=== PATIENT | male | born 1995 | race Caucasian/White ===

== ENCOUNTER 2020-03-25 14:26 | Emergency (ER) | payer BC, OTHER ==
[~2020-03-25] VITALS: Ht 185.4 cm; Wt 66.7 kg
[2020-03-25] MEDS ORDERED: SUBVENITE150 MG PO (14:41)
--- OUTSIDE RECORDS SUMMARY | 2020-03-25 16:10 | XMS ---
PreManage Notification: SPRING MCNAMARA Security Seed Potato Arranger Events No recent Security Events currently on file CRITERIA MET - [facility] - 2 Visits in 30 Days CARE PROVIDERS Jose Perez Community Health Worker 06/29/2019-Dionicio Navarro - PHONE: [phone] [facility] PHONE: Unknown Jeanette has no Care Guidelines for this patient. EScotty VISIT COUNT (12 MO.) [address] [place] [address] TOTAL 8 NOTE: Visits indicate total known visits. ED/UCC VISIT TRACKING (12 MO.) 03/25/2020 14:28 [facility] [place] TYPE: Emergency COMPLAINT: - CHIN LAC 02/24/2020 04:15 [facility] [place] TYPE: Emergency DIAGNOSES: - Unspecified convulsions - siezure 12/19/2019 20:24 [facility] [place] [facility]: Emergency DIAGNOSES: - AMB - Seizure (Adult - Prior Hx Of) - Unspecified convulsions 11/27/2019 11:17 [facility] DIAGNOSES: - SEIZURES 09/28/2019 10:12 [facility] TYPE: Emergency DIAGNOSES: - Left Knee Pain - Knee Pain - Unspecified injury of left lower leg, initial encounter 07/19/2019 08:04 [facility] [place] TYPE: Emergency DIAGNOSES: - siezures - Epilepsy, unspecified, not intractable, without status epilep 07/11/2019 07:43 [facility] [place] TYPE: Emergency DIAGNOSES: - Epilepsy, unspecified, not intractable, without status epilep - SEIZURE - Unspecified convulsions 06/26/2019 08:27 [facility] [place] TYPE: Emergency DIAGNOSES: - seizure - Unspecified convulsions INPATIENT VISIT TRACKING (12 MO.) 11/27/2019 11:17 [facility] [place] TYPE: Medical Surgical DIAGNOSES: - SEIZURES - Unspecified convulsions [email or web address]
[2020-03-25] MEDS ORDERED: CLEOCIN HCL300 MG PO (18:47)
--- NOTE | 2020-03-27 16:34 | EKG ---
[facility] [address] [facility] [place] [address] Signed Normal sinus rhythm Incomplete right bundle branch block Borderline ECG No previous ECGs available Confirmed by ALEJANDRO CHANG DO ([id number]) on 03/27/2020 4:33:55 PM Electronically Signed By: ALEJANDRO CHANG DO 03/27/20 1634 PATIENT NAME: SPRING MCNAMARA Electrocardiogram DATE OF : [birth year] PHYSICIAN: ALEJANDRO CHANG DO REPORT #: [id number] REPORT IS CONFIDENTIAL AND NOT TO BE RELEASED WITHOUT AUTHORIZATION
== END 2020-03-25 19:04 ==
LOC: ED 14:26
PROC: 0HQ1XZZ Repair Face Skin, External Approach (ICD-10-PCS; principal; 2020-03-25)
DX: R56.9 Unspecified convulsions (principal); S01.81XA Laceration without foreign body of other part of head, initial encounter; F17.200 Nicotine dependence, unspecified, uncomplicated; Z23 Encounter for immunization; Z79.899 Other long term (current) drug therapy; X58.XXXA Exposure to other specified factors, initial encounter
CPT/HCPCS: 12011; 80053; 85025; 90471; 90715; 93005; 93010; 99284-25

== ENCOUNTER 2020-04-29 21:51 | Emergency (ER) | payer BC, OTHER ==
[~2020-04-29] VITALS: Ht 185.4 cm; Wt 66.7 kg
--- OUTSIDE RECORDS SUMMARY | ~2020-04-29 | XMS | Encounter Summary ---
Demographics + + + | Address | [address] | | | [place] [address] | + + + | Home Phone | | + + + | Preferred Language | Unknown | + + + | Marital Status | Single | + + + | Latter-Day Affiliation | 1013 | + + + | Race | Unknown | + + + | Ethnic Group | Unknown | + + + Author + + + | Author | [facility] | | | and [place] | + + + | Organization | [facility] | | | and [place] | + + + | Address | Unknown | + + + | Phone | Unavailable | + + + Support + + + + + | Name | Relationship | Address | Phone | + + + + + | Mandy Newton | ECON | [address] | | | | | [place] | | | | | [address] | | + + + + + Care Team Providers + +------+ + | Care Automatic Dry Starch Operator Name | Role | Phone | + +------+ + | Missy Gaston | PCP | | + +------+ + Encounter Details +--------+ + + + + | Date | Type | Department | Care Team | Description | +--------+ + + + + | 12/08/ | Documentati | [facility] | Tessa Dominguez, | | | 2016 | on | [facility] | MD [address] | | | | | [address] | [address] [place], | | | | | [address] [place] | [place] [address] | | | | | [address] | [phone] | | | | | [phone] | | | +--------+ + + + + Social History + +-------+ +--------+------+ | Tobacco Use | Types | Packs/Day | Years | Date | | | | | Used | | + +-------+ +--------+------+ | Never Smoker | | | | | + +-------+ +--------+------+ + +---+---+---+ | Smokeless Tobacco: | | | | | Never Used | | | | + +---+---+---+ + + +---------+ + | Alcohol Use | Drinks/Week | oz/Week | Comments | + + +---------+ + | No | | | | + + +---------+ + + + + | Sex Assigned at | Date Recorded | | | | + + + | Not on file | | + + + documented as of this encounter Progress Notes Tessa Dominguez MD - 12/09/2015 2:31 [facility] Rene was just seen. These were dated 11/25/15. Basically they state that he was supposed to be on Lamictal and Keppra and Depakote for seizures but he wasn't taking it properly. He then resumed the medication suddenly and then was feeling toxic and why he cam e to the ER. They checked blood work on him and his CBC was essentially normal. His valpro ic acid level was high. His Lamictal and Keppra level were pending at that time. And then it was noted that patient return to the ER on 228 after an episode shaking at home. Paramed ics gave him Versed and the shaking improved. Dr. Arnett was called to the patient's room b ecause of episode of apparent shaking. Rene was able to communicate with him and follow commands as well as head was shaking forward and back. They also observed to videotape epis ode from home with head shaking from [id number] and groaning but also able to communicate with his family. The ER physician felt this had the appearance of a pseudoseizure. He was given a milligram of Ativan in the shaking stopped and he was conversant and talked about hi s upcoming interview at [facility]. They then discharged him on 1 mg Ativan 3 times daily and to follow-up with neurology for consideration of repeat EEG. They did do a CAT scan of his head when he was there which was normal. His urine drug screen was negativeElectronically s igned by Tessa Dominguez MD at 12/09/2015 2:38 PM PDTdocumented in this encounter Plan of Treatment + + +--------+ + + | Name | Type | Priori | Associated Diagnoses | Order Schedule | | | | ty | | | + + +--------+ + + | Inpatient Video EEG | Neurology | Routin | History of | 1 Occurrences | | Monitoring | | e | pseudoseizure | starting 12/09/2015 | | | | | | until 12/09/2016 | + + +--------+ + + documented as of this encounter Visit Diagnoses + + | Diagnosis | + + | History of pseudoseizure - Primary | + + documented in this encounter"
--- OUTSIDE RECORDS SUMMARY | ~2020-04-29 | XMS | Encounter Summary ---
Demographics + + + | Address | [address] | | | [place] [address] | + + + | Home Phone | | + + + | Preferred Language | Unknown | + + + | Marital Status | Single | + + + | Yazdanism Affiliation | CHR | + + + | Race | White | + + + | Ethnic Group | Not or | + + + Author + + + | Author | [facility] | + + + | Organization | [facility] | + + + | Address | Unknown | + + + | Phone | Unavailable | + + + Support + + + + + | Name | Relationship | Address | Phone | + + + + + | Mandy Willett | ECON | [address] | | | | | [place] | | | | | [address] | | + + + + + Care Team Providers + +------+ + | Care Real Estate Listing Consultant Name | Role | Phone | + +------+ + | Missy Gaston | PCP | | + +------+ + Encounter Details +--------+ + + + + | Date | Type | Department | Care Team | Description | +--------+ + + + + | 02/26/ | Document-Sc | UNKNOWN DEPARTMENT | Jeffry Kiran | | | 2009 | anned | [address] | [phone] | | | | | [address] | | | | | | [place], [place] | | | | | | [address] | | | +--------+ + + + + Social History + +-------+ +--------+------+ | Tobacco Use | Types | Packs/Day | Years | Date | | | | | Used | | + +-------+ +--------+------+ | Never Assessed | | | | | + +-------+ +--------+------+ + + + | Sex Assigned at | Date Recorded | | | | + + + | Not on file | | + + + + + + + | Job Start Date | Occupation | Industry | + + + + | Not on file | Not on file | Not on file | + + + + + + + + | Travel History | Travel Start | Travel End | + + + + + + | No recent travel history available. | + + documented as of this encounter Plan of Treatment Not on filedocumented as of this encounter Visit Diagnoses Not on filedocumented in this encounter"
--- OUTSIDE RECORDS SUMMARY | ~2020-04-29 | XMS | Encounter Summary ---
Demographics + + + | Address | [address] | | | [place] [address] | + + + | Home Phone | | + + + | Preferred Language | Unknown | + + + | Marital Status | Single | + + + | Methodist Affiliation | 1013 | + + + | Race | Unknown | + + + | Ethnic Group | Unknown | + + + Author + + + | Author | [facility] | | | and [place] | + + + | Organization | [facility] | | | and [place] | + + + | Address | Unknown | + + + | Phone | Unavailable | + + + Support + + + + + | Name | Relationship | Address | Phone | + + + + + | aMndy Newton | ECON | [address] | | | | | [place] | | | | | [address] | | + + + + + Care Team Providers + +------+ + | Care Spanner Operator Name | Role | Phone | + +------+ + | No, Physician | PCP | Unavailable | + +------+ + Reason for Visit +--------+--------+ + | Reason | Onset | Comments | | | Date | | +--------+--------+ + | Other | 11/03/ | | | | 2019 | | +--------+--------+ + Encounter Details +--------+ + + + + | Date | Type | Department | Care Team | Description | +--------+ + + + + | 11/03/ | Telephone | [place] | Tessa Dominguez, | Other | | 2019 | | [facility] | MD [address] | | | | | [address] | [address] [place], | | | | | [address] [place] | [place] [address] | | | | | [address] | [phone] | | | | | [phone] | | | +--------+ + + + [...] + + documented as of this encounter Miscellaneous Notes Telephone Encounter - Ashley Chavez CMA - 11/07/2018 10:12 AM PSTkeppra has been added to his medication list. el ephone Encounter - Tessa Dominguez MD - 11/07/2018 10:02 AM PSTSpoke with the facility and spoke with the PA. He was continuing to have seizures on Lamictal 300 mg twice daily so his detox facility added keppra 500 mg twice daily and he's been doing well staying seizure suzanna e. Just wanted to let us know. I'm ok with this management. elephone Encounter - Ashley Chavez CMA - 11/04/2018 4:25 PM PSTM Torin BUTLER is calling from [facility] regarding pt. Electronically sign ed by Ashley Chavez CMA at 11/04/2018 4:26 PM PSTTelephone Encounter - Tessa Dominguez MD - 11/04/2018 11:35 AM PSTReturned phone call but nurse out of office today. Left a message with the medical secretary receptionist to call us back if needed. elephone Encounter - Ashley Chavez CMA - 11/04/2018 9:22 AM PSTTim othy called again last night right before 5.Electronically signed by Ashley Chavez CMA at 9:22 AM PSTTelephone Encounter - Ashley Chavez CMA - 11/03/2018 2:38 PM PSTTimot hy (nurse) @ [facility] is calling to discuss Rene. His call back number is . documented in th is encounter Plan of Treatment Not on filedocumented as of this encounter Visit Diagnoses Not on filedocumented in this encounter"
--- OUTSIDE RECORDS SUMMARY | ~2020-04-29 | XMS | Encounter Summary ---
Demographics + + + | Address | [address] | | | [place] [address] | + + + | Home Phone | | + + + | Preferred Language | Unknown | + + + | Marital Status | Single | + + + | Adventist Affiliation | 1013 | + + + | Race | Unknown | + + + | Ethnic Group | Unknown | + + + Author + + + | Author | [facility] | | | and [place] | + + + | Organization | [facility] | | | and [place] | [...] [place] | | | | | [address] | | + + + + + Care Team Providers + +------+ + | Care Pipe Fitter Gas Pipe Name | Role | Phone | + +------+ + | Missy Gaston | PCP | | + +------+ + Reason for Visit +--------+--------+ + | Reason | Onset | Comments | | | Date | | +--------+--------+ + | Other | / | | | | 2015 | | +--------+--------+ + Encounter Details +--------+ + + + + | Date | Type | Department | Care Team | Description | +--------+ + + + + | / | Telephone | [place] | Tessa Dominguez, | Other | | 2016 | | [facility] | MD [address] | | | | | [address] | [address] [place], | | | | | [address] [place] | [place] [address] | | | | | [address] | [phone] | | | | | [phone] | | | +--------+ + + + [...] this encounter Miscellaneous Notes Telephone Encounter - Av Galvez CMA - 11/25/2015 11:00 AM PSTCall back number for mom. [phone] signed by Av Galvez CMA at 11/25/2015 11:01 AM PSTTeleph one Encounter - Ashley Chavez CMA - 11/25/2015 10:00 AM PSTHospital records are in you in b julia. elephone Encoun ter - Ashley Chavez CMA - 11/25/2015 9:07 AM PSTMom called and left a message stating Isiah linton was in the ER yesterday. There are some issues with Rene's medication dosing. The onc all doctor yesterday told her to contact the office today. I called and spoke to mom. She said that she does not think Rene was truthful at his asia ointment earlier this month. She recently found full bottles of medicine from July. Abou t a week ago he started taking his full dose of lamictal and keppra. He has been slurring hi s speech, he has vertigo, and has been having some psychotic episodes. He ended up in the ER twice yesterday. He was given versed and ativan.She said the oncall doctor thinks he starte d taking his medications too fast last week. Mom wants to know if they should re-titrate his lamictal. She also questions if he even needs to be on depakote since he was not taking his medications. Mom is off work waiting to hear from someone. He was seen in the ER at [facility] in [place]. I will get copies of his shantanu rds. documented in this encounter Plan of Treatment Not on filedocumented as of this encounter Visit Diagnoses Not on filedocumented in this encounter"
--- OUTSIDE RECORDS SUMMARY | ~2020-04-29 | XMS | Encounter Summary ---
Demographics + + + | Address | [address] | | | [place] [address] | + + + | Home Phone | | + + + | Preferred Language | Unknown | + + + | Marital Status | Single | + + + | Confucianism Affiliation | 1013 | + + + | Race | Unknown | + + + | Ethnic Group | Unknown | + + + Author + + + | Author | [facility] | | | and [place] | + + + | Organization | [facility] | | | and [place] [...] [place] | | | | | [address] | | + + + + + Care Team Providers + +------+ + | Care Manager Commission Name | Role | Phone | + +------+ + | Missy Gaston | PCP | | + +------+ + Reason for Visit + + + | Reason | Comments | + + + | Medication Refill | | + + + Encounter Details +--------+--------+ + + + | Date | Type | Department | Care Team | Description | +--------+--------+ + + + | 02/01/ | Refill | [place] | Tessa Dominguez, | Medication Refill | | 2018 | | [facility] | MD [address] | | | | | [address] | [address] [place], | | | | | [address] | [place] [address] | | | | | [address] | [phone] | | | | | [phone] | | | +--------+--------+ + + + Social History + +-------+ [...] this encounter Miscellaneous Notes Telephone Encounter - Erasmo Wu, Copying Machine Repairer - 02/01/2018 9:17 AM PDTReceived refill request for lamotrigine 150 mg tab. Last written on 01/25/17, next appt is not sched ed. doc umented in this encounter Plan of Treatment Not on filedocumented as of this encounter Visit Diagnoses Not on filedocumented in this encounter"
--- OUTSIDE RECORDS SUMMARY | ~2020-04-29 | XMS | Encounter Summary ---
Demographics + + + | Address | [address] | | | [place] [address] | + + + | Home Phone | | + + + | Preferred Language | Unknown | + + + | Marital Status | Single | + + + | Jainism Affiliation | 1013 | + + + | Race | Unknown | + + + | Ethnic Group | Unknown | + + + Author + + + | Author | [facility] | | | and [place] | + + + | Organization | [facility] | | | and [place] [...] [place] | | | | | [address] | | + + + + + Care Team Providers + +------+ + | Care Group Managing Director Name | Role | Phone | + +------+ + | Missy Gaston | PCP | | + +------+ + Reason for Visit + + + | Reason | Comments | + + + | Follow-up | | + + + | Epilepsy | | + + + Evaluate & Treat (Routine) +--------+--------+ + + + + | Status | Reason | Specialty | Diagnoses / | Referred By | Referred To | | | | | Procedures | Contact | Contact | +--------+--------+ + + + + | Closed | | Neurology | Diagnoses | Marilin, | Angelica | | | | | ZOHRA | Missy | MD Tessa | | | | | Procedures | [place] [address] | [address] | | | | | NEW PATIENT | [address] | [address] | | | | | | [place] | [place] | | | | | | [address] | [address] Phone: | | | | | | Phone: | [phone] | | | | | | [phone] | Fax: | | | | | | Fax: | [phone] | | | | | | [phone] | | +--------+--------+ + + + + Encounter Details +--------+---------+ + + + | Date | Type | Department | Care Team | Description | +--------+---------+ + + + | 10/09/ | Office | [place] | Tessa Dominguez, | Generalized | | 2015 | Visit | [facility] [address] | MD [address] | nonconvulsive | | | | [address] | [address] [place], | epilepsy without | | | | [address] [place], [place] | [place] [address] | mention of | | | | [address] | [phone] | intractable epilepsy | | | | [phone] | | ([facility]) (Primary Dx) | +--------+---------+ + + + Social History + +-------+ [...] + + documented as of this encounter Last Filed Vital Signs + + + + + | Vital Sign | Reading | Time Taken | Comments | + + + + + | Blood Pressure | 112/64 | 10/09/2014 1:35 PM | | | | | PST | | + + + + + | Pulse | 68 | 10/09/2014 1:35 PM | | | | | PST | | + + + + + | Temperature | - | - | | + + + + + | Respiratory Rate | - | - | | + + + + + | Oxygen Saturation | - | - | | + + + + + | Inhaled Oxygen | - | - | | | Concentration | | | | + + + + + | Weight | 73 kg (161 lb) | 10/09/2014 1:35 PM | | | | | PST | | + + + + + | Height | - | - | | + + + + + | Body Mass Index | 22.45 | 12/01/2013 8:14 AM | | | | | PST | | + + + + + documented in this encounter Progress Notes Tessa Dominguez MD - 10/09/2014 1:36 PM PSTFormatting of this note might be different fro m the original. Chief complaint: Primary generalized epilepsy History of Present Illness: Rene presents for follow up evaluation regarding epilepsy. 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 His first ever seizure was a general ized tonic-clonic seizure. His last seizure occurred on November 18, 2013. He is brushing his teeth one his mother heard a crash in the bathroom. It is dry stuck on a seizure that l asted about a minute. Afterwards he was quite postictal and then he had another generalized tonic-clonic seizure. The only provoking factors was that he was working a chaotic work [employer] and he would stay up quite weight at one of his jobs. He was quite sleep deprived wh en it happened. Also he was having myoclonic jerking at that time as well which was worse i n the morning. There is no family history of epilepsy. He had open-heart surgery as an inf ant and also a meningitis when he was 8 months old. On November 18, his Lamictal was increa sed. He takes the extended release formulation. He takes 400 mg in the morning and 500 mg in the evening. Since his medications have increased he has not had any further seizures or myoclonic jerks. He had a strange episode on August 30 which his mother called our office to report. That morning he went to work at his job like he normally does but he was feelin g under the weather so he took some cold medicine at his job which he does not know the name of. He took it about an hour or 2 after he had taken his morning dose of Lamictal. Afterw ards he felt a sensation where he was swaying and he felt that his eyes were rolling but he remained conscious and he remained alert and he realized that this was occurring. There was no convulsion witnessed. There was no loss of time. There was no staring spell. There wa s no actual seizure witnessed. He just had his strange feeling. He then remained at work t he remainder of the day. 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 His mother was afraid that willian ybe at some type of strange partial seizure. He doesn't believe he had a partial seizure an d he never took the medication again. Since that time he has not had any further events. H e denies any side effects from his current dose of Lamictal. He denies any mood change. Th ere is no suicide or homicidal thoughts. Past medical history, past surgical history, allergies, medications, family history and soc ial history were all reviewed and all remain unchanged except for what was mentioned in the HPI. Review of Systems: Please refer to the HPI for further details and all other systems negative including consit utional, integumentary, hematological, oncological, endocrine, immunological, GI, , Reading Coach, P ulmonary, Cardiac, Musculoskeletal, Neurological, and Pyschiatric systems. Current Medications: Current Outpatient Prescriptions Medication Sig Dispense Refill lamoTRIgine (LAMICTAL XR) 100 MG TB24 Take 1 pill nightly by mouth. 31 tablet 12 LamoTRIgine 200 MG TB24 TAKE TWO TABLETS BY MOUTH TWICE DAILY 360 each 0 Allergies: No Known Allergies Vital Signs: BP 112/64 | Pulse 68 | Wt 73.029 kg (161 lb) Physical Exam: General: well nourished patient sitting in NAD HEENT: Atraumatic, normocephalic, conjunctivae are intact, no rhinnorhea present, no gingiv al hyperplasia, Neck: neck supple, no carotid bruits, no lymphadenopathy Ext: no cyanosis or edema Neuro: MS: Alert and oriented to person, place, time. Able to name 3/3 objects after 5 efrain radha, can follow 3 step commands without difficulty, can spell the color "black" forward and backward, able to name and repeat, no signs of aphasia, judgement intact, conversation is ap propriate. CN: PERRL, VA 20/20 bilaterally, funduscopic exam normal bilaterally with no signs of papil ledema and crisp disc margins with spontaneous venous pulsations, Extraocular movements inta ct with no signs of nystagmus, visual gilbert full, no facial droop, no decreased sensation i n V1-V3 bilaterally, palatte raises symmetrically, no tongue deviation without lateral tongu e bite flores, shoulder shrug intact bilaterally, hearing intact to finger rub bilaterally Gait: intact to tandem, heel, toe and regular walking without signs of ataxia. Rhomberg neg ative. Motor: Power 5/5 in all extremities with good tone and bulk. No adventitious movements seen . Sensory: Intact to light touch throughout. No signs of neglect. Coordination: intact to finger to nose and heel to andres without signs of dysmetria or dysdi dokinesia with rapidly alternating movements. Assessment & Plan: Mr. Willett is a 18-year-old gentleman with a history of primary generalized epilepsy who in August had a weird interaction between his seizure medicine and cold medicine. Oftent imes cold medicines can containing gradient such as decongestants they can interfere with th e metabolism of seizure medications. I think what may have happened that morning is that th e interaction the Braulio Lamictal level to rise and he was feeling toxic side effects from h is Lamictal. It sounds as if he had nystatin diplopia as well as some ataxia. It does not sound consistent with any type of seizure activity. His last seizure was November 18 014. We will continue him on his current dose of his Lamictal which is the extended release formulation 400 mg in the morning and 500 mg at night. There is no signs of toxicity on ex am today. We will get his Lamictal level to make absolute sure is within therapeutic range. We will also check a CBC and conference a metabolic profile to make absolute sure everythi ng is within normal limits. He will followup in clinic with me in one year. He will contin ue to avoid things that can trigger primary generalized epilepsy such as sleep deprivation, alcohol. For than 25 minutes was with the patient and over half of this time spent counseling regard ing his epilepsy. (1:30-2pm). This report was transcribed using voice recognition software. Every effort was made to ensu re accuracy; however, inadvertent computerized tool machinist errors may be present. Updated Medications: Current Outpatient Prescriptions Medication Sig Dispense Refill lamoTRIgine (LAMICTAL XR) 100 MG TB24 Take 1 pill nightly by mouth. 31 tablet 12 LamoTRIgine 200 MG TB24 TAKE TWO TABLETS BY MOUTH TWICE DAILY 360 each 0 Cc; Missy Anayaectronicdhruv signed by Tessa Dominguez MD at 10/09/2014 2:23 PM PS Tdocumented in this encounter Plan of Treatment Not on filedocumented as of this encounter Results Comprehensive Metabolic Panel (10/09/2014 2:16 PM PST) + + + + + + | Component | Value | Ref Range | Performed | Pathologist | | | | | At | Signature | + + + + + + | Na | 138 | 135 - 145 | [facility] | | | | | mmol/L | [facility] | | | [facility] | | | | | | MED[facility] | | | | | | CENTER | | | | | | LABORATORY | | + + + + + + | K | 4.1 | 3.5 - 5.0 | [facility] | | | | | mmol/L | [facility] | | | | | [facility] | | | | | | MEDICAL | | | | | | CENTER | | | | | | LABORATORY | | + + + + + + | Cl | 102 | 99 - 109 mmol/L | [facility] | | | | | | [facility] | [facility] | [facility] | | | | | | [facility] | | | | | | [facility]ENTER | | | | | | LABORATORY | | + + + + + + | CO2 | 31 (H) | 21 - 28 mmol/L | [facility] | | | | | | [facility] | | [facility] | [facility] | | | | | | [facility] | | | | | | CENTER | | | | | | LABORATORY | | + + + + + + | Glucose | 95Comment: Bahraini | 65 - 99 mg/dL | [facility] | | | | Diabetes Association | | [facility] | | | | diagnostic categories | | HEART | | | | for non adults: | | MEDICAL | | | | Impaired fasting | | CENTER | | | | glucose 100 to 125 | | LABORATORY | | | | mg/dL. A fasting | | | | | | glucose result of 126 | | | | | | mg/dL or greater | | | | | | indicates diabetes if | | | | | | the abnormality is | | | | | | confirmed on a | | | | | | subsequent day. A | | | | | | random glucose result of | | | | | | greater than 200 mg/dL | | | | | | indicates diabetes if | | | | | | the abnormality is | | | | | | confirmed on a | | | | | | subsequent day. | | | | + + + + + + | BUN | 13 | 8 - 25 mg/dL | [facility] | | | | | | [facility] | | | | | | [facility] | | | | | | MED[facility] | | | | | | CENTER | | | | | | LABORATORY | | + + + + + + | Creatinine | 1.11Comment: IDMS | 0.70 - 1.30 | [facility] | | | | traceable creatinine | mg/dL | [facility] | | | | | | [facility] | | | | | | MEDICAL | | | | | | CENTER | | | | | | LABORATORY | | + + + + + + | Calcium | 9.7 | 8.5 - 10.2 | [facility] | | | | | mg/dL | [facility] | | | | | | [facility] | | | | | | MEDICAL | | | | | | CENTER | | | | | | LABORATORY | | + + + + + + | Total | 7.5 | 6.1 - 8.4 g/dL | [facility] | | | Protein | | | [facility] | | | | | | [facility] | | | | | | MED[facility] | | | | | | CENTER | | | | | | LABORATORY | | + + + + + + | Albumin | 5.1 (H) | 3.5 - 5.0 g/dL | [facility] | | | | | | [facility] | | | | | | [facility] | | | | | | [facility] | | | | | | CENTER | | | | | | LABORATORY | | + + + + + + | Bilirubin | 0.4 | 0.1 - 1.5 mg/dL | [facility] | | | Total | | | [facility] | | | | | | [facility] | | | | | | MEDICAL | | | | | | CENTER | | | | | | LABORATORY | | + + + + + + | Alkaline | 106 | 35 - 115 U/L | [facility] | | | Phosphatase | | | [facility] | | | | | | [facility] | | | | | | MEDICAL | | | | | | CENTER | | | | | | LABORATORY | | + + + + + + | AST | 14 | 10 - 45 U/L | [facility] | | | | | | [facility] | | | | | | [facility] | | | | | | MED[facility] | | | | | | CENTER | | | | | | LABORATORY | | + + + + + + | ALT | 10 | 10 - 65 U/L | [facility] | | | | | | [facility] | | | | | | [facility] | | | | | | MED[facility] | | | | | | CENTER | | | | | | LABORATORY | | + + + + + + | Anion Gap | 5 | 5 - 16 mmol/L | [facility] | | | | | | [facility] | | | | | | [facility] | | | | | | MED[facility] | | | | | | CENTER | | | | | | LABORATORY | | + + + + + + | Estimated | Cannot calculate. | >60 | [facility] | | | GFR | | ml/min/1.73m2 | [facility] | | | | | | [facility] | | | | | | MED[facility] | | | | | | CENTER | | | | | | LABORATORY | | + + + + + + + + | Specimen | + + | Blood specimen | | (specimen) | + + + + + + + | Performing | Address | City/State/Zipcode | Phone Number | | Organization | | | | + + + + + | [facility] | [address] | [place] [address] | | | [facility] | | | | | LABORATORY | | | | + + + + + CBC with Differential (10/09/2014 2:16 PM PST) + + + + + + | Component | Value | Ref Range | Performed | Pathologist | | | | | At | Signature | + + + + + + | White Blood | 7.9 | 3.8 - 11.0 K/uL | [facility] | | | Cells | | | [facility] | | | | | | [facility] | | | | | | MED[facility] | | | | | | CENTER | | | | | | LABORATORY | | + + + + + + | Red Blood | 5.28 | 4.20 - 5.70 | [facility] | | | Cells | | M/uL | [facility] | | | | | | [facility] | | | | | | MEDICAL | | | | | | CENTER | | | | | | LABORATORY | | + + + + + + | Hemoglobin | 15.1 | 13.2 - 17.0 | [facility] | | | | | g/dL | [facility] | | | | | | [facility] | | | | | | MEDICAL | | | | | | CENTER | | | | | | LABORATORY | | + + + + + + | Hematocrit | 44.7 | 39.0 - 50.0 % | [facility] | | | | | | [facility] | | | | | | [facility] | | | | | | MED[facility] | | | | | | CENTER | | | | | | LABORATORY | | + + + + + + | MCV | 84.6 | 80.0 - 100.0 fL | [facility] | | | | | | [facility] | | | | | | [facility] | | | | | | [facility] | | | | | | CENTER | | | | | | LABORATORY | | + + + + + + | MCH | 28.5 | 27.0 - 34.0 pg | [facility] | | | | | | [facility] | | | | | | [facility] | | | | | | [facility] | | | | | | CENTER | | | | | | LABORATORY | | + + + + + + | MCHC | 33.7 | 32.0 - 35.5 | [facility] | | | | | g/dL | [facility] | | | | | | [facility] | | | | | | MEDICAL | | | | | | CENTER | | | | | | LABORATORY | | + + + + + + | RDW-CV | 13.0 | 11.0 - 15.5 % | [facility] | | | | | | [facility] | | | | | [facility] | | | | | | [facility] | | | | | | CENTER | | | | | | LABORATORY | | + + + + + + | Platelet | 213 | 150 - 400 K/uL | [facility] | | | Count | | | [facility] | | | | | | [facility] | | | | | | MEDICAL | | | | | | CENTER | | | | | | LABORATORY | | + + + + + + | Differentia | Automated | | [facility] | | | l Type | | | [facility] | | | | | | [facility] | | | | | | MEDICAL | | | | | | CENTER | | | | | | LABORATORY | | + + + + + + | % | 73.2 | 40.0 - 75.0 % | [facility] | | | Neutrophils | | | [facility] | | | | | | [facility] | | | | | | MEDICAL | | | | | | CENTER | | | | | | LABORATORY | | + + + + + + | % | 17.7 | 15.0 - 48.0 % | [facility] | | | Lymphocytes | | | [facility] | | | | | | [facility] | | | | | | MEDICAL | | | | | | CENTER | | | | | | LABORATORY | | + + + + + + | % Monocytes | 7.1 | 0.0 - 12.0 % | [facility] | | | | | | [facility] | | | | | | [facility] | | | | | | [facility] | | | | | | CENTER | | | | | | LABORATORY | | + + + + + + | % | 1.5 | 0.0 - 7.0 % | [facility] | | | Eosinophils | | | [facility] | | | | | | HE[facility] | | | | | | MEDICAL | | | | | | CENTER | | | | | | LABORATORY | | + + + + + + | % Basophils | 0.5 | 0.0 - 2.0 % | [facility] | | | | | | [facility] | | | | | | [facility] | | | | | | [facility] | | | | | | CENTER | | | | | | LABORATORY | | + + + + + + | Absolute | 5.80 | 1.90 - 7.40 | [facility] | | | Neutrophils | | K/uL | [facility] | | | | | | [facility] | | | | | | MEDICAL | | | | | | CENTER | | | | | | LABORATORY | | + + + + + + | Absolute | 1.40 | 1.00 - 3.90 | [facility] | | | Lymphocytes | | K/uL | [facility] | | | | | | [facility] | | | | | | MEDICAL | | | | | | CENTER | | | | | | LABORATORY | | + + + + + + | Absolute | 0.60 | 0.00 - 0.80 | [facility] | | | Monocytes | | K/uL | [facility] | | | | | | HE[facility] | | | | | | MEDICAL | | | | | | CENTER | | | | | | LABORATORY | | + + + + + + | Absolute | 0.10 | 0.00 - 0.50 | [facility] | | | Eosinophils | | K/uL | [facility] | | | | | | [facility] | | | | | | MEDICAL | | | | | | CENTER | | | | | | LABORATORY | | + + + + + + | Absolute | 0.00 | 0.00 - 0.10 | [facility] | | | Basophils | | K/uL | [facility] | | | | | | [facility] | | | | | | MEDICAL | | | | | | CENTER | | | | | | LABORATORY | | + + + + + + + + | Specimen | + + | Blood specimen | | (specimen) | + + + + + + + | Performing | Address | City/State/Zipcode | Phone Number | | Organization | | | | + + + + + | [facility] | [address] [place] | [place] [address] | | | [facility] | | | | | LABORATORY | | | | + + + + + Lamotrigine Level (10/09/2014 2:16 PM PST) + + + + + + | Component | Value | Ref Range | Performed | Pathologist | | | | | At | Signature | + + + + + + | LAMOTRIGINE | 14.6 (H)Comment: The | 3.0 - 14.0 | [facility] | | | LVL | proposed therapeutic | ug/mL | [facility] | | | | range for seizure | | HEART | | | | control is 3.0 to 14.0 | | MEDICAL | | | | ug/mL. Concentrations | | CENTER | | | | that exceed 15 ug/mL may | | LABORATORY | | | | contribute to adverse | | | | | | effects. Pharmokinetics | | | | | | varies widely with co | | | | | | medications and/or | | | | | | compromised renal | | | | | | function.Performed at | | | | | | [facility] | | | | | | [facility], | | | | | | [address] [facility], | | | | | | [place] [address] | | | | + + + + + + + + | Specimen | + + | Blood specimen | | (specimen) | + + + + + + + | Performing | Address | City/State/Zipcode | Phone Number | | Organization | | | | + + + + + | [facility] | [address] | [place] [address] | | | [facility] | | | | | LABORATORY | | | | + + + + + documented in this encounter Visit Diagnoses + + | Diagnosis | + + | Generalized nonconvulsive epilepsy without mention of intractable epilepsy - Primary | + + documented in this encounter
--- OUTSIDE RECORDS SUMMARY | ~2020-04-29 | XMS | Encounter Summary ---
Demographics + + + | Address | [address] | | | [place] [address] | + + + | Home Phone | | + + + | Preferred Language | Unknown | + + + | Marital Status | Single | + + + | Sikh Affiliation | 1013 | + + + | Race | Unknown | + + + | Ethnic Group | Unknown | + + + Author + + + | Author | [facility] | | | and [place] | + + + | Organization | [facility] | | | and [place] | + + + | Address | Unknown | + + + | Phone | Unavailable | + + + Support + + + + + | Name | Relationship | Address | Phone | + + + + + | Mandy Newton | ECON | [address] | | | | | [place] | | | | | [address] | | + + + + + Care Team Providers + +------+ + | Care Cement Finisher Name | Role | Phone | + +------+ + | Missy Gaston | PCP | | + +------+ + Encounter Details +--------+ + + + + | Date | Type | Department | Care Team | Description | +--------+ + + + + | 10/09/ | Hospital | [facility] | Tessa Dominguez, | Generalized | | 2015 | Encounter | [facility] | [address] | nonconvulsive | | | | SPECIMEN PROCESS | [address] [place], | epilepsy without | | | | [address] | [place] [address] | mention of | | | | [place], [place] | [phone] | intractable epilepsy | | | | [address] | | ([facility]) | | | | [phone] | | | +--------+ + + + [...] + + documented as of this encounter Medications at Time of Discharge + + + +---------+ + + | Medication | Sig | Dispensed | Refills | Start | End Date | | | | | | Date | | + + + +---------+ + + | lamoTRIgine | Take 1 pill nightly | 31 | 12 | 10/09/19 | | | (LAMICTAL XR) 100 MG | by mouth. | tablet | | 15 | 6 | | TB24 | | | | | | + + + +---------+ + + | LamoTRIgine 200 MG | TAKE TWO TABLETS BY | 124 | 12 | 10/09/19 | | | [id number]: | MOUTH TWICE DAILY | each | | 15 | 6 | | Generalized | | | | | | | nonconvulsive | | | | | | | epilepsy without | | | | | | | mention of | | | | | | | intractable epilepsy | | | | | | + + + +---------+ + + documented as of this encounter Plan of Treatment Not on filedocumented as of this encounter Procedures + +--------+ + + + | Procedure Name | Priori | Date/Time | Associated Diagnosis | Comments | | | ty | | | | + +--------+ + + + | LAMOTRIGINE LEVEL | Routin | 10/09/2014 | Generalized | Results for this | | | e | 2:16 PM | nonconvulsive | procedure are in the | | | | PST | epilepsy without | results section. | | | | | mention of | | | | | | intractable epilepsy | | | | | | (HCC) | | + +--------+ + + + | CBC WITH | Routin | 10/09/2014 | Generalized | Results for this | | DIFFERENTIAL | e | 2:16 PM | nonconvulsive | procedure are in the | | | | PST | epilepsy without | results section. | | | | | mention of | | | | | | intractable epilepsy | | | | | | (HCC) | | + +--------+ + + + | COMPREHENSIVE | Routin | 10/09/2014 | Generalized | Results for this | | METABOLIC PANEL | e | 2:16 PM | nonconvulsive | procedure are in the | | | | PST | epilepsy without | results section. | | | | | mention of | | | | | | intractable epilepsy | | | | | | (HCC) | | + +--------+ + + + documented in this encounter Results Comprehensive Metabolic Panel (10/09/2014 [...] + + + | Glucose | 95Comment: Tuvaluan | 65 - 99 mg/dL | [facility] [...] | + + + + + | [facility] | [address] | [place] [address] | | | [facility] | [...] + + | [facility] | [address] | [place] [address] | | | [facility] | | | | | LABORATORY | [...] | | | | | [address] [facility], | | | | | | [place] [address] | | | | + + + + + + + + | Specimen | + + | Blood specimen | | (specimen) | + + + + + + + | Performing | Address | City/State/Zipcode | Phone Number | | Organization | | | | + + + + + | [facility] | [address] [facility] [address] | [place] [address] | | | [facility] | | | | | LABORATORY | | | | + + + + + documented in this encounter Visit Diagnoses + + | Diagnosis | + + | Generalized nonconvulsive epilepsy without mention of intractable epilepsy | + + documented in this encounter"
--- OUTSIDE RECORDS SUMMARY | ~2020-04-29 | XMS | Encounter Summary ---
Demographics + + + | Address | [address] | | | [place] [address] | + + + | Home Phone | | + + + | Preferred Language | Unknown | + + + | Marital Status | Single | + + + | Voodoo Affiliation | CHR | + + + | Race | White | + + + | Ethnic Group | Not or | + + + Author + + + | Author | [facility] | + + + | Organization | [facility] | + + + | Address | Unknown | + + + | Phone | Unavailable | + + + Support + + + + + | Name | Relationship | Address | Phone | + + + + + | Mandy Willett | ECON | [address] | | | | | [place] | | | | | [address] | | + + + + + Care Team Providers + +------+ + | Care Entry Level Assistant Manager Name | Role | Phone | + +------+ + | Missy Gaston | PCP | | + +------+ + Reason for Visit + + + | Reason | Comments | + + + | Jaw pain | | + + + | Surgery Discussion | | + + + AUTH/CERT +--------+--------+ + + + + | Status | Reason | Specialty | Diagnoses / | Referred By | Referred To | | | | | Procedures | Contact | Contact | +--------+--------+ + + + + | | | | | | | +--------+--------+ + + + + Encounter Details +--------+---------+ + + + | Date | Type | Department | Care Team | Description | +--------+---------+ + + + | 04/21/ | Surgery | [id number] | Luigi Abarca, | BILATERAL ARCH BAR | | 2017 | | JAE [place] | ,DMD [address] | PLACEMENT; REDUCTION | | | | Rd [facility] | [address] | OF RIGHT CONDYLAR | | | | Hospital Admitting | [place], [place] | AND LEFT MANDIBULAR | | | | Desk Located on the | [address] | FRACTURES | | | | 9th floor | [phone] | | | | | [place], [place] | | | | | | [address] | | | +--------+---------+ + + + Social History + +-------+ +--------+------+ | Tobacco Use | Types | Packs/Day | Years | Date | | | | | Used | | + +-------+ +--------+------+ | Former Smoker | | | | | + +-------+ +--------+------+ + +---+---+---+ | Smokeless Tobacco: | | | | | Never Used | | | | + +---+---+---+ + + | Comments: quit few months ago | + + + + +---------+ + | Alcohol Use | Drinks/Week | oz/Week | Comments | + + +---------+ + | Yes | | | rarely | + + +---------+ + + + [...] + + + | Blood Pressure | 120/68 | 04/22/2017 8:37 AM | | | | | PDT | | + + + + + | Pulse | 64 | 04/22/2017 8:37 AM | | | | | PDT | | + + + + + | Temperature | 36.4 C (97.5 F) | 04/22/2017 8:37 AM | | | | | PDT | | + + + + + | Respiratory Rate | 14 | 04/22/2017 8:37 AM | | | | | PDT | | + + + + + | Oxygen Saturation | 96% | 04/22/2017 8:37 AM | | | | | PDT | | + + + + + | Inhaled Oxygen | - | - | | | Concentration | | | | + + + + + | Weight | 65.7 kg (144 lb 13.5 | 04/19/2017 8:58 PM | | | | oz) | PDT | | + + + + + | Height | 185.4 cm (6' 1") | 04/19/2017 8:58 PM | | | | | PDT | | + + + + + | Body Mass Index | 19.11 | 04/19/2017 8:58 PM | | | | | PDT | | + + + + + documented in this encounter Discharge Summaries Alisha Devine DMD, MD - 04/21/2017 7:54 AM PDT [facility] Discharge Summary Discharging Provider: Alisha Devine MD, BAILEY Discharging Attending Physician: Luigi Abarca MD, BAILEY Hospital Stay: 3 day(s) PCP: JUAN García Admission Date: 04/19/2017 Discharge Date: 04/22/2017 Hospital Stay: 3 day(s) Reason for Admission: Right subcondylar fracture of mandible Left body fracture of mandible Principal Final Diagnosis: Right subcondylar fracture of mandible Left body fracture of mandible Additional Diagnoses: None Procedures: Closed reduction of right subcondylar fracture of mandible and left body fracture of mandib le Arch bar placement Hospital Course: Patient presented to [facility] ED on 04/19/17. On 04/11 he has a seizure and fell and hit his chin . On 04/15/17 CT max/face was obtained at an OSH which revealed Right subcondylar fracture o f mandible and Left body fracture of mandible. Patient was admitted in preparation for surgery overnight. On 04/21/17 patient was taken to the OR for closed reduction of left lingual cortex mandibula r fracture and right subcondylar fracture and application of arch bars. Surgery was complete d without complications. Patient had to be straight catheterized for 1 L in PACU. Patient w as voiding, tolerating PO and pain is adequately controlled and was appropriate for discharg e home on POD #1 Discharge Medications: Current Discharge Medication List START taking these medications Details acetaminophen 325 mg oral tablet Take 3 tablets by mouth three times daily. chlorhexidine 0.12 % mucous membrane mouthwash Take 15 mL by mouth two times daily. After m eals Swish undiluted oral rinse around in mouth for 30 seconds, then spit. Do not swallow. Qty: 473 mL, Refills: 1 ondansetron ODT (ZOFRAN ODT) 4 mg oral tablet,disintegrating Dissolve 1 tablet in mouth rodrick ry twelve hours as needed for nausea/vomiting. Qty: 30 tablet, Refills: 0 oxyCODONE (immediate release) 5 mg/5 mL oral solution Take 5-10 mL by mouth every six hours as needed for moderate pain. Indications: Pain Qty: 240 mL, Refills: 0 CONTINUE these medications which have NOT CHANGED Details lamoTRIgine 150 mg oral tablet Take 300 mg by mouth two times daily. Rationale for Medication Changes: Oxycodone prescribed for post operative pain management. Allergies: No Known Allergies Code Status: Full POLST completed: no Additional Instructions: Condition on Discharge Good Diet Liquid Full liquid diet - You will be on a full liquid diet at home. Try to take 48-64 fluid ounc es daily or as instructed. The liquids would include protein drinks, cream of wheat, yogurt without fruit and clear liquids. 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 It is important to use the Peridex (chlorhexidine g luconate) mouthrinse three times per day with meals until you see your doctor back in the inic. RUBBER BANDS You have surgical braces that are wired between the teeth. These will remain on for 4-6 wee ks. You have rubber bands holding your jaws together. The rubber bands are to be left on until your follow up appointment. They can be pulled off or cut if you become nauseous and need t o remove them. If you are having a seizure the rubber bands should be removed. HOME MEDICATIONS Remember to restart taking all your home medications as you were before this hospital stay. PAIN MEDICINE INSTRUCTIONS The primary and most effective medicines for pain control after your surgery will be tyleno l, 1000mg (this is two extra-strength over the counter tablets) and ibuprofen, 600mg (this i s three over the counter tablets) both taken three times daily with meals. Take any pain medication we have prescribed for you as needed. Your pain and need for pain medications should decrease over the next week. The regular use of narcotics (pain medicatio n) will cause constipation, so use of stool softeners or laxatives is recommended. Pain medi cation impairs judgement. DO NOT drive or operate heavy machinery while taking narcotics (pa in medication). If you think you may need a pain prescription refill, please call during office hours M-F 9 am - 5pm. No pain prescriptions will be filled in the evening or on the weekend. Call the instructional aide nutrition counselor at for any of the f ollowing urgent issues: Difficulty breathing or unusual shortness of breath Excessive bleeding Increased drainage from your wounds Fever greater than 101.5 degrees Pain that is not relieved by pain medications Persistent nausea or vomiting For Extreme Emergencies: Call 911 For all other questions, non-urgent issues, or prescription refills call the Oral and Maxil lofacial Surgery clinic at between 9:00am to 4:00pm. Discharge Placement No facility/agency has been selected for the patient. Follow Up: Future Appointments Provider Department Dept Phone Center 05/12/2017 9:00 AM Luigi Abarca [facility] at [facility] [phone] [facility] Schedule the following appointment(s) when you get home Follow up with LUIGI ABARCA MD,DMD In 2 weeks. Specialty: Oral & Maxillofacial Surgery Why: Fracture check Contact information [address] [address] Discharge Physical Exam: Last 24 hour min/max Temp: 36.6 C (97.9 F) Temp Min: 36.3 C (97.3 F) Max: 37.2 C (99 F) Pulse: 75 Pulse Min: 61 Max: 90 Resp: 16 Resp Min: 12 Max: 16 BP: 125/64 BP Min: 125/64 Max: 156/85 SpO2: 95 % SpO2 Min: 93 % Max: 100 % Body mass index is 19.11 kg/(m^2). General: NAD, no distress Head/ Face/ Neck: no LAD, healing wound on chin, no swelling or evidence of infection, no V 3 paresthesia Oral/ Pharynx: Arch bars in place with rubber bands in place occlusion is stable and reprod ucible, teeth #7,8,9,10 fractured CV: well perfused Resp: non labored breathing on RA documented in th is encounter Medications at Time of Discharge + + + +---------+ + + | Medication | Sig | Dispensed | Refills | Start | End Date | | | | | | Date | | + + + +---------+ + + | acetaminophen 325 | Take 3 tablets by | | 0 | 04/21/20 | | | mg oral tablet | mouth three times | | | 17 | | | | daily. | | | | | + + + +---------+ + + | chlorhexidine 0.12 | Take 15 mL by mouth | 473 mL | 1 | 04/21/20 | | | % mucous membrane | two times daily. | | | 17 | | | mouthwash | After meals Swish | | | | | | | undiluted oral rinse | | | | | | | around in mouth for | | | | | | | 30 seconds, then | | | | | | | spit. Do not | | | | | | | swallow. | | | | | + + + +---------+ + + | lamoTRIgine 150 mg | Take 300 mg by mouth | | 0 | | | | oral tablet | two times daily. | | | | | + + + +---------+ + + | ondansetron ODT | Dissolve 1 tablet in | 30 | 0 | 04/21/20 | | | (ZOFRAN ODT) 4 mg | mouth every twelve | tablet | | 17 | | | oral | hours as needed for | | | | | | tablet,disintegratin | nausea/vomiting. | | | | | | g | | | | | | + + + +---------+ + + | oxyCODONE | Take 5-10 mL by | 240 mL | 0 | 04/21/20 | | | (immediate release) | mouth every six | | | 17 | | | 5 mg/5 mL oral | hours as needed for | | | | | | solutionIndications: | moderate pain. 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 Progress Note Attending Physician: Luigi Abarca DMD, MD INTERVAL HX No acute events Closed reduction of left lingual cortex mandibular fracture and right subcondylar fracture and Application of arch bars in OR yesterday Straight catheterized in PACU for 1 L Now voiding SUBJECTIVE No complaints VITALS BP 125/64 | Pulse 75 | Temp 36.6 C (97.9 F) | RR 16 | Ht 1.854 m (6' 1") | Wt 65.7 kg ( 144 lb 13.5 oz) | SpO2 95% | BMI 19.11 kg/(m^2) Vitals trends reviewed independently in [facility] I/Os reviewed independently in [facility] LABS Reviewed independently in [facility] BMP pending IMAGING Radiographic Imaging Type(s): CT from outside facility 04/15/17 Radiographic Findings: R subcondylar fracture displaced medially, L mandibular body fractur e extending anterior and posterior to midline at inferior border EXAM General: NAD, no distress Head/ Face/ Neck: no LAD, healing wound on chin, no swelling or evidence of infection, no V 3 paresthesia Oral/ Pharynx: Arch bars in place with rubber bands in place occlusion is stable and reprod ucible, teeth #7,8,9,10 fractured CV: well perfused Resp: non labored breathing on RA ASSESSMENT 21 y.o. Rene Willett, hospital day 3 with right medial displaced subcondylar fractur e and left body mandibular fracture now s/p Closed reduction of left lingual cortex mandibul ar fracture and right subcondylar fracture and Application of arch bars in OR yesterday PLAN D/c home today Alisha Devine MD, DMD OMFS PGY-3 This patient's working diagnosis and treatment considerations were discussed and formulated in coordination with the resident team and attending staff. Alisha Diop DMD, MD - 04/21/2017 7:44 AM PDT . 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 NPO at midnight SUBJECTIVE No complaints VITALS BP 126/66 | Pulse 64 | Temp 36.7 C (98.1 F) | RR 16 | Ht 1.854 m (6' 1") | Wt 65.7 kg ( 144 lb 13.5 oz) | SpO2 97% | BMI 19.11 kg/(m^2) Vitals trends reviewed independently in [facility] I/Os reviewed independently in [facility] LABS Reviewed independently in [facility] BMP pending IMAGING Radiographic Imaging Type(s): CT from outside facility 04/15/17 Radiographic Findings: R subcondylar fracture displaced medially, L mandibular body fractur e extending anterior and posterior to midline at inferior border EXAM General: NAD, no distress Head/ Face/ Neck: no LAD, healing wound on chin, no swelling or evidence of infection, no V 3 paresthesia Oral/ Pharynx: No oral ommunication of fracture, JOSE MARTIN 35mm, no posterior or anterior open bi te b/l, mandibular deviation to the R upon opening, occlusion is stable and reproducible, te eth #7,8,9,10 fractured, mild ecchymosis of the floor of the mouth, no mobility of mandible or maxilla upon manipulation, CV: well perfused Resp: non labored breathing on RA ASSESSMENT 21 y.o. Rene Willett, hospital day 2 with right medial displaced subcondylar fractur e and left body mandibular fracture who will require closed reduction of the fractures in OR today. Currently his occlusion is stable and reproducible. PLAN -NPO until surgery -Continue maintenance fluids - BMP pending. 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 Alisha Diop DMD, MD - 04/20/2017 8:04 AM PDT . 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 Service Daily Inpatient Progress Note Attending Physician: Luigi Abarca DMD, MD INTERVAL HX No acute events Admitted from the ED for b/l mandibular fracture NPO at midnight SUBJECTIVE No complaints VITALS BP 130/59 | Pulse 61 | Temp 36.7 C (98.1 F) | RR 16 | Ht 1.854 m (6' 1") | Wt 65.7 kg ( 144 lb 13.5 oz) | SpO2 99% | BMI 19.11 kg/(m^2) Vitals trends reviewed independently in epic I/Os reviewed independently in [facility] LABS Reviewed independently in [facility] K 3.2 IMAGING Radiographic Imaging Type(s): CT from outside facility 04/15/17 Radiographic Findings: R subcondylar fracture displaced medially, L mandibular body fractur e extending anterior and posterior to midline at inferior border EXAM General: NAD, no distress Head/ Face/ Neck: no LAD, healing wound on chin, no swelling or evidence of infection, no V 3 paresthesia Oral/ Pharynx: No oral ommunication of fracture, JOSE MARTIN 35mm, no posterior or anterior open bi te b/l, mandibular deviation to the R upon opening, occlusion is stable and reproducible, te eth #7,8,9,10 fractured, mild ecchymosis of the floor of the mouth, no mobility of mandible or maxilla upon manipulation, CV: well perfused Resp: non labored breathing on RA ASSESSMENT 21 y.o. Rene Serna Mary Alicesergey, hospital day 1 with right medial displaced subcondylar fractur e and left body mandibular fracture who will require closed reduction of the fractures in OR today. Currently his occlusion is stable and reproducible. 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 documented in th is encounter Plan of Treatment Not on filedocumented as of this encounter Procedures + +--------+ + + + | Procedure Name | Priori | Date/Time | Associated Diagnosis | Comments | | | ty | | | | + +--------+ + + + | PROCEDURE NOTE | Routin | 05/19/2017 | | Results for this | | | e | 9:38 PM | | procedure are in the | | | | PDT | | results section. | + +--------+ + + + | PANFACIAL FRACTURE | Electi | 04/21/2017 | RIGHT CONDYLAR | | | REPAIR/RECONSTRUCTIO | ve | 10:31 AM | FRACTURE, LEFT | | | N | Surgic | PDT | MANDIBULAR FRACTURE | | | | al | | | | + +--------+ + + + | BASIC METABOLIC SET | Routin | 04/21/2017 | | Results for this | | (NA, K, CL, TCO2, | e | 7:51 AM | | procedure are in the | | BUN, CR, GLU, CA) | | PDT | | results section. | + +--------+ + + + | CARDIOLOGY | | 04/21/2017 | | Results for this | | | | 12:00 AM | | procedure are in the | | | | PDT | | results section. | + +--------+ + + + | CBC (HEMOGRAM) ONLY | Urgent | 04/20/2017 | | Results for this | | | | 7:21 AM | | procedure are in the | | | | PDT | | results section. | + +--------+ + + + | BASIC METABOLIC SET | Urgent | 04/20/2017 | | Results for this | | (NA, K, CL, TCO2, | | 7:21 AM | | procedure are in the | | BUN, CR, GLU, CA) | | PDT | | results section. | + +--------+ + + + | CBC ONLY | Urgent | 04/20/2017 | | Results for this | | | | 7:21 AM | | procedure are in the | | | | PDT | | results section. | + +--------+ + + + | X-RAY CHEST 2 VIEW | Urgent | 04/19/2017 | | Results for this | | | | 6:48 PM | | procedure are in the | | | | PDT | | results section. | + +--------+ + + + | CBC AND AUTO DIFF | Urgent | 04/19/2017 | | Results for this | | | | 6:26 PM | | procedure are in the | | | | PDT | | results section. | + +--------+ + + + | CBC, WITH | Urgent | 04/19/2017 | | Results for this | | DIFFERENTIAL | | 6:26 PM | | procedure are in the | | | | PDT | | results section. | + +--------+ + + + | COMPLETE METABOLIC | Urgent | 04/19/2017 | | Results for this | | SET | | 6:26 PM | | procedure are in the | | (NA,K,CL,CO2,BUN,CRE | | PDT | | results section. | | AT,GLUC,CA,AST,ALT,B | | | | | | BEE TOTAL,ALK | | | | | | PHOS,ALB,PROT TOTAL) | | | | | + +--------+ + + + | COAGULOPATHY PANEL | Urgent | 04/19/2017 | | Results for this | | (INR,APTT,FIBRINOGEN | | 6:26 PM | | procedure are in the | | ) | | PDT | | results section. | + +--------+ + + + | ANTIBODY SCREEN | Urgent | 04/19/2017 | | Results for this | | | | 6:26 PM | | procedure are in the | | | | PDT | | results section. | + +--------+ + + + | TYPE AND SCREEN | Urgent | 04/19/2017 | | Results for this | | | | 6:26 PM | | procedure are in the | | | | PDT | | results section. | + +--------+ + + + | ABO & RH TYPE | Urgent | 04/19/2017 | | Results for this | | | | 6:26 PM | | procedure are in the | | | | PDT | | results section. | + +--------+ + + + | CONFIRMATORY ABO/RH | Routin | 04/19/2017 | | Results for this | | | e | 6:26 PM | | procedure are in the | | | | PDT | | results section. | + +--------+ + + + documented in this encounter Results PROCEDURE NOTE (05/19/2017 9:38 PM PDT) + + + | Narrative | Performed At | + + + | Luigi Abarca MD,BAILEY 05/19/2017 9:26 PM ORAL AND | | | MAXILLOFACIAL SURGERY PHYSICIAN OPERATION REPORT Date: 04/21/2017 | | | Attending: Luigi Abarca DMD, MD Assistants: Elvin Mercado, | | | MD BAILEY, Ronny Benitez DMD, MD I met the patient in the | | | pre-operative area and reviewed consent for the procedure. A | | | discussion of relevant risks and post-operative course was held. All | | | questions were invited and answered. Preoperative Diagnosis | | | Left lingual cortex mandibular fracture and right subcondylar | | | fracture Postoperative Diagnosis same Procedure Performed | | | 1. Closed reduction of left lingual cortex mandibular fracture and | | | right subcondylar fracture 2. Application of arch bars Indication | | | Mr. Willett is a 21 year old male with history of seizure | | | disorder who suffered a bilateral mandibular fracture during a | | | seizure on 04/11/17. He subsequently presented to [facility] for further | | | management on 04/19/17 and was taken to the OR 04/21/17 for closed | | | reduction of his fractures and application of arch bars Anesthesia | | | GETA, no complications Procedure Detail The patient was | | | positioned appropriately and sterilely prepped in standard fashion. | | | Prior to the beginning of the procedure, the team paused to verify | | | the patient | | | | | | s identity, the procedure to be performed in accordance with the | | | consent, and the correct side/site. All relevant images and results | | | were properly labeled and displayed. We addressed antibiotic | | | prophylaxis and fluids for irrigation as applicable to this patient. | | | Any safety precautions were addressed. A second time-out was held | | | per hospital policy. 10cc of 0.5% marcaine 1:200,000 epinephrine | | | was given in bilateral VIVIAN, lingual and long buccal nerve blocks as | | | well as local infiltration around the maxillary vestibule. | | | Occlusion was verified prior to the start of arch bar application, | | | stable occlusion with bilateral posterior contact achievable. | | | Arch bar was applied to the maxilla and secured with 24 gauge | | | wire. Arch bar was applied to the mandible and secured with 24 | | | gauge wire. All wires were verified to be stable and then rosetted | | | into place to assure that no protruding wires were left sticking | | | into the gum tissue. NG tube was passed to suction the stomach. | | | Medium elastics were applied to achieve secure a stable occlusion | | | with equal bilateral posterior contact. Instructions were given to | | | the anesthesia team that elastics can be cut if there is any concern | | | for airway or aspiration. Verified that a scissor should be | | | transported with the patient. Care of the patient was transferred | | | to the anesthesia team who extubated the patient without | | | complication. Findings Stable occlusion with equal bilateral | | | posterior contact achieved Complications None Fluids IVF | | | per anes EBL <10cc UOP n/a Specimens None Drains None | | | Disposition and Post-operative Plan PACU -> patiño and then home | | | later today Elastics to remain until he follows up in clinic with | | | Tevin Scissors to remain at all times with patient, cut | | | elastics with any respiratory or aspiration distress | | | Tevin was present for this case Ronny Benitez, | | | MD BAILEY PGY - [phone] [id number] I was present for the entire procedure | | | as described in the note for this encounter. Luigi Abarca, | | | MD AVAL[facility] FACS | | + + + BASIC METABOLIC SET (NA, K, CL, TCO2, BUN, CR, GLU, CA) (04/21/2017 7:51 AM PDT) + +---------+ + + + | Component | Value | Ref Range | Performed | Pathologist | | | | | At | Signature | + +---------+ + + + | GLUCOSE, | 86 | 70 - 99 mg/dL | [facility] | | | PLASMA | | | LABORATORY | | | (LAB) | | | SERVICES, | | | | | | CORE | | + +---------+ + + + | BUN, PLASMA | 7 | 6 - 20 mg/dL | [facility] | | | (LAB) | | | LABORATORY | | | | | | SERVICES, | | | | | | CORE | | + +---------+ + + + | CREATININE | 0.83 | 0.70 - 1.30 | [facility] | | | PLASMA | | mg/dL | LABORATORY | | | (LAB) | | | SERVICES, | | | | | | CORE | | + +---------+ + + + | EGFR | >60 | >60 mL/min | [facility] | | | - | | | LABORATORY | | | [place]STR[place]IAN | | | SERVICES, | | | | | | CORE | | + +---------+ + + + | EGFR NON | >60 | >60 mL/min | [facility] | | | -TRINI | | | LABORATORY | | | RICAN | | | SERVICES, | | | | | | CORE | | + +---------+ + + + | SODIUM, | 140 | 136 - 145 | [facility] | | | PLASMA | | mmol/L | LABORATORY | | | (LAB) | | | SERVICES, | | | | | | CORE | | + +---------+ + + + | POTASSIUM, | 4.6 | 3.4 - 5.0 | [facility] | | | PLASMA | | mmol/L | LABORATORY | | | (LAB) | | | SERVICES, | | | | | | CORE | | + +---------+ + + + | CHLORIDE, | 107 | 97 - 108 mmol/L | [facility] | | | PLASMA | | | LABORATORY | | | (LAB) | | | SERVICES, | | | | | | CORE | | + +---------+ + + + | TOTAL CO2, | 27 | 21 - 32 mmol/L | [facility] | | | PLASMA | | | LABORATORY | | | (LAB) | | | SERVICES, | | | | | | CORE | | + +---------+ + + + | CALCIUM, | 9.1 | 8.6 - 10.2 | [facility] | | | PLASMA | | mg/dL | LABORATORY | | | (LAB) | | | SERVICES, | | | | | | CORE | | + +---------+ + + + | ANION GAP | 6 | mmol/L | [facility] | | | | | | LABORATORY | | | | | | SERVICES, | | | | | | CORE | | + +---------+ + + + | POTASSIUM | No Hemo | | [facility] | | | CMNT | | | LABORATORY | | | | | | SERVICES, | | | | | | CORE | | + +---------+ + + + + + | Specimen | + + | Blood - Blood | | (substance) | + + + + + | Narrative | Performed At | + + + | Adult glucose reference range change effective 717. GFR is | [facility] | | estimated using the MDRD equation recommended by the National Kidney | LABORATORY | | Disease Education Program. Estimated GFR Interpretive Information: | SERVICES, CORE | | <60 mL/min/1.73 sq m Chronic Kidney Disease | | | <15 mL/min/1.73 sq m Kidney Failure Estimated | | | GFR greater that 60 mL/min/1.73 sq m is of limited clinical value. | | | The MDRD equation is not valid in the following situations: - | | | Patients under 18 years of age - Severe malnutrition or obesity - | | | Vegetarian diet - Rapidly changing kidney function | | + + + + + + + + | Performing | Address | City/State/Zipcode | Phone Number | | Organization | | | | + + + + + | [facility] | [address] | [place] [address] | | | SERVICES, CORE | [address] | | | + + + + + CARDIOLOGY (04/21/2017 12:00 AM PDT) + + + | Narrative | Performed At | + + + | | | + + + CBC (HEMOGRAM) ONLY (04/20/2017 7:21 AM PDT) + + + + + + | Component | Value | Ref Range | Performed | Pathologist | | | | | At | Signature | + + + + + + | WHITE CELL | 4.85 | 3.50 - 10.80 | [facility] | | | COUNT | | K/cu mm | LABORATORY | | | | | | SERVICES, | | | | | | CORE | | + + + + + + | RED CELL | 4.55 | 4.50 - 6.00 | [facility] | | | COUNT | | M/cu mm | LABORATORY | | | | | | SERVICES, | | | | | | CORE | | + + + + + + | HEMOGLOBIN | 12.8 (L) | 13.5 - 17.5 | [facility] | | | | | g/dL | LABORATORY | | | | | | SERVICES, | | | | | | CORE | | + + + + + + | HEMATOCRIT | 37.9 (L) | 41.0 - 53.0 % | [facility] | | | | | | LABORATORY | | | | | | SERVICES, | | | | | | CORE | | + + + + + + | MCV | 83.3 | 80.0 - 96.0 fL | [facility] | | | | | | LABORATORY | | | | | | SERVICES, | | | | | | CORE | | + + + + + + | MCHC | 33.8 | 33.0 - 35.5 | [facility] | | | | | g/dL | LABORATORY | | | | | | SERVICES, | | | | | | CORE | | + + + + + + | RDW SD | 36.6 | 35.1 - 46.3 fL | [facility] | | | | | | LABORATORY | | | | | | SERVICES, | | | | | | CORE | | + + + + + + | PLATELET | 249 | 150 - 400 K/cu | [facility] | | | COUNT | | mm | LABORATORY | | | | | | SERVICES, | | | | | | CORE | | + + + + + + | MPV | 10.1 | 9.7 - 12.3 fL | [facility] | | | | | | LABORATORY | | | | | | SERVICES, | | | | | | CORE | | + + + + + + | NRBC% | 0.0 | 0.0 - 0.3 % | [facility] | | | | | | LABORATORY | | | | | | SERVICES, | | | | | | CORE | | + + + + + + | NRBC# | 0.00 | 0.00 - 0.02 | [facility] | | | | | K/cu mm | LABORATORY | | | | | | SERVICES, | | | | | | CORE | | + + + + + + + + | Specimen | + + | Blood - Blood | | (substance) | + + + + + + + | Performing | Address | City/State/Zipcode | Phone Number | | Organization | | | | + + + + + | [facility] | [address] | [place] [address] | | | SERVICES, CORE | [address] | | | + + + + + BASIC METABOLIC SET (NA, K, CL, TCO2, BUN, CR, GLU, CA) (04/20/2017 7:21 AM PDT) + +---------+ + + + | Component | Value | Ref Range | Performed | Pathologist | | | | | At | Signature | + +---------+ + + + | GLUCOSE, | 92 | 70 - 99 mg/dL | [facility] | | | PLASMA | | | LABORATORY | | | (LAB) | | | SERVICES, | | | | | | CORE | | + +---------+ + + + | BUN, PLASMA | 5 (L) | 6 - 20 mg/dL | [facility] | | | (LAB) | | | LABORATORY | | | | | | SERVICES, | | | | | | CORE | | + +---------+ + + + | CREATININE | 0.87 | 0.70 - 1.30 | [facility] | | | PLASMA | | mg/dL | LABORATORY | | | (LAB) | | | SERVICES, | | | | | | CORE | | + +---------+ + + + | EGFR | >60 | >60 mL/min | [facility] | | | - | | | LABORATORY | | | AUSTRALIAN | | | SERVICES, | | | | | | CORE | | + +---------+ + + + | EGFR NON | >60 | >60 mL/min | [facility] | | | -TRINI | | | LABORATORY | | | RICAN | | | SERVICES, | | | | | | CORE | | + +---------+ + + + | SODIUM, | 140 | 136 - 145 | [facility] | | | PLASMA | | mmol/L | LABORATORY | | | (LAB) | | | SERVICES, | | | | | | CORE | | + +---------+ + + + | POTASSIUM, | 3.2 (L) | 3.4 - 5.0 | [facility] | | | PLASMA | | mmol/L | LABORATORY | | | (LAB) | | | SERVICES, | | | | | | CORE | | + +---------+ + + + | CHLORIDE, | 104 | 97 - 108 mmol/L | [facility] | | | PLASMA | | | LABORATORY | | | (LAB) | | | SERVICES, | | | | | | CORE | | + +---------+ + + + | TOTAL CO2, | 31 | 21 - 32 mmol/L | [facility] | | | PLASMA | | | LABORATORY | | | (LAB) | | | SERVICES, | | | | | | CORE | | + +---------+ + + + | CALCIUM, | 9.1 | 8.6 - 10.2 | [facility] | | | PLASMA | | mg/dL | LABORATORY | | | (LAB) | | | SERVICES, | | | | | | CORE | | + +---------+ + + + | ANION GAP | 5 | mmol/L | [facility] | | | | | | LABORATORY | | | | | | SERVICES, | | | | | | CORE | | + +---------+ + + + | POTASSIUM | No Hemo | | [facility] | | | CMNT | | | LABORATORY | | | | | | SERVICES, | | | | | | CORE | | + +---------+ + + + + + | Specimen | + + | Blood - Blood | | (substance) | + + + + + | Narrative | Performed At | + + + | Adult glucose reference range change effective 7-12-17. GFR is | [facility] | | estimated using the MDRD equation recommended by the National Kidney | LABORATORY | | Disease Education Program. Estimated GFR Interpretive Information: | SERVICES, CORE | | <60 mL/min/1.73 sq m Chronic Kidney Disease | | | <15 mL/min/1.73 sq m Kidney Failure Estimated | | | GFR greater that 60 mL/min/1.73 sq m is of limited clinical value. | | | The MDRD equation is not valid in the following situations: - | | | Patients under 18 years of age - Severe malnutrition or obesity - | | | Vegetarian diet - Rapidly changing kidney function | | + + + + + + + + | Performing | Address | City/State/Zipcode | Phone Number | | Organization | | | | + + + + + | [facility] [employer] | [address] | [place] [address] | | | SERVICES, CORE | [address] | | | + + + + + X-RAY CHEST 2 VIEW (04/19/2017 6:48 PM PDT) + + | Specimen | + + | | + + + + + | Narrative | Performed At | + + + | CHEST 2 VIEWS Indication: 21 year-old jaw fracture status | [facility] | | post seizure. 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 Preoperative film. Comparison studies: No relevant | RECOGNITION | | priors Findings: There is a surgical clip in the right anterior | | | mediastinum, presumably from prior cardiac surgery. Heart size and | | | bony vascularity are within normal limits. Lungs are clear. No pleural | | | effusion or pneumothorax. Impression: Lungs are clear I | | | have personally reviewed the images and, if necessary, edited the | | | report. I agree with the report as now presented. | | + + + + + | Procedure Note | + + | Service Account, Radiant Res In Interface - 04/19/2017 7:37 PM PDT CHEST 2 | | VIEWSIndication: 21 year-old jaw fracture status post seizure. 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 Preoperative film.Comparison studies: No | | relevant priorsFindings:There is a surgical clip in the right anterior mediastinum, | | presumably from prior cardiac surgery. Heart size and bony vascularity are within normal | | limits. Lungs are clear. No pleural effusion or pneumothorax.Impression:Lungs are clear | | I have personally reviewed the images and, if necessary, edited the report. I agree | | with the report as now presented. | |There is a surgical clip in the right anterior mediastinum, presumably from prior cardiac s urgery. Heart size and bony vascularity are within normal limits. Lungs are clear. No pleura l effusion or pneumothorax. | | | |Impression: | |Lungs are clear | | | | | |I have personally reviewed the images and, if necessary, edited the report. I agree with t he report as now presented. | + + + +---------+ + + | Performing | Address | City/State/Zipcode | Phone Number | | Organization | | | | + +---------+ + + | [facility] | | | | | VOICE RECOGNITION | | | | + +---------+ + + ANTIBODY SCREEN (04/19/2017 6:26 PM PDT) + + + + + + | Component | Value | Ref Range | Performed | Pathologist | | | | | At | Signature | + + + + + + | Antibody | Negative | | [facility] | | | Screen | | | LABORATORY | | | | | | SERVICES, | | | | | | TRANSFUSION | | | | | | MEDICINE | | + + + + + + + + | Specimen | + + | Blood - Blood | | (substance) | + + + + + + + | Performing | Address | City/State/Zipcode | Phone Number | | Organization | | | | + + + + + | [facility] | [address] | [place] [address] | | | SERVICES, | [address] | | | | TRANSFUSION MEDICINE | | | | + + + + + ABO & RH TYPE (04/19/2017 6:26 PM PDT) + + + + + + | Component | Value | Ref Range | Performed | Pathologist | | | | | At | Signature | + + + + + + | ABO Group | O | | [facility] | | | | | | LABORATORY | | | | | | SERVICES, | | | | | | TRANSFUSION | | | | | | MEDICINE | | + + + + + + | Rh Type | Positive | | [facility] | | | | | | LABORATORY | | | | | | SERVICES, | | | | | | TRANSFUSION | | | | | | MEDICINE | | + + + + + + + + | Specimen | + + | Blood - Blood | | (substance) | + + + + + + + | Performing | Address | City/State/Zipcode | Phone Number | | Organization | | | | + + + + + | [facility] | [address] | [place] [address] | | | SERVICES, | [address] | | | | TRANSFUSION MEDICINE | | | | + + + + + CBC AND AUTO DIFF (04/19/2017 6:26 PM PDT) + + + + + + | Component | Value | Ref Range | Performed | Pathologist | | | | | At | Signature | + + + + + + | WHITE CELL | 5.76 | 3.50 - 10.80 | [facility] | | | COUNT | | K/cu mm | LABORATORY | | | | | | SERVICES, | | | | | | CORE | | + + + + + + | RED CELL | 4.83 | 4.50 - 6.00 | [facility] | | | COUNT | | M/cu mm | LABORATORY | | | | | | SERVICES, | | | | | | CORE | | + + + + + + | HEMOGLOBIN | 13.8 | 13.5 - 17.5 | [facility] | | | | | g/dL | LABORATORY | | | | | | SERVICES, | | | | | | CORE | | + + + + + + | HEMATOCRIT | 40.5 (L) | 41.0 - 53.0 % | [facility] | | | | | | LABORATORY | | | | | | SERVICES, | | | | | | CORE | | + + + + + + | MCV | 83.9 | 80.0 - 96.0 fL | [facility] | | | | | | LABORATORY | | | | | | SERVICES, | | | | | | CORE | | + + + + + + | MCHC | 34.1 | 33.0 - 35.5 | [facility] | | | | | g/dL | LABORATORY | | | | | | SERVICES, | | | | | | CORE | | + + + + + + | RDW SD | 36.1 | 35.1 - 46.3 fL | [facility] | | | | | | LABORATORY | | | | | | SERVICES, | | | | | | CORE | | + + + + + + | PLATELET | 280 | 150 - 400 K/cu | [facility] | | | COUNT | | mm | LABORATORY | | | | | | SERVICES, | | | | | | CORE | | + + + + + + | MPV | 10.2 | 9.7 - 12.3 fL | [facility] | | | | | | LABORATORY | | | | | | SERVICES, | | | | | | CORE | | + + + + + + | NRBC% | 0.0 | 0.0 - 0.3 % | [facility] | | | | | | LABORATORY | | | | | | SERVICES, | | | | | | CORE | | + + + + + + | NRBC# | 0.00 | 0.00 - 0.02 | [facility] | | | | | K/cu mm | LABORATORY | | | | | | SERVICES, | | | | | | CORE | | + + + + + + | NEUTROPHIL | 57.5 | 50.0 - 70.0 % | [facility] | | | % | | | LABORATORY | | | | | | SERVICES, | | | | | | CORE | | + + + + + + | LYMPHOCYTE | 30.7 | 18.0 - 42.0 % | [facility] | | | % | | | LABORATORY | | | | | | SERVICES, | | | | | | CORE | | + + + + + + | MONOCYTE % | 10.1 (H) | 3.5 - 9.0 % | [facility] | | | | | | LABORATORY | | | | | | SERVICES, | | | | | | CORE | | + + + + + + | EOS % | 1.2 | 1.0 - 3.0 % | [facility] | | | | | | LABORATORY | | | | | | SERVICES, | | | | | | CORE | | + + + + + + | BASO % | 0.3 | 0.0 - 2.0 % | [facility] | | | | | | LABORATORY | | | | | | SERVICES, | | | | | | CORE | | + + + + + + | IG% | 0.2Comment: Immature | 0.0 - 0.6 % | [facility] | | | | Granulocytes (IG) | | LABORATORY | | | | include metamyelocytes, | | SERVICES, | | | | myelocytes and | | CORE | | | | promyelocytes. Bands | | | | | | are not included in the | | | | | | IG count. Bands are | | | | | | included in the | | | | | | neutrophil count. | | | | + + + + + + | NEUTROPHIL | 3.31 | 1.80 - 7.70 | [facility] | | | # | | K/cu mm | LABORATORY | | | | | | SERVICES, | | | | | | CORE | | + + + + + + | LYMPHOCYTE | 1.77 | 1.00 - 4.80 | [facility] | | | # | | K/cu mm | LABORATORY | | | | | | SERVICES, | | | | | | CORE | | + + + + + + | MONOCYTE # | 0.58 | 0.10 - 0.90 | [facility] | | | | | K/cu mm | LABORATORY | | | | | | SERVICES, | | | | | | CORE | | + + + + + + | EOS # | 0.07 | 0.00 - 0.50 | [facility] | | | | | K/cu mm | LABORATORY | | | | | | SERVICES, | | | | | | CORE | | + + + + + + | BASO # | 0.02 | 0.00 - 0.10 | [facility] | | | | | K/cu mm | LABORATORY | | | | | | SERVICES, | | | | | | CORE | | + + + + + + | IG# | 0.01 | 0.00 - 0.03 | [facility] | | | | | K/cu mm | LABORATORY | | | | | | SERVICES, | | | | | | CORE | | + + + + + + + + | Specimen | + + | Blood - Blood | | (substance) | + + + + + | Narrative | Performed At | + + + | Immature Granulocytes (IG) include metamyelocytes, myelocytes | [facility] | | and promyelocytes. Bands are not included in the IG count. Bands are | LABORATORY | | included in the neutrophil count. | [facility] | + + + + + + + + | Performing | Address | City/State/Zipcode | Phone Number | | Organization | | | | + + + + + | [facility] | [address] | [place] [address] | | | [facility] | [address] | | | + + + + + COAGULOPATHY PANEL (INR,APTT,FIBRINOGEN) (04/19/2017 6:26 PM PDT) + +-------+ + + + | Component | Value | Ref Range | Performed | Pathologist | | | | | At | Signature | + +-------+ + + + | INR | 1.10 | 0.90 - 1.20 INR | [facility] | | | | | | LABORATORY | | | | | | SERVICES, | | | | | | CORE | | + +-------+ + + + | APTT | 32.1 | 26.0 - 36.0 | [facility] | | | | | seconds | LABORATORY | | | | | | SERVICES, | | | | | | CORE | | + +-------+ + + + | FIBRINOGEN | 437 | 200 - 450 mg/dL | [facility] | | | LEVEL | | | LABORATORY | | | | | | SERVICES, | | | | | | CORE | | + +-------+ + + + + + | Specimen | + + | Blood - Blood | | (substance) | + + + + + | Narrative | Performed At | + + + | INR Therapeutic ranges for full anticoagulation: INR for | [facility] | | Venous Thromboembolism (2.0 - 3.0) INR INR for | LABORATORY | | most patients with mech. valves (2.5 - 3.5) INR APTT | SERVICES, CORE | | Therapeutic Range: (75 - 120) sec | | | Heparin levels of 0.35 - 0.7 U/mL | | + + + + + + + + | Performing | Address | City/State/Zipcode | Phone Number | | Organization | | | | + + + + + | [facility] | [address] | [place] [address] | | | SERVICES, CORE | [address] | | | + + + + + COMPLETE METABOLIC SET (NA,K,CL,CO2,BUN,CREAT,GLUC,CA,AST,ALT,BILI TOTAL,ALK PHOS,ALB,PROT TOTAL) (04/19/2017 6:26 PM PDT) + +---------+ + + + | Component | Value | Ref Range | Performed | Pathologist | | | | | At | Signature | + +---------+ + + + | GLUCOSE, | 111 (H) | 70 - 99 mg/dL | [facility] | | | PLASMA | | | LABORATORY | | | (LAB) | | | SERVICES, | | | | | | CORE | | + +---------+ + + + | BUN, PLASMA | 5 (L) | 6 - 20 mg/dL | [facility] | | | (LAB) | | | LABORATORY | | | | | | SERVICES, | | | | | | CORE | | + +---------+ + + + | CREATININE | 0.80 | 0.70 - 1.30 | [facility] | | | PLASMA | | mg/dL | LABORATORY | | | (LAB) | | | SERVICES, | | | | | | CORE | | + +---------+ + + + | EGFR | >60 | >60 mL/min | [facility] | | | - | | | LABORATORY | | | AUSTRALIAN | | | SERVICES, | | | | | | CORE | | + +---------+ + + + | EGFR NON | >60 | >60 mL/min | [facility] | | | -TRINI | | | LABORATORY | | | RICAN | | | SERVICES, | | | | | | CORE | | + +---------+ + + + | SODIUM, | 138 | 136 - 145 | [facility] | | | PLASMA | | mmol/L | LABORATORY | | | (LAB) | | | SERVICES, | | | | | | CORE | | + +---------+ + + + | POTASSIUM, | 3.2 (L) | 3.4 - 5.0 | [facility] | | | PLASMA | | mmol/L | LABORATORY | | | (LAB) | | | SERVICES, | | | | | | CORE | | + +---------+ + + + | CHLORIDE, | 101 | 97 - 108 mmol/L | [facility] | | | PLASMA | | | LABORATORY | | | (LAB) | | | SERVICES, | | | | | | CORE | | + +---------+ + + + | TOTAL CO2, | 31 | 21 - 32 mmol/L | [facility] | | | PLASMA | | | LABORATORY | | | (LAB) | | | SERVICES, | | | | | | CORE | | + +---------+ + + + | CALCIUM, | 9.5 | 8.6 - 10.2 | [facility] | | | PLASMA | | mg/dL | LABORATORY | | | (LAB) | | | SERVICES, | | | | | | CORE | | + +---------+ + + + | CALCIUM(ALB | 9.3 | 8.6 - 10.2 | [facility] | | | CORRECTED) | | mg/dL | LABORATORY | | | | | | SERVICES, | | | | | | CORE | | + +---------+ + + + | BILIRUBIN | 0.5 | 0.3 - 1.2 mg/dL | [facility] | | | TOTAL | | | LABORATORY | | | | | | SERVICES, | | | | | | CORE | | + +---------+ + + + | TOTAL | 8.1 | 6.4 - 8.2 g/dL | [facility] | | | PROTEIN, | | | LABORATORY | | | PLASMA | | | SERVICES, | | | (LAB) | | | CORE | | + +---------+ + + + | ALBUMIN, | 4.3 | 3.5 - 4.7 g/dL | [facility] | | | PLASMA | | | LABORATORY | | | (LAB) | | | SERVICES, | | | | | | CORE | | + +---------+ + + + | ALK PHOS | 87 | 53 - 128 U/L | [facility] | | | | | | LABORATORY | | | | | | SERVICES, | | | | | | CORE | | + +---------+ + + + | AST(SGOT) | 20 | <=41 U/L | [facility] | | | | | | LABORATORY | | | | | | SERVICES, | | | | | | CORE | | + +---------+ + + + | ALT (SGPT) | 19 | <=60 U/L | [facility] | | | | | | LABORATORY | | | | | | SERVICES, | | | | | | CORE | | + +---------+ + + + | ANION GAP | 6 | mmol/L | [facility] | | | | | | LABORATORY | | | | | | SERVICES, | | | | | | CORE | | + +---------+ + + + | ANION | 5 | 4 - 11 mmol/L | [facility] | | | GAP(ALB | | | LABORATORY | | | CORRECTED) | | | SERVICES, | | | | | | CORE | | + +---------+ + + + | POTASSIUM | No Hemo | | [facility] | | | CMNT | | | LABORATORY | | | | | | SERVICES, | | | | | | CORE | | + +---------+ + + + | BILI T CMNT | No Hemo | | [facility] | | | | | | LABORATORY | | | | | | SERVICES, | | | | | | CORE | | + +---------+ + + + | AST CMNT | No Hemo | | [facility] | | | | | | LABORATORY | | | | | | SERVICES, | | | | | | CORE | | + +---------+ + + + + + | Specimen | + + | Blood - Blood | | (substance) | + + + + + | Narrative | Performed At | + + + | Adult glucose reference range change effective 7-12-17. GFR is | [facility] | | estimated using the MDRD equation recommended by the National Kidney | LABORATORY | | Disease Education Program. Estimated GFR Interpretive Information: | SERVICES, CORE | | <60 mL/min/1.73 sq m Chronic Kidney Disease | | | <15 mL/min/1.73 sq m Kidney Failure Estimated | | | GFR greater that 60 mL/min/1.73 sq m is of limited clinical value. | | | The MDRD equation is not valid in the following situations: - | | | Patients under 18 years of age - Severe malnutrition or obesity - | | | Vegetarian diet - Rapidly changing kidney function | | + + + + + + + + | Performing | Address | City/State/Zipcode | Phone Number | | Organization | | | | + + + + + | [facility] | [address] | [place] [address] | | | SERVICES, CORE | [address] | | | + + + + + CONFIRMATORY ABO/RH (04/19/2017 6:26 PM PDT) + + + + + + | Component | Value | Ref Range | Performed | Pathologist | | | | | At | Signature | + + + + + + | ABO Group | O | | [facility] | | | | | | LABORATORY | | | | | | SERVICES, | | | | | | TRANSFUSION | | | | | | MEDICINE | | + + + + + + | Rh Type | Positive | | [facility] | | | | | | LABORATORY | | | | | | SERVICES, | | | | | | TRANSFUSION | | | | | | MEDICINE | | + + + + + + + + | Specimen | + + | Blood - Blood | | (substance) | + + + + + + + | Performing | Address | City/State/Zipcode | Phone Number | | Organization | | | | + + + + + | [facility] | [address] | [place] [address] | | | WIL, | [address] | | | | TRANSFUSION MEDICINE | | | | + + + + + documented in this encounter Visit Diagnoses Not on filedocumented in this encounter Administered Medications + +--------+ +--------+------+------+ | Medication Order | MAR | Action | Dose | Rate | Site | | | Action | Date | | | | + +--------+ +--------+------+------+ | acetaminophen (TYLENOL) oral | Given | 04/21/20 | 325 mg | | | | suspension 325-650 mg 325-650 | | 17 10:08 | | | | | mg, oral, EVERY 4 HOURS | | PM PDT | | | | | NEEDED, Starting Wed04/21/17 at | | | | | | | 1814, Until Wed04/22/17 at 1645, | | | | | | | mild pain, multimodal pain | | | | | | | control | | | | | | + +--------+ +--------+------+------+ +---+---+ | | | +---+---+ + +-------+ +--------+---+---+ | acetaminophen (TYLENOL) tablet | Given | 04/20/20 | 650 mg | | | | 325-650 mg 325-650 mg, oral, | | 17 5:58 | | | | | EVERY 4 HOURS NEEDED, Starting | | PM PDT | | | | | 04/19/17 at 2108, Until Wed | | | | | | | 04/21/17 at 1815, mild pain, | | | | | | | multimodal pain control | | | | | | + +-------+ +--------+---+---+ +---+---+ | | | +---+---+ + +-------+ +-------+---+ + | bupivacaine-EPINEPHrine | Given | 04/21/20 | 10 mL | | Surgical | | (MARCAINE-EPINEPHRINE) 0.25 | | 17 11:18 | | | Site | | %-1:200,000 injection | | AM PDT | | | | | INTRAPROCEDURE PRN, Starting Wed | | | | | | | 04/21/17 at 1118, Until Wed | | | | | | | 04/21/17 at 1258 | | | | | | + +-------+ +-------+---+ + +---+---+ | | | +---+---+ + +-------+ +-------+---+---+ | chlorhexidine (PERIDEX) | Given | 04/22/20 | 15 mL | | | | mouthwash 15 mL 15 mL, oral, | | 17 8:38 | | | | | TWICE DAILY, First dose on Mon | | AM PDT | | | | | 04/19/17 at 2115, Until | | | | | | | Discontinued | | | | | | + +-------+ +-------+---+---+ +-------+ +-------+---+---+ | Given | 04/21/20 | 15 mL | | | | | 17 8:46 | | | | | | PM PDT | | | | +-------+ +-------+---+---+ | Given | 04/20/20 | 15 mL | | | | | 17 9:47 | | | | | | PM PDT | | | | +-------+ +-------+---+---+ +---+---+ | | | +---+---+ + +-------+ +-------+---+-------+ | chlorhexidine (PERIDEX) | Given | 04/21/20 | 10 mL | | Mouth | | mouthwash INTRAPROCEDURE PRN, | | 17 11:18 | | | | | Starting Wed04/21/17 at 1118, | | AM PDT | | | | | Until Wed04/21/17 at 1258 | | | | | | + +-------+ +-------+---+-------+ +---+---+ | | | +---+---+ + + + +---+---+---+ | lactated Ringers IV 75 mL/hr, | given by | 04/21/20 | | | | | intravenous, CONTINUOUS, Starting | | 17 1:04 | | | | | 04/19/17 at 2115, Until [facility] | anesthes | PM PDT | | | | | 04/22/17 at 1645 | iology | | | | | + + + +---+---+---+ + + + + +---+ | New Bag | 04/21/20 | | | | | | 17 11:35 | | | | | | AM PDT | | | | + + + + +---+ | Rate/Dose Verify | 04/21/20 | 75 mL/hr | 75 mL/hr | | | | 17 12:00 | | | | | | AM PDT | | | | + + + + +---+ +---+---+ | | | +---+---+ + +-------+ +--------+---+---+ | lamoTRIgine (LAMICTAL XR) ER | Given | 04/19/20 | 400 mg | | | | tablet tr24 400 mg 400 mg, oral, | | 17 7:53 | | | | | ONCE, 1 dose, 04/19/17 at | | PM PDT | | | | | 2000 | | | | | | + +-------+ +--------+---+---+ +---+---+ | | | +---+---+ + +-------+ +--------+---+---+ | lamoTRIgine (LAMICTAL) tablet | Given | 04/22/20 | 300 mg | | | | 300 mg 300 mg, oral, TWICE | | 17 8:38 | | | | | DAILY, First dose on Wed04/20/17 | | AM PDT | | | | | at 0930, Until Discontinued | | | | | | + +-------+ +--------+---+---+ +-------+ +--------+---+---+ | Given | 04/21/20 | 300 mg | | | | | 17 8:46 | | | | | | PM PDT | | | | +-------+ +--------+---+---+ | Given | 04/21/20 | 300 mg | | | | | 17 9:30 | | | | | | AM PDT | | | | +-------+ +--------+---+---+ + +---+ | | | + +---+ | ondansetron (ZOFRAN) liquid 8 | | | mg 8 mg, oral, EVERY 8 HOURS | | | NEEDED, Starting Wed04/21/17 at | | | 1815, Until Wed04/22/17 at 1645, | | | nausea/vomiting, first line | | + +---+ | | | + +---+ + +-------+ +------+---+---+ | oxyCODONE (immediate release) | Given | 04/19/20 | 5 mg | | | | (ROXICODONE) tablet 5 mg 5 mg, | | 17 6:51 | | | | | oral, EVERY 3 HOURS NEEDED, | | PM PDT | | | | | Starting Wed04/19/17 at 1848, | | | | | | | Until Wed04/19/17 at 1904, | | | | | | | moderate pain | | | | | | + +-------+ +------+---+---+ + +---+ | | | + +---+ | oxyCODONE (immediate release) | | | (ROXICODONE) tablet 1 dose, | | | Starting Wed04/19/17 at 1850, | | | Until Wed04/19/17 at 1851 | | + +---+ | | | + +---+ + +-------+ +--------+---+---+ | potassium chloride SR (K-DUR) | Given | 04/20/20 | 30 mEq | | | | tablet 30 mEq 30 mEq, oral, | | 17 9:46 | | | | | TWICE DAILY, 2 doses, First dose | | PM PDT | | | | | on Wed04/20/17 at 0900, Last dose | | | | | | | on Wed04/20/17 at 2100 | | | | | | + +-------+ +--------+---+---+ +-------+ +--------+---+---+ | Given | 04/20/20 | 30 mEq | | | | | 17 10:00 | | | | | | AM PDT | | | | +-------+ +--------+---+---+ +---+---+ | | | +---+---+ documented in this encounter
--- OUTSIDE RECORDS SUMMARY | ~2020-04-29 | XMS | Encounter Summary ---
Demographics + + + | Address | [address] | | | [place] [address] | + + + | Home Phone | | + + + | Preferred Language | Unknown | + + + | Marital Status | Single | + + + | Anabaptism Affiliation | CHR | + + + | Race | White | + + + | Ethnic Group | Not or | + + + Author + + + | Author | [facility] | + + + | Organization | [facility] | + + + | Address | Unknown | + + + | Phone | Unavailable | + + + Support + + + + + | Name | Relationship | Address | Phone | + + + + + | Mandy Willett | ECON | [address] | | | | | [place] | | | | | [address] | | + + + + + Care Team Providers + +------+ + | Care President & [employer] Name | Role | Phone | + +------+ + | Missy Gaston | PCP | | + +------+ + Reason for Visit Office Visit - E/M Services +--------+--------+ + + + + | Status | Reason | Specialty | Diagnoses / | Referred By | Referred To | | | | | Procedures | Contact | Contact | +--------+--------+ + + + + | Closed | | Oral & | | Non-[facility] | H[facility] Surg | | | | Maxillofacial | | Epic Dept | [address] | | | | Surgery | | | [address] | | | | | | | [address] | | | | | | | [place]ady | | | | | | | Research | | | | | | | [place], [address] | | | | | | | floor | | | | | | | [place], [place] | | | | | | | [address] | | | | | | | Phone: | | | | | | | [phone] | | | | | | | Fax: | | | | | | | [phone] | +--------+--------+ + + + + Encounter Details +--------+ + + + + | Date | Type | Department | Care Team | Description | +--------+ + + + + | 06/30/ | Hospital [facility] | Luigi Abarca, | No Show | | 2017 | Encounter | [facility] [address] | MD,DMD [address] | | | | | [facility] [address] | [facility] [address] | | | | | [place] [facility] | [place], [place] | | | | | [place], [facility] | [address] | | | | | [place], [place] | [phone] | | | | | [address] | | | | | | [phone] | | | +--------+ + + + [...]
--- OUTSIDE RECORDS SUMMARY | ~2020-04-29 | XMS | Encounter Summary ---
Demographics + + + | Address | [address] | | | [place] [address] | + + + | Home Phone | | + + + | Preferred Language | Unknown | + + + | Marital Status | Single | + + + | Zoroastrian Affiliation | 1013 | + + + | Race | Unknown | + + + | Ethnic Group | Unknown | + + + Author + + + | Author | [facility] | | | and Augustinana | + + + | Organization | [facility] | | | and [place] | [...] [place] | | | | | [address] | | + + + + + Care Team Providers + +------+ + | Care Sales Incentive Analyst Name | Role | Phone | + [...] Description | +--------+--------+ + + + | 06/05/ | Refill | [place] | Tessa Dominguez, | Medication Refill | | 2016 | | [facility] | MD [address] | | | | | [address] | [address] [place], | | | | | [address] | [place] [address] | | | | | [address] | [phone] | | | | | [phone] | | | +--------+--------+ + + + [...] Telephone Encounter - Ashley Chavez CMA - 06/05/2016 4:00 PM PDTWe have received a refill request for lamictalShae López was seen last on 11/06/15. He missed his last appointment on . 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
--- OUTSIDE RECORDS SUMMARY | ~2020-04-29 | XMS | Encounter Summary ---
Demographics + + + | Address | [address] | | | [place] [address] | + + + | Home Phone | | + + + | Preferred Language | Unknown | + + + | Marital Status | Single | + + + | Taoist Affiliation | 1013 | + + + | Race | Unknown | + + + | Ethnic Group | Unknown | + + + Author + + + | Author | [facility] | | | and Augustin[place] | + + + | Organization | [facility] | | | and Augustinana [...] [place] | | | | | [address] | | + + + + + Care Team Providers + +------+ + | Care Scaling Machine Operator Name | Role | Phone | + +------+ + | Missy Gaston | PCP | | + +------+ + Reason for Visit + +--------+ + | Reason | Onset | Comments | | | Date | | + +--------+ + | Seizures | 01/20/ | | | | 2014 | | + +--------+ + Encounter Details +--------+ + + + + | Date | Type | Department | Care Team | Description | +--------+ + + + + | 01/20/ | Telephone | [place] | Haresh Antonio MD | Seizures | | 2015 | | Neurology [address] | | | | | [address] | | | | | | [place] | | | | | | [address] | | | | | | [phone] | | | +--------+ + + + [...] this encounter Miscellaneous Notes Telephone Encounter - Haresh Antonio MD - 01/20/2015 8:59 PM PDTPt mother called 01/19 repor ting 2 sz lasting 1 min each. Unusual for pt. Only has a sz q 10 mos. Pt is now back to base line Instructed to take him to ER if he has another sz to look for infection or other sz trigger s. Instructed to call 911 if sz are lasting more than 3 min Advised her to call Dr Dominguez on Wednesday to see if he will need any adjustments on AEDs.El ectronically signed by Haresh Antonio MD at 01/20/2015 9:03 PM PDTdocumented in this encounte r Plan of Treatment Not on filedocumented as of this encounter Visit Diagnoses Not on filedocumented in this encounter"
--- OUTSIDE RECORDS SUMMARY | ~2020-04-29 | XMS | Encounter Summary ---
Demographics + + + | Address | [address] | | | [place] [address] | + + + | Home Phone | | + + + | Preferred Language | Unknown | + + + | Marital Status | Single | + + + | Sabianism Affiliation | 1013 | + + + | Race | Unknown | + + + | Ethnic Group | Unknown | + + + Author + + + | Author | [facility] | | | and [place] | + + + | Organization | [facility] | | | and [place] | + + + | Address | Unknown | + + + | Phone | Unavailable | + + + Support + + + + + | Name | Relationship | Address | Phone | + + + + + | Mandy Newton | ECON | [address] | | | | | [place], [place] | | | | | [address] | | + + + + + Care Team Providers + +------+ + | Care Crank Hand Name | Role | Phone | + +------+ + | Missy Gaston | PCP | | + +------+ + Reason for Visit Evaluate & Treat (Routine) +--------+--------+ + + + + | Status | Reason | Specialty | Diagnoses / | Referred By | Referred To | | | | | Procedures | Contact | Contact | +--------+--------+ + + + + | Closed | | Neurology | Diagnoses | Gaston, | Dominguez, | | | | | Seizurte | Missy | MD Tessa | | | | | disorder | [place] [address] | [address] | | | | | Procedures | [address] | [address] | | | | | Follow UP | [place] | [place] | | | | | | [address] | [address] Phone: | | | | | | Phone: | [phone] | | | | | | [phone] | Fax: | | | | | | Fax: | [phone] | | | | | | [phone] | | +--------+--------+ + + + + Encounter Details +--------+---------+ + + + | Date | Type | Department | Care Team | Description | +--------+---------+ + + + | 11/06/ | Office | [place] | Tessa Dominguez, | Generalized | | 2016 | Visit | [facility] | [address] | idiopathic epilepsy, | | | | [address] | [address] [place], | not intractable, | | | | [address] | [place] [address] | without status | | | | [address] | [phone] | epilepticus (HCC) | | | | [phone] | | (Primary Dx) | +--------+---------+ + + + [...] + + + | Blood Pressure | 120/70 | 11/06/2015 12:21 PM | | | | | PST | | + + + + + | Pulse | 54 | 11/06/2015 12:21 PM | | | | | PST [...] + + + + | Weight | 73.9 kg (163 lb) | 11/06/2015 12:21 PM | | | | | PST | | + + + + + | Height | 186 cm (6' 1.23") | 11/06/2015 12:21 PM | | | | | PST | | + + + + + | Body Mass Index | 21.37 | 11/06/2015 12:21 PM | | | | | PST | | + + + + + documented in this encounter Patient Instructions Patient Instructions Tessa Dominguez MD - 11/06/2015 12:44 PM PSTWeek 1 - Decrease 250 mg (1/2 tab) in the morning and 500 mg nightly Start Depakote ER 250 mg in the morning Week 2 - Decrease your Keppra 250 mg twice daily Increase Depakote ER 250 mg twice daily Week 3 - Decrease your Keppra to 250 mg once daily Increase your Depakote ER 250 mg in the morning 500 mg nightly Week 4 - stop the keppra Increase your Depakote ER to 500 mg twice daily and stay on this dose Lamictal stays the same throughout Week 5 - lamictal and depakote level checked at the lab. Get it drawn first thing in the m orning before your morning meds 12: 50 PM PST documented in this encounter Progress Notes Tessa Dominguez MD - 11/06/2015 12:24 PM PSTFormatting of this note might be different fro m the original. Date of service: 11/06/15 Chief complaint: Primary generalized epilepsy History of Present Illness: Rene presents for follow up evaluation regarding epilepsy. 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 His first ever seizure was a ge neralized tonoclonic seizure. He had been seizure-free for some time and then we got a call that he had a seizure on December 31, 2014. Prior to that he had been seizure-free since 2013. He was somewhat sleep deprived that day. After he had that seizure he denied any noncompliance with his anticonvulsant therapy. He does currently take Lamictal extende d release 400 mg in the morning and 500 mg nightly. He is accompanied by his cousin today rogelio howell believes he may be missing some dosages of his medications because his medication is supp osed to be refilled already and he hasn't needed to make a refill. He personally does not b jesusitae he's missed any medications. After he had a seizure in December, he was instructed to s tart Keppra. He was supposed to start 500 mg twice daily. He has been taking it but his fa janae has noticed that he has had more irritability on it. He himself has not noticed it. Petr wright have also noticed that he seems to be depressed. They also feel that he's cognitively m ore impaired on the medication. Despite starting the Keppra he is had 2 additional seizures . He had one last night in his sleep that his cousin witnessed. He believes it was a convu lsion but he saw him at the end of the seizure and he did bite his tongue. He denied any wa rning prior to the onset of the seizure. He was sleeping when it happening. The night prio r he denied any warning. They had been playing video games earlier in the day. The first t julien he had ever had a seizure it was provoked by flashing lights while he was playing a vide o game when he was still actively planning. He stated been several hours since he played a video game before he had the seizure. He also had a seizure several days ago on Wednesday. He did have one beer that day prior to him having the convulsion. He denied any injury site biting his tongue with either seizure. He denies any provoking factors. There is no misse d medications, he was not sleep deprived or stressed. He believes that the only seizure med icines he's never been tried on Lamictal and Keppra. Current Medications: Current Outpatient Prescriptions Medication Sig Dispense Refill lamoTRIgine (LAMICTAL XR) 100 MG TB24 Take 1 pill nightly by mouth. 31 tablet 12 LamoTRIgine 200 MG TB24 TAKE TWO TABLETS BY MOUTH TWICE DAILY 124 each 12 levETIRAcetam (KEPPRA) 500 mg tablet Take 1 pill twice daily 60 tablet 8 No current facility-administered medications for this visit. Allergies: No Known Allergies Vital Signs: BP 120/70 mmHg | Pulse 54 | Ht 1.86 m (6' 1.23") | Wt 73.936 kg (163 lb) | BMI 21.37 kg/m2 Physical Exam: General: well nourished patient sitting in NAD HEENT: Atraumatic, normocephalic, conjunctivae are intact, no rhinnorhea present, no gingiv al hyperplasia, Neck: neck supple, no carotid bruits, no lymphadenopathy Ext: no cyanosis or edema Neuro: MS: Alert and oriented to person, place, time. Able to name 3/3 objects after 5 erfain radha, can follow 3 step commands without [...] Assessment & Plan: Mr. Willett is a 19-year-old gentleman with a history of primary generalized epilepsy who in the ER has had some seizures when he had been well controlled for some time. He may hav e particularly triggering some of his seizures with his alcohol use and playing video games. He does have what sounds to be a photo convulsive element to his seizures. He was advised to avoid flashing lights. He is to follow seizure precautions which includes not driving, not operating heavy machinery, not working with hazardous substances, not swimming or taking baths unattended, or climbing tall heights until she's free of any seizures that result in loss of awareness for at least months. Since he is having increased irritability on the Kep pra and it's not working to control his seizures anyway, we will discontinue this medication . He will stay on his Lamictal extended release 400 mg in the morning and 500 mg nightly. In week 1 he will decrease his Keppra to 250 mg in the morning and 500 mg nightly while star ting Depakote ER. He's been having problems with mood so this should act as a mood stabiliz er. He will start Depakote ER 250 mg once daily. In week 2, he will increase his Depakote ER to 250 mg twice daily. He will decrease his Keppra to 250 mg twice daily. In week 3, he will increase his Depakote ER to 250 mg in the morning and 500 mg nightly. He will decreas e his Keppra to 250 mg once daily. In week 4 he will stop his Keppra. He will increase his Depakote ER to 500 mg twice daily and he will stay on this dose. In week 5 he will go and get his Lamictal and Depakote trough levels checked to make absolute sure he's within therap eutic range. Our plan is to ultimately if where able to if he remains seizure-free, transit ion him from Lamictal to Depakote in monotherapy. He continues to have seizures we will the n keep him on both medications in combination therapy if it works to control his seizures. He was advised to watch for rash and also to pay attention to whether or not he is becoming off balance or having double vision with him transitioning on the Depakote since it can some times interfere with the metabolism of his Lamictal. Also we will see you once he is off th e Keppra if his cognition improves. In may be the combination of medications that causing misael im to be cognitively dull. If he continues to have seizures despite adding the Depakote ont o his Lamictal, we will then most likely send him for a new MRI imaging to make absolute candida e there is no new structural or functional abnormality that could explain why he's having in creased frequency of seizures as well as possible continuous EEG monitoring. More than 40 minutes was spent with the patient and over half this time spent counseling hi m regarding his epilepsy.(12:30-1:16 pm). This report was transcribed using voice recognition software. Every effort was made to ensu re accuracy; however, inadvertent computerized warehouser errors may be present. Updated Medications: Current Outpatient Prescriptions Medication Sig Dispense Refill divalproex (DEPAKOTE ER) 250 mg 24 hr tablet Week 1 - Take 1 tablet by mouth daily, Wee k 2-Take 1 tab twice daily, Week 3 - Take 1 tab in the morning and 2 tabs nightly, Week 4 - Take 2 tabs twice daily and stay at this dose 120 tablet 11 lamoTRIgine (LAMICTAL XR) 100 MG TB24 Take 1 pill nightly by mouth. 31 tablet 12 LamoTRIgine 200 MG TB24 TAKE TWO TABLETS BY MOUTH TWICE DAILY 124 each 12 levETIRAcetam (KEPPRA) 500 mg tablet Take 1 pill twice daily 60 tablet 8 No current facility-administered medications for this visit. Review of Systems Pertinent positives include. General: Negative for marked weight change, night sweats, easy fatigue and persistent fever . Cardiovascular: Negative for chest pain, HTN, irregular heart and swelling in the ankles ENT: Negative for loss of hearing, ringing in the ears, sinus problems,swollen gums and tro uble swallowing Endocrine: Negative for excessive thirst and heat/cold intolerance Eyes: Negative for double vision, loss of vision and eye inflammation or pain. Gastrointestinal: Negative for abdominal pain, constipation, diarrhea, nausea, heartburn/ i ndigestion and bloody or blood in stool. Genitourinary: Negative for painful urination, decreased force /flow, blood in the urine, e xcessive urination, urinary incontinence, impotence. Hematologic / Lymphatic: Negative for easy bruising and swollen glands. Musculoskeletal: Negative for back pain, joint pain, muscle weakness, swollen joints and st iffness. Neurological: Negative for numbness and tingling , dizziness / vertigo, headaches, tremors, loss of consciousness, memory loss and change in speech and trouble w/ sleep. Psychiatric/Behavioral: Negative for depression, anxiety and hallucinations. Respiratory: Negative for shortness of breath, persistent cough, wheezing and bloody sputum . Skin: Negative for change in moles and rash. Allergic / Immunologic: Negative for seasonal allergies and medication allergies. documented in this en counter Plan of Treatment + +------+--------+ + + | Name | Type | Priori | Associated Diagnoses | Order Schedule | | | | ty | | | + +------+--------+ + + | Valproic Acid Level | Lab | Routin | Generalized | 1 Occurrences | | | | e | idiopathic epilepsy, | starting 11/06/2015 | | | | | not intractable, | until 11/06/2016 | | | | | without status | | | | | | epilepticus (HCC) | | + +------+--------+ + + | Lamotrigine Level | Lab | Routin | Generalized | 1 Occurrences | | | | e | idiopathic epilepsy, | starting 11/06/2015 | | | | | not intractable, | until 11/06/2016 | | | | | without status | | | | | | epilepticus (HCC) | | + +------+--------+ + + documented as of this encounter Procedures + +--------+ + + + | Procedure Name | Priori | Date/Time | Associated Diagnosis | Comments | | | ty | | | | + +--------+ + + + | IMAGING REPORT - | | 11/24/2015 | | Results for this | | EXTERNAL SCAN | | 12:00 AM | | procedure are in the | | | | PST | | results section. | + +--------+ + + + | IMAGING REPORT - | | 11/24/2015 | | Results for this | | EXTERNAL SCAN | | 12:00 AM | | procedure are in the | | | | PST | | results section. | + +--------+ + + + | LABS - EXTERNAL SCAN | | 11/24/2015 | | Results for this | | | | 12:00 AM | | procedure are in the | | | | PST | | results section. | + +--------+ + + + | ECG - EXTERNAL SCAN | | 11/24/2015 | | Results for this | | | | 12:00 AM | | procedure are in the | | | | PST | | results section. | + +--------+ + + + documented in this encounter Results LABS - EXTERNAL SCAN (11/24/2015 12:00 AM PST) + + + | Narrative | Performed At | + + + | Ordered by an | | | unspecified provider. | | + + + IMAGING REPORT - EXTERNAL SCAN (11/24/2015 12:00 AM PST) + + + | Narrative | Performed At | + + + | Ordered by an | | | unspecified provider. | | + + + IMAGING REPORT - EXTERNAL SCAN (11/24/2015 12:00 AM PST) + + + | Narrative | Performed At | + + + | Ordered by an | | | unspecified provider. | | + + + ECG - EXTERNAL SCAN (11/24/2015 12:00 AM PST) + + + | Narrative | Performed At | + + + | Ordered by an | | | unspecified provider. | | + + + documented in this encounter Visit Diagnoses + + | Diagnosis | + + | Generalized idiopathic epilepsy, not intractable, without status epilepticus (HCC) - | | Primary | + + documented in this encounter
--- OUTSIDE RECORDS SUMMARY | ~2020-04-29 | XMS | Encounter Summary ---
Demographics + + + | Address | [address] | | | [place] [address] | + + + | Home Phone [...] + + + | Author | [facility] | | | and Augustinana | + + + | Organization | [facility] | | | and Augustinana [...] [place] | | | | | [address] | | + + + + + Care Team Providers + +------+ + | Care Cardiac Technician Name | Role | Phone | + +------+ + | Missy Gaston | PCP | | + +------+ + Reason for Visit + +--------+ + | Reason | Onset | Comments | | | Date | | + +--------+ + | Seizures | 04/29/ | | | | 2016 | | + +--------+ + Encounter Details +--------+ + + + + | Date | Type | Department | Care Team | Description | +--------+ + + + + | 04/29/ | Telephone | [place] | Tessa Dominguez, | Seizures | | 2017 | | [facility] | MD [address] | | | | | [address] | [address] [place], | | | | | [address] | [place] [address] | | | | | [address] | [phone] | | | | | [phone] | | | +--------+ + + + [...] this encounter Miscellaneous Notes Telephone Encounter - Tessa Dominguez MD - 04/29/2017 12:03 PM PDTThanks Dana anderson signed by Tessa Dominguez MD at 04/29/2017 12:03 PM PDTTelephone Encounter - Marley Chopra RN - 04/29/2017 11:[address] Dominguez and we are going to kaleb ck a trough level first. I called and explained this to mom. Lab order faxed to his PCP office, Dr. Gaston. elephone Encoun ter - Marley Chopra RN - 04/29/2017 10:56 AM PDTI looked through his chart and didn' t see that he has tried Vimpat. I called and verified this with mom and Rene. I gave them the instructions to start. RX is mickey'd up for you to sign. 17 10:58 AM PDTTelephone Encounter - Tessa Dominguez MD - 04/29/2017 10:48 AM PDTHi Taurus sena, Can you see if Rene has ever been on vimpat before. If not, let's start this in additio n to his lamictal. He should start 50 mg BID and after 1 week if tolerating it go up to 100 mg BID and stay on this dose unless continued seizures. Can you please set up the Rx.Elect ronically signed by Tessa Dominguez MD at 04/29/2017 10:49 AM PDTTelephone Encounter - Ginger Lagos CMA - 04/29/2017 9:35 AM PDTCody has had 3 seizures in the past 4 days. He has a broken jaw and his mouth is wired shut, during the seizures he is breaking the bands holdi ng is jaw together. The only contributing factor is that he is on a liquid diet so she isn't sure he is getting good nutrients. There is no missed meds, he should be well hydrates and isn't getting over heated. Rene is currently on lamotrigine 300 mg bid, he never got the prescription for the Midazolam. 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
--- OUTSIDE RECORDS SUMMARY | ~2020-04-29 | XMS | Encounter Summary ---
Demographics + + + | Address | [address] | | | [place] [address] | + + + | Home Phone | | + + + | Preferred Language | Unknown | + + + | Marital Status | Single | + + + | Oriental Orthodox Affiliation | CHR | + + + | Race | White | + + + | Ethnic Group | Not or | + + + Author + + + | Author | [facility] | + + + | Organization | [facility] | + + + | Address | Unknown | + + + | Phone | Unavailable | + + + Support + + + + + | Name | Relationship | Address | Phone | + + + + + | Mandy Willett | ECON | [address] | | | | | [place] | | | | | [address] | | + + + + + Care Team Providers + +------+ + | Care Business Writer Name | Role | Phone | + [...] PLACEMENT; REDUCTION | | | | Rd [facility] | [address] | OF RIGHT CONDYLAR | | | | Hospital Admitting | [place], [place] | AND LEFT MANDIBULAR | | | | Desk Located on the | [id number] | FRACTURES | | | | 9th floor | [phone] | | | | | [place], [place] | | | | | | [address] | | | +--------+---------+ + + + [...] DMD, MD - 04/21/2017 7:54 AM PDT [facility] Discharge Summary Discharging Provider: Alisha Devine MD, [...] bar placement Hospital Course: Patient presented to [facility] ED on 04/19/17. 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 It [...] evening or on the weekend. Call the spray painter fire prevention specialist at for any of the f ollowing [...] Phone Center 05/12/2017 9:00 AM Luigi Abarca [facility] at [facility] [phone] [facility] Schedule the following appointment(s) when you get home Follow up with LUIGI ABARCA MD,DMD In 2 weeks. Specialty: Oral & Maxillofacial Surgery Why: Fracture check Contact information [address] [facility] [address] Discharge Physical Exam: Last [...] DMD, MD - 04/22/2017 7:18 AM PDT lime kiln and recausticizing operator Service Daily Inpatient Progress Note Attending Physician: [...] 19.11 kg/(m^2) Vitals trends reviewed independently in the medical center I/Os reviewed independently in the medical center LABS Reviewed independently in the medical center BMP pending IMAGING Radiographic Imaging Type(s): CT [...] MD - 04/21/2017 7:44 AM PDT . lime kiln and recausticizing operator Service Daily Inpatient Progress Note Attending Physician: [...] 19.11 kg/(m^2) Vitals trends reviewed independently in the medical center I/Os reviewed independently in the medical center LABS Reviewed independently in the medical center BMP pending IMAGING Radiographic Imaging Type(s): CT [...] fractures today in [place] Alisha Devine DMD lime kiln and recausticizing operator This patient's working diagnosis and treatment considerations were discussed and formulated in coordination with the resident team and attending staff. Alisha Diop DMD, MD - 04/20/2017 8:04 AM PDT . lime kiln and recausticizing operator Service Daily Inpatient Progress Note Attending Physician: [...] independently in epic I/Os reviewed independently in [facility] LABS Reviewed independently in [facility] K 3.2 IMAGING Radiographic Imaging Type(s): CT [...] fractures today in [place] Alisha Devine DMD lime kiln and recausticizing operator This patient's working diagnosis and treatment considerations [...] seizure on 04/11/17. He subsequently presented to [facility] for further | | | management on [...] | | MD BAILEY PGY - 4 [id number] I was present for the entire procedure [...] | | | LABORATORY | | | GABONESE | | | SERVICES, | | | [...] | + + + + + | [facility] | [address] | [place] [address] | | | SERVICES, CORE | PARK [...] [facility] | [address] | [place] [address] | | | SERVICES, CORE | PARK [...] | | | LABORATORY | | | GABONESE | | | SERVICES, | | | [...] | + + + + + | [facility] [email or web address] | [address] | [place] [address] | | | SERVICES, CORE | PARK [...] [facility] | [address] | [place] [address] | | | SERVICES, | [address] [...] [facility] | [address] | [place] [address] | | | SERVICES, | [address] [...] [facility] | [address] | [place] [address] | | | [place] [...] | + + + + + | [facility] | [address] | [place] [address] | | | SERVICES, CORE | FERNANDEZ [...] | | | LABORATORY | | | GABONESE | | | SERVICES, | | | [...] | + + + + + | [facility] | [address] | [place] [address] | | | SERVICES, CORE | PARK [...] | + + + + + | [facility] | [address] | [place] [address] | | | WIL, | FERNANDEZ HENAO [...]
--- OUTSIDE RECORDS SUMMARY | ~2020-04-29 | XMS | Encounter Summary ---
Demographics + + + | Address | [address] | | | [place] [address] | + + + | Home Phone | | + + + | Preferred Language | Unknown | + + + | Marital Status | Single | + + + | Judaism Affiliation | 1013 | + + + | Race | Unknown | + + + | Ethnic Group | Unknown | + + + Author + + + | Author | [facility] | | | and [place] | + + + | Organization | [facility] | | | and August[place]ana [...] [place] | | | | | [address] | | + + + + + Care Team Providers + +------+ + | Care Spinning Mule Operator Name | Role | Phone | [...] Description | +--------+--------+ + + + | 05/31/ | Refill | [place] | Tessa Dominguez, | Medication Refill | | 2013 | | [facility] | MD [address] | | | | | [address] | [address] [place], | | | | | [address] | [place] [address] | | | | | [address] | [phone] | | | | | [phone] | | | +--------+--------+ + + + [...] Telephone Encounter - Ashley Chavez CMA - 05/31/2014 4:36 PM PDTWe have received a refill request for lamictal xrShae López's next appt is on 07/23/14. 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
--- OUTSIDE RECORDS SUMMARY | ~2020-04-29 | XMS | Encounter Summary ---
Demographics + + + | Address | [address] | | | [place] [address] | + + + | Home Phone | | + + + | Preferred Language | Unknown | + + + | Marital Status | Single | + + + | Yazidism Affiliation | 1013 | + + + | Race | Unknown | + + + | Ethnic Group | Unknown | + + + Author + + + | Author | [facility] | | | and [place] | + + + | Organization | [facility] | | | and [place] | [...] [place] | | | | | [address] | | + + + + + Care Team Providers + +------+ + | Care Tile Grinder Name | Role | Phone | + [...] Description | +--------+--------+ + + + | 12/23/ | Refill | [place] | Tessa Dominguez, | Medication Refill | | 2017 | | [facility] | MD [address] | | | | | [address] | [address] [place], | | | | | [address] | [place] [address] | | | | | [address] | [phone] | | | | | [phone] | | | +--------+--------+ + + + [...] encounter Miscellaneous Notes Telephone Encounter - Av [place]vez, [facility] - 12/23/2016 4:31 PM PDTThe pharmacy called [facility] came in stating that he has only been taking 300 mg bid and that they have no t filled for him in 3 months. When they did fill it, it was only for a months supply. According to the pharmacy even if he was taking a lower dose he should have still ran out a lot sooner. The pharmacist is concerned because he has a history of stopping and then starting where he left off, which put him in the hospital last time. : [phone] [id number] signed by Av Galvez CMA at 2016 8:16 AM PDTTelephone Encounter - Ashley Chavez CMA - 12/23/2016 4:13 PM Drew owen eceived a refill request for lamictal XR 200mg. Rene's next appointment is on 01/25/17.Elec tronically signed by Ashley Chavez CMA at 12/23/2016 4:14 PM PDTdocumented in this encounte r Plan of Treatment Not on filedocumented as of this encounter Visit Diagnoses + + | Diagnosis | + + | Generalized nonconvulsive epilepsy (HCC) - Primary Generalized nonconvulsive epilepsy | | without mention of intractable epilepsy | + + documented in this encounter"
--- OUTSIDE RECORDS SUMMARY | ~2020-04-29 | XMS | Encounter Summary ---
Demographics + + + | Address | [address] | | | [place] [address] | + + + | Home Phone | | + + + | Preferred Language | Unknown | + + + | Marital Status | Single | + + + | Hindu Affiliation | 1013 | + + + | Race | Unknown | + + + | Ethnic Group | Unknown | + + + Author + + + | Author | and [facility] | | | and [place] | + + + | Organization | and [facility] | | | and [place] | [...] [place] | | | | | [address] | | + + + + + Care Team Providers + +------+ + | Care Merchant Police Name | Role | Phone | + +------+ + | No, Physician | PCP | Unavailable | + +------+ + Reason for Visit + + + | Reason | Comments | + + + | Seizure (Adult - | | | Prior Hx Of) | | + + + Encounter Details +--------+ + + + + | Date | Type | Department | Care Team | Description | +--------+ + + + + | 10/28/ | Emergency | [facility] | Angel Lowe, | Seizure (HCC) | | 2019 | | [facility] | MD [address] | (Primary Dx) | | | | CENTER [address] | [place], [place] | | | | | [address] | [phone] | | | | | [place], [place] | | | | | | [address] | | | | | | [phone] | | | +--------+ + + + [...] + + + | Blood Pressure | 134/96 | 10/28/2018 1:38 PM | | | | | PST | | + + + + + | Pulse | 100 | 10/28/2018 1:38 PM | | | | | PST | | + + + + + | Temperature | 36.2 C (97.1 F) | 10/28/2018 9:54 AM | | | | | PST | | + + + + + | Respiratory Rate | 17 | 10/28/2018 1:38 PM | | | | | PST | | + + + + + | Oxygen Saturation | 99% | 10/28/2018 1:38 PM | | | | | PST | | + + + + + | Inhaled Oxygen | - | - | | | Concentration | | | | + + + + + | Weight | 71.2 kg (157 lb) | 10/28/2018 9:54 AM | | | | | PST | | + + + + + | Height | 185.4 cm (6' 1") | 10/28/2018 9:54 AM | | | | | PST | | + + + + + | Body Mass Index | 20.71 | 10/28/2018 9:54 AM | | | | | PST | | + + + + + documented in this encounter Discharge Instructions Instructions Angel Lowe MD - 10/28/2018Rest, fluids, close observation Return if seizure, fever, vomiting, any other problems Recheck your Keppra level. Elevated blood pressure reading in the emergency department. Rechecked by primary care next visit Hypertension can be harmful. AttachmentsThe following attachments cannot be sent through Care Everywhere.Seizure, Recurr ent (Adult) (Slovak)documented in this encounter Medications at Time of Discharge + + + +---------+ + + | Medication | Sig | Dispensed | Refills | Start | End Date | | | | | | Date | | + + + +---------+ + + | lamoTRIgine | TAKE 2 TABS BY MOUTH | 120 | 11 | 02/02/20 | | | (LAMICTAL) 150 MG | TWICE DAILY | tablet | | 18 | | | tablet | | | | | | + + + +---------+ + + | midazolam (VERSED) | Dispense 10mg | 2.1 mL | 2 | 11/06/19 | | | 5 mg/mL | intranasally | | | 16 | | | injectionIndications | (5mg/1ml in each | | | | | | : Generalized | nostril) with MAD | | | | | | nonconvulsive | device as needed for | | | | | | epilepsy (HCC) | a seizure lasting | | | | | | | longer than 5 | | | | | | | minutes or two | | | | | | | occurring back to | | | | | | | back without | | | | | | | recovery in between. | | | | | + + + +---------+ + + documented as of this encounter ED Notes Angel Lowe MD - 10/28/2018 2:48 PM PSTFormatting of this note might be different fr om the original. CHIEF COMPLAINT Chief Complaint Patient presents with Seizure (Adult - Prior Hx Of) HPI Rene Willett is a 22 y.o. male who presents after a seizure. Patient states he has a long history of seizures. The patient takes Keppra. He states he has approximately o ne seizure a month. His neurologist is Dr. Tessa Dominguez. He states he thinks today's sei zure was secondary to he was getting upset and stressed out. He states he's had no recent h ead injury. He's had no recent alcohol use. 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 He is at a detox facility. He states he has no pain in his head n lorelei chest back or abdomen. He is having no other complaints. He states this is how he usua lly feels. REVIEW OF SYSTEMS See HPI for further details. 10 systems were reviewed and are otherwise negative. Except i s mentioned in HPI PAST MEDICAL HISTORY No past medical history on file. FAMILY HISTORY No family history on file. SOCIAL HISTORY Social History Social History Marital status: Single Spouse name: N/A Number of children: N/A Years of education: N/A Social History Main Topics Smoking status: Never Smoker Smokeless tobacco: Never Used Alcohol use No Drug use: No Sexual activity: No Other Topics Concern Not on file Social History Narrative No narrative on file SURGICAL HISTORY No past surgical history on file. CURRENT MEDICATIONS Previous Medications LAMOTRIGINE (LAMICTAL) 150 MG TABLET TAKE 2 TABS BY MOUTH TWICE DAILY MIDAZOLAM (VERSED) 5 MG/ML INJECTION Dispense 10mg intranasally (5mg/1ml in each nostri l) with MAD device as needed for a seizure lasting longer than 5 minutes or two occurring ba ck to back without recovery in between. ALLERGIES Allergies Allergen Reactions Penicillins Other (See Comments) Possible allergy PHYSICAL EXAM VITAL SIGNS: ED Triage Vitals [10/28/18 0954] Enc Vitals Group BP (!) 139/91 Pulse 124 Resp 18 Temp 36.2 C (97.1 F) Temp Source Oral SpO2 94 % Weight 71.2 kg (157 lb) Height 1.854 m (6' 1") Head Circumference Peak Flow Pain Score Pain Loc Pain Edu? Excl. in GC? Constitutional: Well developed, Well nourished, No acute distress, Non-toxic appearance. HENT: Normocephalic, Atraumatic, Bilateral external ears normal, Oropharynx moist, No oral exudates, Nose normal. Eyes: PERRLA, EOMI, Conjunctiva normal, No discharge. Neck: Normal range of motion, No tenderness, Supple, No stridor. Lymphatic: No lymphadenopathy noted. Cardiovascular: Normal heart rate, Normal rhythm, No murmurs, No rubs, No gallops. Thorax & Lungs: Normal breath sounds, No respiratory distress, No wheezing, No chest tender ness. Abdomen: Bowel sounds normal, Soft, No tenderness, No masses, No pulsatile masses. Skin: Warm, Dry, No erythema, No rash. Back: No tenderness, No CVA tenderness. Genitalia: Rectal: Extremities: Intact distal pulses, No edema, No tenderness, No cyanosis, No clubbing. Musculoskeletal: Good range of motion in all major joints. No tenderness to palpation or ma guillaume deformities noted. Neurologic: Alert & oriented x 3, Normal motor function, Normal sensory function, No focal deficits noted. Psychiatric: Affect normal, Judgment normal, Mood normal. EKG RADIOLOGY PROCEDURES LABS Labs Reviewed CBC WITH DIFFERENTIAL - Abnormal; Notable for the following: Result Value WBC 15.0 (*) RBC 5.77 (*) % Neutrophils 81.2 (*) % Lymphocytes 10.1 (*) Absolute Neutrophils 12.20 (*) Absolute Monocytes 0.88 (*) All other components within normal limits COMPREHENSIVE METABOLIC PANEL - Abnormal; Notable for the following: Total Protein 8.8 (*) Alkaline Phosphatase 117 (*) All other components within normal limits LAMOTRIGINE LEVEL COURSE & MEDICAL DECISION MAKING Pertinent Labs & Imaging studies reviewed. (See chart for details) Chart reviewed Nursing notes reviewed The patient is nontoxic appearing is in no acute distress. Patient states he doesn't remem felipe the events of the seizure other than that he states he remembers waking up in the ambula nce. Patient once again states he has a long history of seizures. He states he has been ta jaime his Keppra. Patient has been in the emergency department for approximately 3-4 hours. He is having no seizure activity. He states he feels completely normal he wants to be discharged. He is ad vised to follow-up with Dr. Dominguez to check his Keppra level. He is advised to return if he has any more seizures or any other problems. Patient is in good condition on discharge u nderstand instructions declined any further treatment observation or testing. FINAL IMPRESSION 1. Seizure (HCC) Angel Lowe MD 10/28/18 1454 Nayla Mendez RN - 10/28/2018 10:03 AM PSTComes from detox center (for meth use) for seizure. Hx of epilepsy . A/O in triage. Lore mented in this encounter Plan of Treatment Not on filedocumented as of this encounter Procedures + +--------+ + + + | Procedure Name | Priori | Date/Time | Associated Diagnosis | Comments | | | ty | | | | + +--------+ + + + | LAMOTRIGINE LEVEL | STAT | 10/28/2018 | | Results for this | | | | 12:26 PM | | procedure are in the | | | | PST | | results section. | + +--------+ + + + | CBC WITH | STAT | 10/28/2018 | | Results for this | | DIFFERENTIAL | | 12:26 PM | | procedure are in the | | | | PST | | results section. | + +--------+ + + + | COMPREHENSIVE | STAT | 10/28/2018 | | Results for this | | METABOLIC PANEL | | 12:26 PM | | procedure are in the | | | | PST | | results section. | + +--------+ + + + documented in this encounter Results Lamotrigine Level (10/28/2018 12:26 PM PST) + + + + + + | Component | Value | Ref Range | Performed | Pathologist | | | | | At | Signature | + + + + + + | LAMOTRIGINE | Test Not | | [facility] | | | LVL | PerformedComment: This | | [facility] | | | | sample was rejected for | | LABORATORY | | | | analysis due to | | [facility] | | | | specimensubmission in a | | | | | | gel barrier tube. The | | | | | | use of serumseparator | | | | | | tubes is not recommended | | | | | | due to slow | | | | | | absorptionof the drug by | | | | | | the gel, and this | | | | | | decrease in drug level | | | | | | dueto absorption may be | | | | | | clinically significant. | | | | | | Please submitspecimens | | | | | | for TDM studies in | | | | | | red-stopper tubes.This | | | | | | test was developed and | | | | | | its performance | | | | | | characteristicsdetermine | | | | | | d by [facility]. It has not | | | | | | been cleared orapproved | | | | | | by the Food and Drug | | | | | | Administration. | | | | | | | | | | | | Detection | | | | | | Limit = 1.0Performed | | | | | | At: [facility] | | | | | | [id number] | | | | | | [place] | | | | | | [phone] | | | | | | [phone] | | | | + + + + + + + + | Specimen | + + | Blood specimen | | (specimen) | + + + + + + + | Performing | Address | City/State/Zipcode | Phone Number | | Organization | | | | + + + + + | [facility] | [address] [facility] | [place] [address] | | | [facility] | | | | | [place] | | | | + + + + + Comprehensive Metabolic Panel (10/28/2018 12:26 PM PST) + + + + + + | Component | Value | Ref Range | Performed | Pathologist | | | | | At | Signature | + + + + + + | Na | 138 | 135 - 146 | [facility] | | | | | mmol/L | [facility] | | | | | | [facility] | | | | | | [facility] | | + + + + + + | K | 4.2 | 3.6 - 5.2 | [facility] | | | | | mmol/L | [facility] | | | | | | [facility] | | | | | | [facility] | | + + + + + + | Cl | 102 | 98 - 109 mmol/L | [facility] | | | | | | [facility] | | | | | | [facility] | | | | | | [place] | | + + + + + + | CO2 | 30 | 21 - 32 mmol/L | [facility] | | | | | | [facility] | | | | | | [facility] | | | | | | [place] | | + + + + + + | Calcium | 9.7 | 8.5 - 10.2 | [facility] | | | | | mg/dL | [facility] | | | | | | [facility] | | | | | | [facility] | | + + + + + + | Anion Gap | 6 | 5 - 16 mmol/L | [facility] | | | | | | [facility] | | | | | | [facility] | | | | | | [facility] | | + + + + + + | Albumin | 4.8 | 3.5 - 5.0 g/dL | [facility] | | | | | | [facility] | | | | | | [facility] | | | | | | [facility] | | + + + + + + | BUN | 10 | 7 - 23 mg/dL | [facility] | | | | | | [facility] | | | | | | [facility] | | | | | | [place] | | + + + + + + | Creatinine | 0.63 | 0.50 - 1.30 | [facility] | | | | | mg/dL | [facility] | | | | | | LABORATORY | | | | | | [place] | | + + + + + + | Glucose | 99 | 65 - 99 mg/dL | [facility] | | | | | | [facility] | | | | | | LAB[facility] | | | | | | [place] | | + + + + + + | Total | 8.8 (H) | 6.3 - 8.0 g/dL | [facility] | | | Protein | | | [facility] | | | | | | LAB[facility] | | | | | | [facility] | | + + + + + + | Alkaline | 117 (H) | 35 - 115 U/L | [facility] | | | Phosphatase | | | [facility] | | | | | | LAB[facility]ATORY | | | | | | [facility] | | + + + + + + | ALT | 28 | 10 - 65 U/L | [facility] | | | | | | [facility] | | | | | | [facility] | | | | | | [facility] | | + + + + + + | AST | 22 | 5 - 40 U/L | [facility] | | | | | | [facility] | | | | | | [facility] | | | | | | [place] | | + + + + + + | Bilirubin | 0.2 | 0.1 - 1.5 mg/dL | [facility] | | | Total | | | [facility] | | | | | | LAB[facility] | | | | | | [facility] | | + + + + + + | Estimated | 139Comment: eGFR<60 | >=90 | [facility] | | | GFR | consistent with impaired | mL/min/1.73m2 | [facility] | | | | kidney | | LABORATORY | | | | function.Performed by | | [facility] | | | | [facility] [address] | | | | | | [place] [address] | | | | + + + + + + + + | Specimen | + + | Blood specimen | | (specimen) | + + + + + + + | Performing | Address | City/State/Zipcode | Phone Number | | Organization | | | | + + + + + | [facility] | [address] [facility] | [place] [address] | | | [facility] | | | | | [place] | | | | + + + + + CBC with Differential (10/28/2018 12:26 PM PST) + + + + + + | Component | Value | Ref Range | Performed | Pathologist | | | | | At | Signature | + + + + + + | White Blood | 15.0 (H) | 3.8 - 11.0 K/uL | [facility] | | | Cells | | | [facility] | | | | | | LAB[facility]ATORY | | | | | | [place] | | + + + + + + | Red Blood | 5.77 (H) | 4.20 - 5.70 | [facility] | | | Cells | | M/uL | [facility] | | | | | | LABORATORY | | | | | | [facility] | | + + + + + + | Hemoglobin | 16.5 | 13.2 - 17.0 | [facility] | | | | | g/dL | [facility] | | | | | | LABORATORY | | | | | | [place] | | + + + + + + | Hct | 49.5 | 39.0 - 50.0 % | [facility] | | | | | | [facility] | | | | | | LABORAT[facility] | | | | | | [place] | | + + + + + + | MCV | 85.8 | 80.0 - 100.0 fL | [facility] | | | | | | [facility] | | | | | | LAB[facility] | | | | | | [facility] | | + + + + + + | MCH | 28.5 | 27.0 - 34.0 pg | [facility] | | | | | | [facility] | | | | | | LABORATORY | | | | | | [place] | | + + + + + + | MCHC | 33.3 | 32.0 - 35.5 | [facility] | | | | | g/dL | [facility] | | | | | | LAB[facility]AT[facility] | | | | | | [place] | | + + + + + + | RDW-CV | 12.7 | 11.0 - 15.5 % | [facility] | | | | | | [facility] | | | | | | LAB[facility]AT[facility] | | | | | | [place] | | + + + + + + | Platelet | 319 | 150 - 400 K/uL | [facility] | | | Count | | | [facility] | | | | | | LAB[facility]AT[facility] | | | | | | [place] | | + + + + + + | MPV | 8.1 | 7.5 - 11.2 fL | [facility] | | | | | | [facility] | | | | | | LAB[facility] | | | | | | [place] | | + + + + + + | % | 81.2 (H) | 40.0 - 75.0 % | [facility] | | | Neutrophils | | | [facility] | | | | | | LABORATORY | | | | | | [place] | | + + + + + + | % | 10.1 (L) | 15.0 - 48.0 % | [facility] | | | Lymphocytes | | | [facility] | | | | | | LABORATORY | | | | | | [place] | | + + + + + + | % Monocytes | 5.9 | 0.0 - 12.0 % | [facility] | | | | | | [facility] | | | | | | LABORATORY | | | | | | [place] | | + + + + + + | % | 2.3 | 0.0 - 7.0 % | [facility] | | | Eosinophils | | | [facility] | | | | | | LAB[facility]ATORY | | | | | | [place] | | + + + + + + | % Basophils | 0.5 | 0.0 - 2.0 % | [facility] | | | | | | [facility] | | | | | | LABORATORY | | | | | | [place] | | + + + + + + | Absolute | 12.20 (H) | 1.90 - 7.40 | [facility] | | | Neutrophils | | K/uL | [facility] | | | | | | LABORATORY | | | | | | [facility] | | + + + + + + | Absolute | 1.52 | 1.00 - 3.90 | [facility] | | | Lymphocytes | | K/uL | [facility] | | | | | | LABORATORY | | | | | | [place] | | + + + + + + | Absolute | 0.88 (H) | 0.00 - 0.80 | [facility] | | | Monocytes | | K/uL | [facility] | | | | | | LABORATORY | | | | | | [facility] | | + + + + + + | Absolute | 0.34 | 0.00 - 0.50 | [facility] | | | Eosinophils | | K/uL | [facility] | | | | | | LABORATORY | | | | | | [place] | | + + + + + + | Absolute | 0.08 | 0.00 - 0.10 | [facility] | | | Basophils | | K/uL | [facility] | | | | | | LAB[facility]ORY | | | | | | [facility] | | + + + + + + | % nRBC | 0Comment: Performed by | /100 WBC | [facility] | | | | [facility] [address] | | [facility] | | | | [place] [address] | | LABORATORY | | | |Performed by [facility] [address] [place] [address] | | [facility] | | | | | | | | + + + + + + + + | Specimen | + + | Blood specimen | | (specimen) | + + + + + + + | Performing | Address | City/State/Zipcode | Phone Number | | Organization | | | | + + + + + | [facility] | [address] [facility] | [place] [address] | | | [facility] | | | | | [place] | | | | + + + + + documented in this encounter Visit Diagnoses + + | Diagnosis | + + | Seizure (HCC) - Primary Other convulsions | + + documented in this encounter Administered Medications + +--------+ +--------+------+------+ | Medication Order | MAR | Action | Dose | Rate | Site | | | Action | Date | | | | + +--------+ +--------+------+------+ | ibuprofen (ADVIL,MOTRIN) tablet | Given | 10/28/19 | 600 mg | | | | 600 mg 600 mg, Oral, ONCE, Fri | | 19 3:20 | | | | | 10/28/18 at 1520, For 1 dose, Give | | PM PST | | | | | with food., | | | | | | + +--------+ +--------+------+------+ +---+---+ | | | +---+---+ + +-------+ +--------+---+---+ | LORazepam (ATIVAN) injection | Given | 10/28/19 | 0.5 mg | | | | 0.5 mg 0.5 mg, Intravenous, | | 19 12:33 | | | | | ONCE, 10/28/18 at 1225, For 1 | | PM PST | | | | | dose | | | | | | + +-------+ +--------+---+---+ +---+---+ | | | +---+---+ documented in this encounter
--- OUTSIDE RECORDS SUMMARY | ~2020-04-29 | XMS | Encounter Summary ---
Demographics + + + | Address | [address] | | | [place] [address] | + + + | Home Phone | | + + + | Preferred Language | Unknown | + + + | Marital Status | Single | + + + | Christian Affiliation | 1013 | + + + | Race | Unknown | + + + | Ethnic Group | Unknown | + + + Author + + + | Author | [facility] | | | and [place] | + + + | Organization | [facility] | | | [...] [place] | | | | | [address] | | + + + + + Care Team Providers + +------+ + | Care [place] Inspector Name | Role | Phone | + +------+ + PCP | Unavailable | + +------+ + Encounter Details +--------+ + + + + | Date | Type | Department | Care Team | Description | +--------+ + + + + | 02/06/ | Hospital | [facility] | Conversion | Seizures (HCC) | | 2009 | Encounter | [facility] | Transaction, | | | | | NEURODIAGNOSTICS | Provider Unknown | | | | | [address] | | | | | | [place], [place] | (Fax) | | | | | [address] | | | | | | [phone] | | | +--------+ + + + [...] + | Diagnosis | + + | Seizures (HCC) Other convulsions | + + documented in this encounter"
--- OUTSIDE RECORDS SUMMARY | ~2020-04-29 | XMS | Encounter Summary ---
Demographics + + + | Address | [address] | | | [place] [address] | + + + | Home Phone | | + + + | Preferred Language | Unknown | + + + | Marital Status | Single | + + + | Christian Affiliation | CHR | + + + | Race | White | + + + | Ethnic Group | Not or | + + + Author + + + | Organization | Unknown | + + + | Address | Unknown | + + + | Phone | Unavailable | + + + Support + + + + + | Name | Relationship | Address | Phone | + + + + + | Mandy Willett | ECON | [address] | | | | | [address] | | | | | [address] | | + + + + + Care Team Providers + +------+ + | Care Room Service Clerk Name | Role | Phone | + +------+ + PCP | Unavailable | + +------+ + Encounter Details +--------+ + + + + | Date | Type | Department | Care Team | Description | +--------+ + + + + | 02/04/ | Results | | Other, Faculty | | | 1994 | Only | | [phone] | | +--------+ + + + + [...] | + +--------+ + + + | CHEST, 1 VIEW, | Routin | 03/14/1995 | | Results for this | | PORTABLE | e | 6:11 AM | | procedure are in the | | | | PDT | | results section. | + +--------+ + + + | CHEST, 1 VIEW, | Routin | 03/12/1995 | | Results for this | | PORTABLE | e | 5:30 AM | | procedure are in the | | | | PDT | | results section. | + +--------+ + + + | CHEST, 1 VIEW, | Urgent | 03/11/1995 | | Results for this | | PORTABLE | | 1:42 PM | | procedure are in the | | | | PDT | | results section. | + +--------+ + + + | X-RAY CHEST 1 VIEW | Routin | 02/04/1995 | | Results for this | | | e | 1:35 PM | | procedure are in the | | | | PDT | | results section. | + +--------+ + + + documented in this encounter Results CHEST, 1 VIEW, PORTABLE (03/14/1995 6:11 AM PDT) + + + + + + | Component | Value | Ref Range | Performed | Pathologist | | | | | At | Signature | + + + + + + | CHEST, 1 | Radiologist 1: Alex MUÑOZ | | | | Alex OVIEDO | | | | | NORBERTO | Lele-Radiologist 2: | | | | | | CEZAR RAMIREZ, | | | | | | SPRING ABBASI | | | | | | | | | | | | | | | | | | [phone] PORTABLE | | | | | | AP SUPINE VIEW OF CHEST: | | | | | | 03-14-95 AT 0530 HOURS | | | | | | | | | | | | | | | | | | Dictated: 03-14-95 | | | | | | Comparison is made with | | | | | | a prior study dated | | | | | | 03-13-95. FINDINGS: The | | | | | | two mediastinal drains | | | | | | have been removed. | | | | | | There is noevidence of | | | | | | pneumomediastinum. | | | | | | The pacemaker leads, | | | | | | right subclaviancentral | | | | | | venous catheter, and | | | | | | left-sided intrathoracic | | | | | | vascular clipare all | | | | | | unchanged in position. | | | | | | The cardiomediastinal | | | | | | silhouette is unchanged | | | | | | in size | | | | | | andconfiguration, as is | | | | | | the pulmonary vascular | | | | | | pattern. No | | | | | | newinfiltrates are | | | | | | identified. A small | | | | | | left-sided pleural | | | | | | effusionpersists. | | | | | | IMPRESSION: No evidence | | | | | | of pneumomediastinum, | | | | | | status post removal of | | | | | | two drainagecatheters. | | | | | | END OF IMPRESSION: | | | | + + + + + + + + | Specimen | + + | | + + + + + | Narrative | Performed At | + + + | Ordered by HON HURST | | + + + + +---------+ + + | Performing | Address | City/State/Zipcode | Phone Number | | Organization | | | | + +---------+ + + | [facility] DEPARTMENT OF | | | | | RADIOLOGY | | | | + +---------+ + + CHEST, 1 VIEW, PORTABLE (03/12/1995 5:30 AM PDT) + + + + + + | Component | Value | Ref Range | Performed | Pathologist | | | | | At | Signature | + + + + + + | CHEST, 1 | Radiologist 1: LEIF, | | | | | VIEW, | RODNEYER | | | | | PORTABLE | J.-Radiologist 2: | | | | | | CECILIA ANN | | | | | | SPRING ABBASI | | | | | | | | | | | | | | | | | | [birth year] | | | | | | CHEST, ONE PORTABLE | | | | | | RECUMBANT AP VIEW: | | | | | | 03/12/95, 0530 HOURS | | | | | | DICTATED: 03/12/95 | | | | | | COMPARISON: Comparison | | | | | | is made to portable | | | | | | recumbant AP view of | | | | | | [facility] dated March 11, | | | | | | 1994 at 1345 hours. | | | | | | FINDINGS: Support | | | | | | equipment is unchanged. | | | | | | The ET tube | | | | | | isapproximately 1.5 cm. | | | | | | above the chapo. | | | | | | There is stable | | | | | | mildpulmonary edema. A | | | | | | small left pleural | | | | | | effusion is identified. | | | | | | No definite pneumothorax | | | | | | is identified. There | | | | | | are no othersignificant | | | | | | changes. IMPRESSION: 1. | | | | | | Stable support | | | | | | equipment. 2. Stable | | | | | | persistent mild | | | | | | pulmonary edema. 3. No | | | | | | definite pneumothorax. | | | | | | 4. New small left | | | | | | pleural effusion. END | | | | | | OF IMPRESSION: | | | | + + + + + + + + | Specimen | + + | | + + + + + | Narrative | Performed At | + + + | Ordered by Edenilson MCCOLLUM M.D. | | + + + + +---------+ + + | Performing | Address | City/State/Zipcode | Phone Number | | Organization | | | | + +---------+ + + | [facility] DEPARTMENT OF | | | | | RADIOLOGY | | | | + +---------+ + + CHEST, 1 VIEW, PORTABLE (03/11/1995 1:42 PM PDT) + + + + + + | Component | Value | Ref Range | Performed | Pathologist | | | | | At | Signature | + + + + + + | CHEST, 1 | Radiologist 1: LEIF | | | | | PREET, | JOSE J | | | | | PORTABLE | JShae-Radiologist 2: | | | | | | CECILIA ANN | | | | | | SPRING ABBASI | | | | | | | | | | | | | | | | | | [birth year] CHEST, | | | | | | SINGLE PORTABLE, 03/11/95 | | | | | | AT 1342: Dictated: | | | | | | 03/12/95 Comparison is | | | | | | made to AP and lateral | | | | | | views of the chest | | | | | | dated 1994. | | | | | | FINDINGS: An | | | | | | endotracheal tube is | | | | | | located approximately | | | | | | 1.5 cm above the | | | | | | chapo.A right | | | | | | subclavian venous | | | | | | catheter is seen with | | | | | | the tip in thesuperior | | | | | | vena cava without | | | | | | definite pneumothorax. | | | | | | Postoperativechanges | | | | | | are noted including a | | | | | | clip overlying the left | | | | | | upper thorax andtwo | | | | | | mediastinal drains. | | | | | | There is a mild amount | | | | | | of pulmonary edema.The | | | | | | heart size is unchanged. | | | | | | IMPRESSION: 1. | | | | | | Postoperative changes. | | | | | | 2. Support equipment | | | | | | as described above with | | | | | | no definitepneumothorax. | | | | | | 3. Mild pulmonary | | | | | | edema. END OF | | | | | | IMPRESSION: | | | | + + + + + + + + | Specimen | + + | | + + + + + | Narrative | Performed At | + + + | Ordered by Edenilson MCCOLLUM M.D. | | + + + + +---------+ + + | Performing | Address | City/State/Zipcode | Phone Number | | Organization | | | | + +---------+ + + | [facility] DEPARTMENT OF | | | | | RADIOLOGY | | | | + +---------+ + + CHEST 1 VIEW (02/04/1995 1:35 PM PDT) + + + + + + | Component | Value | Ref Range | Performed | Pathologist | | | | | At | Signature | + + + + + + | CHEST, 1 | Radiologist 1: NATALI SALOMON | | | | | VIEW | Lele Berry-Radiologist 2: | | | | | | AUTUMN [place], | | | | | | ANDERS VIDAL | | | | | | | | | | | | | | | | | | | | | | | | [birth year]-62RUSTYT, SINGLE | | | | | | VIEW: 02/04/95 at 1335 | | | | | | hrs DICTATED: | | | | | | 02/08/95 FINDINGS: | | | | | | The cardiac size is at | | | | | | the upper limits of | | | | | | normal. Thecentral | | | | | | pulmonary vascular | | | | | | pattern appears | | | | | | prominent. The | | | | | | archappears to be | | | | | | left-sided. The | | | | | | stomach bubble appears | | | | | | to be left-sidedas well. | | | | | | The lungs are grossly | | | | | | clear. No pleural | | | | | | effusion isevident. | | | | | | The bones and soft | | | | | | tissues appear grossly | | | | | | normal. IMPRESSION: | | | | | | Borderline enlarged | | | | | | heart size. Central | | | | | | pulmonary vascular | | | | | | prominence suggests | | | | | | shunt vascularity | | | | | | whichmay be due to | | | | | | ventricular septal | | | | | | defect, atrial septal | | | | | | defect orpatent ductus | | | | | | arteriosus.END OF | | | | | | IMPRESSION: | | | | + + + + + + + + | Specimen | + + | | + + + + + | Narrative | Performed At | + + + | Ordered by JINA BOCANEGRA | | + + + + +---------+ + + | Performing | Address | City/State/Zipcode | Phone Number | | Organization | | | | + +---------+ + + | [facility] DEPARTMENT OF | | | | | RADIOLOGY | | | | + +---------+ + + documented in this encounter Visit Diagnoses Not on filedocumented in this encounter"
--- OUTSIDE RECORDS SUMMARY | ~2020-04-29 | XMS | Encounter Summary ---
Demographics + + + | Address | [address] | | | [place] [address] | + + + | Home Phone | | + + + | Preferred Language | Unknown | + + + | Marital Status | Single | + + + | Muslim Affiliation | 1013 | + + + | Race | Unknown | + + + | Ethnic Group | Unknown | + + + Author + + + | Author | [facility] | | | and [place] | + + + | Organization | [facility] | | | and [...] [place] | | | | | [address] | | + + + + + Care Team Providers + +------+ + | Care Epic Ambulatory Analysts Name | Role | Phone | + [...] | +--------+ + + + + | 11/02/ | Emergency | [facility] | Michael Mendoza, | Breakthrough seizure | | 2019 | | FAMILY EM[facility]Y | [place] [address] | ([facility]) (Primary Dx) | | | | [address] | [facility] | | | | | [facility] | [place] [address] | | | | | [place], [place] | [phone] | | | | | [address] | | | | | | [phone] | | | +--------+ + + + [...] + + + | Blood Pressure | 128/85 | 11/02/2018 9:59 PM | | | | | PST | | + + + + + | Pulse | 95 | 11/02/2018 9:59 PM | | | | | PST | | + + + + + | Temperature | 36.2 C (97.2 F) | 11/02/2018 9:03 PM | | | | | PST | | + + + + + | Respiratory Rate | 18 | 11/02/2018 9:59 PM | | | | | PST | | + + + + + | Oxygen Saturation | 96% | 11/02/2018 9:59 PM | | | | | PST | | + + + + + | Inhaled Oxygen | - | - | | | Concentration | | | | + + + + + | Weight | 70.8 kg (156 lb) | 11/02/2018 9:03 PM | | | | | PST | | + + + + + | Height | 185.4 cm (6' 1") | 11/02/2018 9:03 PM | | | | | PST | | + + + + + | Body Mass Index | 20.58 | 11/02/2018 9:03 PM | | | | | PST | | + + + + + documented in this encounter Discharge Instructions Instructions Michael Mendoza MD - 11/02/2018Continue current medication as prescribed. Return for worsening symptoms. Thank you for for coming to [facility] for your care today. Please ask your nurse or Dr. Mendoza if you have questions about your care today. Please use any med ications given as directed and follow-up with your doctor (or the doctor you were referred t o) as directed. Indications for more urgent follow-up have been discussed, but you may retur n to the Emergency Department at ANY time with any new or concerning symptoms. You need to find someone who can be your primary certified caregiver and see you when routine heal th concerns arise and follow you for any chronic conditions. Contact your insurer or try on e of the clinics listed below to establish care and follow up as soon as possible. Aloe up with your primary care doctor back in [facility] or if you are going to be in this area for a while he may look for a primary care doctor at the following locations or 1 of your choosing. [facility] [phone] (multiple locations in [place] and one in [place]) [facility] [phone] ([address] [facility]) [facility] [phone] (at [facility]) -Urgent care also available for urgent follow-up and help establishing primary doctor. [facility] [phone] ([address]) AttachmentsThe following attachments cannot be sent through Care Everywhere.Seizure, Recurr ent (Adult) (Croatian)documented in this encounter Medications at Time of [...] documented as of this encounter ED Notes Michael Mendoza MD - 11/02/2018 9:46 PM PSTFormatting of this note might be different fro m the original. CHIEF COMPLAINT Chief Complaint Patient presents with Seizure (Adult - Prior Hx Of) HPI Rene Willett is a 22 y.o. male who presents with seizure. Patient felt somethin g coming on and then woke up in the bed. He was reportedly postictal by EMS. They did not need to give him any medication and his blood glucose level was 134 when he checked in. He has gradually returned back to baseline. Might have bit the left side of his tongue. No de finite loss of urinary control. He has a known seizure disorder and takes Lamictal for it w ith no missed doses. Occasionally has seizure and this is not all that atypical for him. A lso reportedly has a history of a heart transplant as a child but given the time when it was performed he no longer requires immunosuppressive therapy. He is not having complaints of chest pain or shortness of breath or weight gain or leg swelling. He is currently in drug t reatment and doing well. No other complaints at this time. No other exacerbating or alleviating factors and no other associated symptoms. REVIEW OF SYSTEMS Ten systems are reviewed and are negative unless otherwise noted in the HPI. PAST MEDICAL HISTORY Past Medical History: Diagnosis Date Epilepsy (HCC) SURGICAL HISTORY Past Surgical History: Procedure Laterality Date HEART TRANSPLANT As a child, does not need immunosuppressive therapy CURRENT MEDICATIONS Previous Medications LAMOTRIGINE (LAMICTAL) 150 MG TABLET TAKE 2 TABS BY MOUTH TWICE DAILY MIDAZOLAM (VERSED) 5 MG/ML INJECTION Dispense 10mg intranasally (5mg/1ml in each nostri l) with MAD device as needed for a seizure lasting longer than 5 minutes or two occurring ba ck to back without recovery in between. ALLERGIES Allergies Allergen Reactions Penicillins Other (See Comments) Possible allergy SOCIAL HISTORY He reports that he has never smoked. He has never used smokeless tobacco. He reports that he does not drink alcohol or use drugs. PHYSICAL EXAM VITAL SIGNS: Temp: 36.2 C (97.2 F) Pulse: 109 Resp: 20 SpO2: 96 % BP: 138/66 Constitutional: Alert adult male Head: Normocephalic and atraumatic Eyes: Conjunctiva clear. No injection or discharge. No icterus. ENT: No facial trauma, no rhinorrhea or epistaxis. No trismus. There is a small superfici al laceration on the left side of the tongue. No active bleeding. Voice sounds normal. Neck: No adenopathy supple Thorax & Lungs: There to auscultation with symmetric breath sounds Cardiovascular: Tachycardia, regular Abdomen: Nontender, no mass or guarding Skin: warm and well perfused. Not diaphoretic. Extremities: Strength appears normal, good distal perfusion Neurologic: Awake, alert, oriented. No facial asymmetry. Speech is normal and fluent. No gross focal motor deficits. No meningeal findings COURSE & MEDICAL DECISION MAKING History from: Patient and review of the medical record Currently available nursing notes and vitals signs reviewed. Pertinent Labs & Imaging studies reviewed. (See chart for details) Based on initial evaluation differential diagnosis includes but is not limited to encephali tis, meningitis, head injury, seizure, syncope. Initial diagnostic and therapeutic orders placed. Interventions: Observed, telemetry shows no arrhythmia or ectopy. Medications given: Medications - No data to display Reassessment shows patient is completely back to baseline. Medical decision making: This is a 22 y.o. male with breakthrough seizure. Currently appea rs well. I do not see an indication for extensive laboratory testing or imaging. I do not think this was syncopal in nature. Clinically does not have symptoms to suggest meningitis or encephalitis. Recommend continue current medication as prescribed and recheck with his [facility] doctors as an outpatient basis unless he has recurrent seizure. Findings and pl an of care discussed with patient and he is medically stable to return to treatment facility .. Vitals: 11/02/18 2103 BP: 138/66 Pulse: 109 Resp: 20 Temp: 36.2 C (97.2 F) Your blood pressure was higher than normal today. This can have adverse effects on your he alth over time. You should have your blood pressure rechecked by your doctor and discuss wh ether you need to be treated for this. Please call your doctor for an appointment within th e next 2-3 weeks. Lifestyle modifications such as maintaining a healthy weight and getting regular exercise can be helpful in maintaining a healthy blood pressure. FINAL IMPRESSION 1. Breakthrough seizure (HCC) DISPOSITION Home Follow-up Information [facility]. Specialty: Emergency Medicine Why: If symptoms worsen Contact information: [address] [facility] [address] . I feel the patient is stable for discharge at this time. I have discussed results, examinat ion findings, disposition, and the treatment plan with the patient (and family present) prio r to discharge. Indications for emergent reevaluation and side effects of medications were d iscussed and any questions were answered. He verbalized understanding and agreement with the treatment plan.The patient was discharged home in good condition. With instructions to retu rn to ER for new or worsening symptoms. Portions of this chart may have been created with [employer] voice recognition software. Occasi onal wrong word or "sounded like" substitutions occur due to the inherent limitations of voi ce recognition software. Please read the chart carefully and recognize, using context, where the substitutions may have occurred. Michael Mendoza MD 11/02/18 [address] - 11/02/2018 9:02 PM PSTPt [facility] "full tonic -clonic seizure lasting 1.5minutes" per EMS. Pt has a hx of epilepsy but does not remember w hen his last seizure was. ndrea Ambrose RN - 11/02/2018 8:57 PM PSTBed: ED17 Expected date: Expected time: Means of arrival: Comments: brendan SZ from [facility] documented in this encounter Plan of Treatment Not on filedocumented as of this encounter Procedures + +--------+ + + + | Procedure Name | Priori | Date/Time | Associated Diagnosis | Comments | | | ty | | | | + +--------+ + + + | EXTRA HOLD TUBE(S) | STAT | 11/02/2018 | | Results for this | | | | 9:08 PM | | procedure are in the | | | | PST | | results section. | + +--------+ + + + documented in this encounter Results Extra Hold Tube(s) (11/02/2018 9:08 PM PST) + + + + + + | Component | Value | Ref Range | Performed | Pathologist | | | | | At | Signature | + + + + + + | Extra Tube | DrawnComment: Performed | | [facility] | | | | by [facility] [address] | [address] | | | | [facility], | | [place] | | | | [place] [address] | | [place] | | | | | | | | + + + + + + + + | Specimen | + + | Blood specimen | | (specimen) | + + + + + + + | Performing | Address | City/State/Zipcode | Phone Number | | Organization | | | | + + + + + | [facility] | [address] | [place] [address] | | | [facility] | | | | | [place] | | | | + + + + + documented in this encounter Visit Diagnoses + + | Diagnosis | + + | Breakthrough seizure (HCC) - Primary Unspecified epilepsy with intractable epilepsy | + + documented in this encounter
--- OUTSIDE RECORDS SUMMARY | ~2020-04-29 | XMS | Encounter Summary ---
Demographics + + + | Address | [address] | | | [place] [address] | + + + | Home Phone | | + + + | Preferred Language | Unknown | + + + | Marital Status | Single | + + + | Advent Affiliation | 1013 | + + + | Race | Unknown | + + + | Ethnic Group | Unknown | + + + Author + + + | Author | [facility] | | | and [place] | + + + | Organization | [facility] | | | and [place] [...] [place] | | | | | [address] | | + + + + + Care Team Providers + +------+ + | Care Cutter Machine Name | Role | Phone | + [...] | +--------+ + + + + | 12/04/ | Emergency | [facility] | David Keith MD | Breakthrough seizure | | 2019 | | [facility] | [address] | ([facility]) (Primary Dx) | | | | CENTER [address] [place], [place] | | | | | [address] | [address] | | | | | [place], [place] | | | | | | [address] | | | | | | [phone] | | | +--------+ + + + [...] + + + | Blood Pressure | 130/85 | 12/04/2018 10:30 PM | | | | | PDT | | + + + + + | Pulse | 88 | 12/04/2018 10:30 PM | | | | | PDT | | + + + + + | Temperature | 36.3 C (97.3 F) | 12/04/2018 9:32 PM | | | | | PDT | | + + + + + | Respiratory Rate | 16 | 12/04/2018 10:30 PM | | | | | PDT | | + + + + + | Oxygen Saturation | 95% | 12/04/2018 10:30 PM | | | | | PDT | | + + + + + | Inhaled Oxygen | - | - | | | Concentration | | | | + + + + + | Weight | 75.8 kg (167 lb) | 12/04/2018 9:32 PM | | | | | PDT | | + + + + + | Height | 185.4 cm (6' 1") | 12/04/2018 9:32 PM | | | | | PDT | | + + + + + | Body Mass Index | 22.03 | 12/04/2018 9:32 PM | | | | | PDT | | + + + + + documented in this encounter Discharge Instructions Instructions David Keith MD - 12/04/2018Please take all your medications as prescribed. Contact your neurologist to see if they would like to make any adjustment in your medicati ons. Return to the emergency department as needed. AttachmentsThe following attachments cannot be sent through Care Everywhere.Epilepsy, Self- Care for ([place]i)Seizure, Safety During A: Epilepsy ([place]i)documented in this encounter Medications at Time of [...] + + + +---------+ + + | levETIRAcetam | Take 500 mg by mouth | | 0 | | | | (KEPPRA) 500 mg | 2 times daily. | | | | | | tablet | | | [...] documented as of this encounter ED Notes David Keith MD - 12/04/2018 10:22 PM PDT History Chief Complaint Patient presents with Seizure (Adult - Prior Hx Of) HPI Patient is a 22-year-old male with a history of epilepsy, TAPVR repair at 3 months of age w ho presents with reported seizure activity. Patient states that he was at a [employer] meeting this evening and remembers entire meeting. He states that he walked out after the meaning and the next thing he knew he was in the back when ambulance. It was reported t hat he had a seizure. The patient states that he otherwise feels fine at this time. He sta radha he's been taking his Lamictal and Keppra as prescribed and has not missed any doses. He states he occasionally has breakthrough seizures while on his medications. He reports that his neurologist is in [place]. He denies any fevers, chills, cough, congestion, chest pain , shortness of breath, palpitations, nausea, vomiting, constipation, diarrhea, dysuria, valentino turia, urinary urgency or frequency, rash. Previous Medications LAMOTRIGINE (LAMICTAL) 150 MG TABLET TAKE 2 TABS BY MOUTH TWICE DAILY LEVETIRACETAM (KEPPRA) 500 MG TABLET Take 500 mg by mouth 2 times daily. MIDAZOLAM (VERSED) 5 MG/ML INJECTION Dispense 10mg intranasally (5mg/1ml in each nostri l) with MAD device as needed for a seizure lasting longer than 5 minutes or two occurring ba ck to back without recovery in between. He is allergic to penicillins.. Past Medical History: Diagnosis Date Epilepsy (HCC) Past Surgical History: Procedure Laterality Date Total anomalous pulmonary venous return repair History reviewed. No pertinent family history. Social History Social History Marital status: Single Spouse name: N/A Number of children: N/A Years of education: N/A Social History Main Topics Smoking status: Never Smoker Smokeless tobacco: Never Used Alcohol use No Drug use: No Sexual activity: No Other Topics Concern None Social History Narrative None Review of Systems A total of 10 systems reviewed and are negative or non-contributory except as above. Physical Exam BP 137/83 | Pulse 100 | Temp 36.3 C (97.3 F) (Oral) | Resp 16 | Ht 1.854 m (6' 1") | Wt 75.8 kg (167 lb) | SpO2 95% | BMI 22.03 kg/m Physical Exam Constitutional: He is oriented to person, place, and time. He appears well-developed and we ll-nourished. No distress. Patient is laying in bed in no acute distress. HENT: Head: Normocephalic and atraumatic. Right Ear: External ear normal. Left Ear: External ear normal. Nose: Nose normal. Mouth/Throat: Oropharynx is clear and moist. No oropharyngeal exudate. Eyes: Pupils are equal, round, and reactive to light. Conjunctivae and EOM are normal. Righ t eye exhibits no discharge. Left eye exhibits no discharge. No scleral icterus. Neck: Normal range of motion. No tracheal deviation present. Cardiovascular: Normal rate, regular rhythm and normal heart sounds. Exam reveals no pinon p and no friction rub. No murmur heard. Pulmonary/Chest: Effort normal and breath sounds normal. No respiratory distress. He has no wheezes. He has no rales. Abdominal: Soft. Bowel sounds are normal. He exhibits no distension. There is no tenderness . There is no rebound and no guarding. Musculoskeletal: Normal range of motion. He exhibits no edema or deformity. Neurological: He is alert and oriented to person, place, and time. He has normal strength. No cranial nerve deficit or sensory deficit. He exhibits normal muscle tone. Coordination an d gait normal. GCS eye subscore is 4. GCS verbal subscore is 5. GCS motor subscore is 6. Skin: Skin is warm and dry. No rash noted. He is not diaphoretic. No erythema. Psychiatric: He has a normal mood and affect. Nursing note and vitals reviewed. ED Course Procedures MDM DIFFERENTIAL DIAGNOSIS: Given the patient's history and physical exam findings the most lik winifred cause of the symptoms is breakthrough seizure. Do not suspect infection, medication nonc ompliance, meningitis, encephalitis, status epilepticus, syncope. DOCUMENTATION REVIEWED: Prior Epic notes PULSE OXIMETRY: Vital signs reviewed: pulse ox: 95% on room air - normal RE-ASSESSMENT: ED Course Sun Dec 04, 20182228 The patient is back at baseline and has no complaints. He reports his been compliant with his medications. He has not had any recent illnesses and I do not think any laboratory testing or imaging studies is necessary at this time. The patient is agreeable with this p jonny. He was given strict return precautions. IMPRESSION: ICD-10-CM ICD-9-CM 1. Breakthrough seizure (HCC) G40.919 345.91 PLAN: Counseled patient regarding diagnosis, diagnostic results, and treatment plan. Patie nt indicated understanding of instructions. Anticipatory guidance and return precautions exp lained to the patient. Patient is agreeable with discharge home and follow up as outpatient . DISPOSITION: Discharge home with continued outpatient follow up CONDITION: stable PRESCRIPTIONS: Discharge Medications Unchanged Medications Details lamoTRIgine 150 MG tablet TAKE 2 TABS BY MOUTH TWICE DAILY aka: LAMICTAL levETIRAcetam 500 mg tablet Take 500 mg by mouth 2 times daily. aka: TONIA midazolam 5 mg/mL injection Dispense 10mg intranasally (5mg/1ml in each nostril) with MAD device as needed for a seizu re lasting longer than 5 minutes or two occurring back to back without recovery in between. aka: VERSED This note has been dictated using [employer] voice recognition software. It will be revi ewed for major content but may contain mistakes due to difficulties with voice recognition s oftware. David Keith MD 12/04/182235 mer Tang RN - 12/04/2018 9:27 PM PDTBrought by EMS. Seizure within last hour. Is in treatment and had a seizure after a meeting. Seizure history. Now is awake, alert, oriented. EMS witnessed no p ostictal state. encarlos alberto y, Andrea Madsen RN - 12/04/2018 9:20 PM PDTBed: ED24 Expected date: 12/04/18 Expected time: 2113 Means of arrival: ALS Ambulance Comments: MODE:[facility] CC:Post Seizure ETA:[id number] [id number] Vitals: 168/93 123 GCS: 15 FAST: EKG: Records Management Specialist: Activation: Comments: Provider/RN: Bryce Trauma Activation: No Trauma Activation documented in this encounter Plan of Treatment Not on filedocumented as of this encounter Procedures + +--------+ + + + | Procedure Name | Priori | Date/Time | Associated Diagnosis | Comments | | | ty | | | | + +--------+ + + + | EXTRA HOLD TUBE(S) | STAT | 12/04/2018 | | Results for this | | | | 9:10 PM | | procedure are in the | | | | PDT | | results section. | + +--------+ + + + documented in this encounter Results Extra Hold Tube(s) (12/04/2018 9:10 PM PDT) + + + + + + | Component | Value | Ref Range | Performed | Pathologist | | | | | At | Signature | + + + + + + | Extra Tube | DrawnComment: Performed | | [facility] | | | | by [facility] [address] | [address] | | | | [facility], | | LABORATORY | | | | [place] [address] | | [place] | | | | | | | | + + + + + + + + | Specimen | + + | Blood specimen | | (specimen) | + + + + + + + | Performing | Address | City/State/Zipcode | Phone Number | | Organization | | | | + + + + + | [facility] | [address] | [place] [address] | | | [facility] | | | | | [place] | | | | + + + + + documented in this encounter Visit Diagnoses + + | Diagnosis | + + | Breakthrough seizure (HCC) - Primary Unspecified epilepsy with intractable epilepsy | + + documented in this encounter
--- OUTSIDE RECORDS SUMMARY | ~2020-04-29 | XMS | Encounter Summary ---
Demographics + + + | Address | [address] | | | [place] [address] | + + + | Home Phone [...] Author + + + | Author | [facility] | + + + | Organization | [facility] | + + + | Address | Unknown | + + + | Phone | Unavailable | + + + Support + + + + + | Name | Relationship | Address | Phone | + + + + + | Mandy Willett | ECON | [address] | | | | | [place] | | | | | [address] | | + + + + + Care Team Providers + +------+ + | Care Marble Installation Helper Name | Role | Phone | + +------+ + | Missy Gaston | PCP | | + +------+ + Reason for Visit + + + | Reason | Comments | + + + | Fracture of mandible | | + + + Encounter Details +--------+ + + + + | Date | Type | Department | Care Team | Description | +--------+ + + + + | 04/15/ | Emergency | [facility] | | | | 2016 - | | Department [address] | | | | | | [address] | | | | 04/17/ | | [facility] | | | | 2016 | | [place], [place] | | | | | | [address] | | | | | | [phone] | | | +--------+ + + + [...]
--- OUTSIDE RECORDS SUMMARY | ~2020-04-29 | XMS | Encounter Summary ---
Demographics + + + | Address | [address] | | | [place] [address] | + + + | Home Phone | | + + + | Preferred Language | Unknown | + + + | Marital Status | Single | + + + | Jew Affiliation | CHR | + + + | Race | White | + + + | Ethnic Group | Not or | + + + Author + + + | Author | [facility] | + + + | Organization | [facility] | + + + | Address | Unknown | + + + | Phone | Unavailable | + + + Support + + + + + | Name | Relationship | Address | Phone | + + + + + | Mandy Willett | ECON | [address] | | | | | [place] | | | | | [address] | | + + + + + Care Team Providers + +------+ + | Care Solution Analyst Name | Role | Phone | [...] + + | 04/15/ | Emergency | [facility] | | | | 2016 - | | Department [address] | | | | | | [address] | | | | 04/17/ | | [facility] | | | | 2016 | | [place], [place] | | | | | | [address] | | | | | | [phone] | | | +--------+ + + + [...]
--- OUTSIDE RECORDS SUMMARY | ~2020-04-29 | XMS | Encounter Summary ---
Demographics + + + | Address | [address] | | | [place] [address] | + + + | Home Phone | | + + + | Preferred Language | Unknown | + + + | Marital Status | Single | + + + | Shinto Affiliation | CHR | + + + [...] [place] | | | | | [address] | | + + + + + Care Team Providers + +------+ + | Care Correctional Supervisor Lieutenant Name | Role | Phone | + +------+ + PCP | Unavailable | + +------+ + Encounter Details +--------+ + + + + | Date | Type | Department | Care Team | Description | +--------+ + + + + | 03/10/ | Results | Registration [id number] | | | | 1994 | Only | [address] | | | | | | [address] Mailcode: [id number] | | | | | | [place], [place] | | | | | | [address] | | | | | | [phone] | | | +--------+ + + + [...] + +--------+ + + + | CBC TESTS 2 | Routin | 03/15/1995 | | Results for this | | | e | 7:30 AM | | procedure are in the | | | | PDT | | results section. | + +--------+ + + + | CHEMISTRY TESTS 4 | Routin | 03/15/1995 | | Results for this | | | e | 6:00 AM | | procedure are in the | | | | PDT | | results section. | + +--------+ + + + | CBC TESTS 2 | Routin | 03/15/1995 | | Results for this | | | e | 6:00 AM | | procedure are in the | | | | PDT | | results section. | + +--------+ + + + | CHEMISTRY TESTS 4 | Routin | 03/14/1995 | | Results for this | | | e | 10:00 AM | | procedure are in the | | | | PDT | | results section. | + +--------+ + + + | CHEMISTRY TESTS 4 | Routin | 03/14/1995 | | Results for this | | | e | 3:48 AM | | procedure are in the | | | | PDT | | results section. | + +--------+ + + + | BLOOD GASES, | Routin | 03/14/1995 | | Results for this | | ARTERIAL - LAB | e | 3:48 AM | | procedure are in the | | | | PDT | | results section. | + +--------+ + + + | CHEMISTRY TESTS 4 | Routin | 03/14/1995 | | Results for this | | | e | 3:46 AM | | procedure are in the | | | | PDT | | results section. | + +--------+ + + + | THERAPEUTIC DRUG | Routin | 03/14/1995 | | Results for this | | TESTS 1 | e | 3:46 AM | | procedure are in the | | | | PDT | | results section. | + +--------+ + + + | CBC TESTS 2 | Routin | 03/14/1995 | | Results for this | | | e | 3:40 AM | | procedure are in the | | | | PDT | | results section. | + +--------+ + + + | CHEMISTRY TESTS 4 | Routin | 03/14/1995 | | Results for this | | | e | 12:25 AM | | procedure are in the | | | | PDT | | results section. | + +--------+ + + + | CHEMISTRY TESTS 4 | Routin | 03/13/1995 | | Results for this | | | e | 6:45 PM | | procedure are in the | | | | PDT | | results section. | + +--------+ + + + | CHEMISTRY TESTS 4 | Routin | 03/13/1995 | | Results for this | | | e | 3:00 PM | | procedure are in the | | | | PDT | | results section. | + +--------+ + + + | BLOOD GASES, | Routin | 03/13/1995 | | Results for this | | ARTERIAL - LAB | e | 3:00 PM | | procedure are in the | | | | PDT | | results section. | + +--------+ + + + | CHEMISTRY TESTS 4 | Routin | 03/13/1995 | | Results for this | | | e | 4:06 AM | | procedure are in the | | | | PDT | | results section. | + +--------+ + + + | BLOOD GASES, | Routin | 03/13/1995 | | Results for this | | ARTERIAL - LAB | e | 4:06 AM | | procedure are in the | | | | PDT | | results section. | + +--------+ + + + | CHEMISTRY TESTS 4 | Routin | 03/13/1995 | | Results for this | | | e | 4:03 AM | | procedure are in the | | | | PDT | | results section. | + +--------+ + + + | CBC TESTS 2 | Routin | 03/13/1995 | | Results for this | | | e | 4:00 AM | | procedure are in the | | | | PDT | | results section. | + +--------+ + + + | BLOOD GASES, | Routin | 03/12/1995 | | Results for this | | ARTERIAL - LAB | e | 10:35 PM | | procedure are in the | | | | PDT | | results section. | + +--------+ + + + | BLOOD GASES, | Routin | 03/12/1995 | | Results for this | | ARTERIAL - LAB | e | 9:15 PM | | procedure are in the | | | | PDT | | results section. | + +--------+ + + + | CHEMISTRY TESTS 4 | Routin | 03/12/1995 | | Results for this | | | e | 8:05 PM | | procedure are in the | | | | PDT | | results section. | + +--------+ + + + | CBC TESTS 2 | Routin | 03/12/1995 | | Results for this | | | e | 8:05 PM | | procedure are in the | | | | PDT | | results section. | + +--------+ + + + | BLOOD GASES, | Routin | 03/12/1995 | | Results for this | | ARTERIAL - LAB | e | 8:05 PM | | procedure are in the | | | | PDT | | results section. | + +--------+ + + + | CHEMISTRY TESTS 4 | Routin | 03/12/1995 | | Results for this | | | e | 6:00 PM | | procedure are in the | | | | PDT | | results section. | + +--------+ + + + | BLOOD GASES, | Routin | 03/12/1995 | | Results for this | | ARTERIAL - LAB | e | 6:00 PM | | procedure are in the | | | | PDT | | results section. | + +--------+ + + + | BLOOD GASES, | Routin | 03/12/1995 | | Results for this | | ARTERIAL - LAB | e | 4:35 PM | | procedure are in the | | | | PDT | | results section. | + +--------+ + + + | BLOOD GASES, | Routin | 03/12/1995 | | Results for this | | ARTERIAL - LAB | e | 3:15 PM | | procedure are in the | | | | PDT | | results section. | + +--------+ + + + | CHEMISTRY TESTS 4 | Routin | 03/12/1995 | | Results for this | | | e | 2:00 PM | | procedure are in the | | | | PDT | | results section. | + +--------+ + + + | BLOOD GASES, | Routin | 03/12/1995 | | Results for this | | ARTERIAL - LAB | e | 2:00 PM | | procedure are in the | | | | PDT | | results section. | + +--------+ + + + | BLOOD GASES, | Routin | 03/12/1995 | | Results for this | | ARTERIAL - LAB | e | 12:15 PM | | procedure are in the | | | | PDT | | results section. | + +--------+ + + + | CHEMISTRY TESTS 4 | Routin | 03/12/1995 | | Results for this | | | e | 10:00 AM | | procedure are in the | | | | PDT | | results section. | + +--------+ + + + | BLOOD GASES, | Routin | 03/12/1995 | | Results for this | | ARTERIAL - LAB | e | 10:00 AM | | procedure are in the | | | | PDT | | results section. | + +--------+ + + + | CHEMISTRY TESTS 4 | Routin | 03/12/1995 | | Results for this | | | e | 7:50 AM | | procedure are in the | | | | PDT | | results section. | + +--------+ + + + | BLOOD GASES, | Routin | 03/12/1995 | | Results for this | | ARTERIAL - LAB | e | 7:50 AM | | procedure are in the | | | | PDT | | results section. | + +--------+ + + + | CHEMISTRY TESTS 4 | Routin | 03/12/1995 | | Results for this | | | e | 5:58 AM | | procedure are in the | | | | PDT | | results section. | + +--------+ + + + | BLOOD GASES, | Routin | 03/12/1995 | | Results for this | | ARTERIAL - LAB | e | 5:58 AM | | procedure are in the | | | | PDT | | results section. | + +--------+ + + + | CHEMISTRY TESTS 4 | Routin | 03/12/1995 | | Results for this | | | e | 4:45 AM | | procedure are in the | | | | PDT | | results section. | + +--------+ + + + | BLOOD GASES, | Routin | 03/12/1995 | | Results for this | | ARTERIAL - LAB | e | 4:45 AM | | procedure are in the | | | | PDT | | results section. | + +--------+ + + + | CHEMISTRY TESTS 4 | Routin | 03/12/1995 | | Results for this | | | e | 4:30 AM | | procedure are in the | | | | PDT | | results section. | + +--------+ + + + | CBC TESTS 2 | Routin | 03/12/1995 | | Results for this | | | e | 4:30 AM | | procedure are in the | | | | PDT | | results section. | + +--------+ + + + | BLOOD GASES, | Routin | 03/12/1995 | | Results for this | | ARTERIAL - LAB | e | 2:51 AM | | procedure are in the | | | | PDT | | results section. | + +--------+ + + + | BLOOD GASES, | Routin | 03/12/1995 | | Results for this | | ARTERIAL - LAB | e | 1:40 AM | | procedure are in the | | | | PDT | | results section. | + +--------+ + + + | CHEMISTRY TESTS 4 | Routin | 03/11/1995 | | Results for this | | | e | 11:47 PM | | procedure are in the | | | | PDT | | results section. | + +--------+ + + + | BLOOD GASES, | Routin | 03/11/1995 | | Results for this | | ARTERIAL - LAB | e | 11:47 PM | | procedure are in the | | | | PDT | | results section. | + +--------+ + + + | CHEMISTRY TESTS 4 | Routin | 03/11/1995 | | Results for this | | | e | 5:50 PM | | procedure are in the | | | | PDT | | results section. | + +--------+ + + + | BLOOD GASES, VENOUS | Routin | 03/11/1995 | | Results for this | | - LAB | e | 5:50 PM | | procedure are in the | | | | PDT | | results section. | + +--------+ + + + | CHEMISTRY TESTS 4 | Routin | 03/11/1995 | | Results for this | | | e | 5:00 PM | | procedure are in the | | | | PDT | | results section. | + +--------+ + + + | CBC TESTS 2 | Routin | 03/11/1995 | | Results for this | | | e | 5:00 PM | | procedure are in the | | | | PDT | | results section. | + +--------+ + + + | BLOOD GASES, VENOUS | Routin | 03/11/1995 | | Results for this | | - LAB | e | 5:00 PM | | procedure are in the | | | | PDT | | results section. | + +--------+ + + + | BLOOD GASES, | Routin | 03/11/1995 | | Results for this | | ARTERIAL - LAB | e | 3:45 PM | | procedure are in the | | | | PDT | | results section. | + +--------+ + + + | CHEMISTRY TESTS 4 | Routin | 03/11/1995 | | Results for this | | | e | 2:00 PM | | procedure are in the | | | | PDT | | results section. | + +--------+ + + + | CHEMISTRY TESTS 4 | Routin | 03/11/1995 | | Results for this | | | e | 2:00 PM | | procedure are in the | | | | PDT | | results section. | + +--------+ + + + | CBC TESTS 2 | Routin | 03/11/1995 | | Results for this | | | e | 2:00 PM | | procedure are in the | | | | PDT | | results section. | + +--------+ + + + | BLOOD GASES, | Routin | 03/11/1995 | | Results for this | | ARTERIAL - LAB | e | 2:00 PM | | procedure are in the | | | | PDT | | results section. | + +--------+ + + + | CHEMISTRY TESTS 4 | Routin | 03/10/1995 | | Results for this | | | e | 8:00 PM | | procedure are in the | | | | PDT | | results section. | + +--------+ + + + | CBC TESTS 2 | Routin | 03/10/1995 | | Results for this | | | e | 8:00 PM | | procedure are in the | | | | PDT | | results section. | + +--------+ + + + | COAGULATION TESTS 2 | Routin | 03/10/1995 | | Results for this | | | e | 8:00 PM | | procedure are in the | | | | PDT | | results section. | + +--------+ + + + | TRANSFUSION MEDICINE | Routin | 03/10/1995 | | Results for this | | TESTS | e | 8:00 PM | | procedure are in the | | | | PDT | | results section. | + +--------+ + + + documented in this encounter Results CBC TESTS 2 (03/15/1995 7:30 AM PDT) + + + + + + | Component | Value | Ref Range | Performed | Pathologist | | | | | At | Signature | + + + + + + | WHITE CELL | 8.5 | K/CU MM | | | | COUNT | | | | | + + + + + + | WHITE CELL | CHECKED | K/CU MM | | | | COUNT | | | | | + + + + + + + + | Specimen | + + | | + + + + + + + | Performing | Address | City/State/Zipcode | Phone Number | | Organization | | | | + + + + + | [facility] | [address] | [place] [address] | | | PATHOLOGY | [address] | | | + + + + + CHEMISTRY TESTS 4 (03/15/1995 6:00 AM PDT) + + + + + + | Component | Value | Ref Range | Performed | Pathologist | | | | | At | Signature | + + + + + + | SODIUM, | 140. | mmol/l | | | | PLASMA | | | | | | (LAB) | | | | | + + + + + + | POTASSIUM, | 5.7 (H) | mmol/l | | | | PLASMA | | | | | | (LAB) | | | | | + + + + + + | CHLORIDE, | 108. | mmol/l | | | | PLASMA | | | | | | (LAB) | | | | | + + + + + + | TOTAL CO2, | 23. | mmol/l | | | | PLASMA | | | | | | (LAB) | | | | | + + + + + + | BUN, PLASMA | 6. | mg/dL | | | | (LAB) | | | | | + + + + + + | CREATININE | 0.1 (L) | mg/dL | | | | PLASMA | | | | | | (LAB) | | | | | + + + + + + | GLUCOSE, | 83. (H) | mg/dL | | | | PLASMA | | | | | | (LAB) | | | | | + + + + + + + + | Specimen | + + | | + + + + + + + | Performing | Address | City/State/Zipcode | Phone Number | | Organization | | | | + + + + + | [facility] | [address] | [place] [address] | | | PATHOLOGY | [address] | | | + + + + + CBC TESTS 2 (03/15/1995 6:00 AM PDT) + + + + + + | Component | Value | Ref Range | Performed | Pathologist | | | | | At | Signature | + + + + + + | RED CELL | 5.24 | M/CU MM | | | | COUNT | | | | | + + + + + + | HEMOGLOBIN | 15.3 | GM/DL | | | + + + + + + | HEMATOCRIT | 44.9 | % | | | + + + + + + | MCV | 85.7 | [place] | | | + + + + + + | MCH | 29.1 | PG | | | + + + + + + | MCHC | 34. | GM/DL | | | + + + + + + | RDW | 15.1 (H) | % | | | + + + + + + | PLATELET | 259. (L) | K/CU MM | | | | COUNT | | | | | + + + + + + | MPV | 8.7 | [place] | | | + + + + + + + + | Specimen | + + | | + + + + + + + | Performing | Address | City/State/Zipcode | Phone Number | | Organization | | | | + + + + + | [facility] | [address] | [place] [address] | | | PATHOLOGY | [address] | | | + + + + + CHEMISTRY TESTS 4 (03/14/1995 10:00 AM PDT) + + + + + + | Component | Value | Ref Range | Performed | Pathologist | | | | | At | Signature | + + + + + + | SODIUM,WHOL | 141. | mmol/l | | | | E BLOOD | | | | | + + + + + + | POTASSIUM,W | 3.4 (L) | mmol/l | | | | HOLE BLD | | | | | + + + + + + | GLUCOSE,WHO | 103. (H) | mg/dL | | | | LE BLOOD | | | | | + + + + + + | PH, WHOLE | 7.43 | mg/dL | | | | BLOOD | | | | | + + + + + + | CALC ICA, | 1.28 | mmol/l | | | | WHOLE BLD | | | | | + + + + + + | MAYUR ICA, | 1.26 | mmol/l | | | | WHOLE BLD | | | | | + + + + + + + + | Specimen | + + | | + + + + + + + | Performing | Address | City/State/Zipcode | Phone Number | | Organization | | | | + + + + + | [facility] | [address] | [place] [address] | | | PATHOLOGY | [address] | | | + + + + + CHEMISTRY TESTS 4 (03/14/1995 3:48 AM PDT) + + + + + + | Component | Value | Ref Range | Performed | Pathologist | | | | | At | Signature | + + + + + + | SODIUM,WHOL | 140. | mmol/l | | | | E BLOOD | | | | | + + + + + + | POTASSIUM,W | 4.6 | mmol/l | | | | HOLE BLD | | | | | + + + + + + | GLUCOSE,WHO | 103. (H) | mg/dL | | | | LE BLOOD | | | | | + + + + + + | PH, WHOLE | 7.46 | mg/dL | | | | BLOOD | | | | | + + + + + + | CALC ICA, | 1.33 (H) | mmol/l | | | | WHOLE BLD | | | | | + + + + + + | MAYUR ICA, | 1.29 | mmol/l | | | | WHOLE BLD | | | | | + + + + + + + + | Specimen | + + | | + + + + + + + | Performing | Address | City/State/Zipcode | Phone Number | | Organization | | | | + + + + + | [facility] | [address] | [place] [address] | | | PATHOLOGY | [address] | | | + + + + + BLOOD GASES, ARTERIAL - LAB (03/14/1995 3:48 AM PDT) + + + + + + | Component | Value | Ref Range | Performed | Pathologist | | | | | At | Signature | + + + + + + | PAT TEMP | 36.3 | DEGREES C. | | | | ARTERIAL | | | | | + + + + + + | FIO2 | RA | DEGREES C. | | | | ARTERIAL | | | | | + + + + + + | PH ARTERIAL | 7.47 (H) | DEGREES C. | | | + + + + + + | PCO2 | 27. (L) | MM HG | | | | ARTERIAL | | | | | + + + + + + | PO2 | 92. | MM HG | | | | ARTERIAL | | | | | + + + + + + | BASE EXCESS | -1.8 | MM HG | | | | ARTERIAL | | | | | + + + + + + | HCO3 | 20. (L) | mmol/l | | | | ARTERIAL | | | | | + + + + + + | TOTAL CO2 | 21. (L) | mmol/l | | | | ARTERIAL | | | | | + + + + + + | CALC %O2 | 98. | % O2 Sat | | | | SAT ARTER | | | | | + + + + + + + + | Specimen | + + | | + + + + + + + | Performing | Address | City/State/Zipcode | Phone Number | | Organization | | | | + + + + + | [facility] | [address] | [place] [address] | | | PATHOLOGY | [address] | | | + + + + + THERAPEUTIC DRUG TESTS 1 (03/14/1995 3:46 AM PDT) + +-------+ + + + | Component | Value | Ref Range | Performed | Pathologist | | | | | At | Signature | + +-------+ + + + | DIGOXIN | <0.5 | nG/mL | | | | CONCENTRATI | | | | | | ON | | | | | + +-------+ + + + + + | Specimen | + + | | + + + + + + + | Performing | Address | City/State/Zipcode | Phone Number | | Organization | | | | + + + + + | [facility] | [address] | [place] [address] | | | PATHOLOGY | [address] | | | + + + + + CHEMISTRY TESTS 4 (03/14/1995 3:46 AM PDT) + + + + + + | Component | Value | Ref Range | Performed | Pathologist | | | | | At | Signature | + + + + + + | BUN, PLASMA | 8. | mg/dL | | | | (LAB) | | | | | + + + + + + | CREATININE | 0.3 | mg/dL | | | | PLASMA | | | | | | (LAB) | | | | | + + + + + + + + | Specimen | + + | | + + + + + + + | Performing | Address | City/State/Zipcode | Phone Number | | Organization | | | | + + + + + | [facility] | [address] | [place] [address] | | | PATHOLOGY | [address] | | | + + + + + CBC TESTS 2 (03/14/1995 3:40 AM PDT) + + + + + + | Component | Value | Ref Range | Performed | Pathologist | | | | | At | Signature | + + + + + + | WHITE CELL | 12. | K/CU MM | | | | COUNT | | | | | + + + + + + | RED CELL | 4.73 | M/CU MM | | | | COUNT | | | | | + + + + + + | HEMOGLOBIN | 13.4 | GM/DL | | | + + + + + + | HEMATOCRIT | 40.4 | % | | | + + + + + + | MCV | 85.5 | FL | | | + + + + + + | MCH | 28.4 (L) | PG | | | + + + + + + | MCHC | 33.1 (L) | GM/DL | | | + + + + + + | RDW | 14.5 | % | | | + + + + + + | PLATELET | 266. (L) | K/CU MM | | | | COUNT | | | | | + + + + + + | MPV | 8.6 | FL | | | + + + + + + | NEUTROPHIL | DIFFERENTIAL REPORT TO | % | | | | % | FOLLOW | | | | + + + + + + | BANDS % | 2. | % | | | + + + + + + | LYMPHOCYTES | 24. (L) | % | | | + + + + + + | DIFFERENTIA | 100. | Cells Counted | | | | L, FINAL | | | | | + + + + + + | SEGMENTED | 63. | % | | | | NEUTROPHIL | | | | | + + + + + + | MONOCYTES | 11. (H) | % | | | + + + + + + | PLATELET | LOW | % | | | | ESTIMATE | | | | | + + + + + + | POIKLIOCYTO | SLIGHT | % | | | | SIS | | | | | + + + + + + | CBC | FEW BREE CELLS PRESENT | % | | | | COMMENTS | | | | | + + + + + + | DIFF | OCCASIONAL SCHISTOCYTES | % | | | | COMMENTS | PRESENT | | | | + + + + + + + + | Specimen | + + | | + + + + + + + | Performing | Address | City/State/Zipcode | Phone Number | | Organization | | | | + + + + + | [facility] | [address] | [place] [address] | | | PATHOLOGY | [address] | | | + + + + + CHEMISTRY TESTS 4 (03/14/1995 12:25 AM PDT) + + + + + + | Component | Value | Ref Range | Performed | Pathologist | | | | | At | Signature | + + + + + + | SODIUM,WHOL | 141. | mmol/l | | | | E BLOOD | | | | | + + + + + + | POTASSIUM,W | 4.7 | mmol/l | | | | HOLE BLD | | | | | + + + + + + + + | Specimen | + + | | + + + + + + + | Performing | Address | City/State/Zipcode | Phone Number | | Organization | | | | + + + + + | [facility] | [address] | [place] [address] | | | PATHOLOGY | [address] | | | + + + + + CHEMISTRY TESTS 4 (03/13/1995 6:45 PM PDT) + + + + + + | Component | Value | Ref Range | Performed | Pathologist | | | | | At | Signature | + + + + + + | SODIUM,WHOL | 141. | mmol/l | | | | E BLOOD | | | | | + + + + + + | POTASSIUM,W | 3.4 (L) | mmol/l | | | | HOLE BLD | | | | | + + + + + + | GLUCOSE,WHO | 143. (H) | mg/dL | | | | LE BLOOD | | | | | + + + + + + | PH, WHOLE | 7.42 | mg/dL | | | | BLOOD | | | | | + + + + + + | CALC ICA, | 1.31 (H) | mmol/l | | | | WHOLE BLD | | | | | + + + + + + | MAYUR ICA, | 1.3 | mmol/l | | | | WHOLE BLD | | | | | + + + + + + + + | Specimen | + + | | + + + + + + + | Performing | Address | City/State/Zipcode | Phone Number | | Organization | | | | + + + + + | [facility] | [address] | [place] [address] | | | PATHOLOGY | [address] | | | + + + + + CHEMISTRY TESTS 4 (03/13/1995 3:00 PM PDT) + + + + + + | Component | Value | Ref Range | Performed | Pathologist | | | | | At | Signature | + + + + + + | SODIUM,WHOL | 142. | mmol/l | | | | E BLOOD | | | | | + + + + + + | POTASSIUM,W | 2.9 (L) | mmol/l | | | | HOLE BLD | | | | | + + + + + + | GLUCOSE,WHO | 193. (H) | mg/dL | | | | LE BLOOD | | | | | + + + + + + | PH, WHOLE | 7.39 | mg/dL | | | | BLOOD | | | | | + + + + + + | CALC ICA, | 1.34 (H) | mmol/l | | | | WHOLE BLD | | | | | + + + + + + | MAYUR ICA, | 1.35 (H) | mmol/l | | | | WHOLE BLD | | | | | + + + + + + + + | Specimen | + + | | + + + + + + + | Performing | Address | City/State/Zipcode | Phone Number | | Organization | | | | + + + + + | [facility] | [address] | [place] [address] | | | PATHOLOGY | [address] | | | + + + + + BLOOD GASES, ARTERIAL - LAB (03/13/1995 3:00 PM PDT) + + + + + + | Component | Value | Ref Range | Performed | Pathologist | | | | | At | Signature | + + + + + + | PAT TEMP | 36.3 | DEGREES C. | | | | ARTERIAL | | | | | + + + + + + | FIO2 | RA | DEGREES C. | | | | ARTERIAL | | | | | + + + + + + | PH ARTERIAL | 7.4 | DEGREES C. | | | + + + + + + | PCO2 | 35. | MM HG | | | | ARTERIAL | | | | | + + + + + + | PO2 | 87. | MM HG | | | | ARTERIAL | | | | | + + + + + + | BASE EXCESS | -2.1 | MM HG | | | | ARTERIAL | | | | | + + + + + + | HCO3 | 22. | mmol/l | | | | ARTERIAL | | | | | + + + + + + | TOTAL CO2 | 23. | mmol/l | | | | ARTERIAL | | | | | + + + + + + | CALC %O2 | 97. | % O2 Sat | | | | SAT ARTER | | | | | + + + + + + + + | Specimen | + + | | + + + + + + + | Performing | Address | City/State/Zipcode | Phone Number | | Organization | | | | + + + + + | [facility] | [address] | [place] [address] | | | PATHOLOGY | [address] | | | + + + + + CHEMISTRY TESTS 03/13/1995 4:06 AM PDT) + + + + + + | Component | Value | Ref Range | Performed | Pathologist | | | | | At | Signature | + + + + + + | SODIUM,WHOL | 143. | mmol/l | | | | E BLOOD | | | | | + + + + + + | POTASSIUM,W | 4.1 | mmol/l | | | | HOLE BLD | | | | | + + + + + + | GLUCOSE,WHO | 127. (H) | mg/dL | | | | LE BLOOD | | | | | + + + + + + | PH, WHOLE | 7.38 | mg/dL | | | | BLOOD | | | | | + + + + + + | CALC ICA, | 1.39 (H) | mmol/l | | | | WHOLE BLD | | | | | + + + + + + | MAYUR ICA, | 1.4 (H) | mmol/l | | | | WHOLE BLD | | | | | + + + + + + + + | Specimen | + + | | + + + + + + + | Performing | Address | City/State/Zipcode | Phone Number | | Organization | | | | + + + + + | [facility] | [id number] | [place] [address] | | | PATHOLOGY | [address] | | | + + + + + BLOOD GASES, ARTERIAL - LAB (03/13/1995 4:06 AM PDT) + + + + + + | Component | Value | Ref Range | Performed | Pathologist | | | | | At | Signature | + + + + + + | PAT TEMP | 36. | [facility] | | | | ARTERIAL | | | | | + + + + + + | FIO2 | 0.5 | [facility] | | | | ARTERIAL | | | | | + + + + + + | PH ARTERIAL | 7.4 | [facility] | | | + + + + + + | PCO2 | 39. | MM HG | | | | ARTERIAL | | | | | + + + + + + | PO2 | 202. (H) | MM HG | | | | ARTERIAL | | | | | + + + + + + | BASE EXCESS | -0.1 | MM HG | | | | ARTERIAL | | | | | + + + + + + | HCO3 | 25. | mmol/l | | | | ARTERIAL | | | | | + + + + + + | TOTAL CO2 | 26. | mmol/l | | | | ARTERIAL | | | | | + + + + + + | CALC %O2 | 99.7 | % O2 Sat | | | | SAT ARTER | | | | | + + + + + + + + | Specimen | + + | | + + + + + + + | Performing | Address | City/State/Zipcode | Phone Number | | Organization | | | | + + + + + | [facility] | [address] | [place] [address] | | | PATHOLOGY | [address] | | | + + + + + CHEMISTRY TESTS 4 03/13/1995 4:03 AM PDT) + + + + + + | Component | Value | Ref Range | Performed | Pathologist | | | | | At | Signature | + + + + + + | BUN, PLASMA | 12. | mg/dL | | | | (LAB) | | | | | + + + + + + | CREATININE | 0.3 | mg/dL | | | | PLASMA | | | | | | (LAB) | | | | | + + + + + + + + | Specimen | + + | | + + + + + + + | Performing | Address | City/State/Zipcode | Phone Number | | Organization | | | | + + + + + | [facility] | [address] | [place] [address] | | | PATHOLOGY | [address] | | | + + + + + CBC TESTS 2 (03/13/1995 4:00 AM PDT) + + + + + + | Component | Value | Ref Range | Performed | Pathologist | | | | | At | Signature | + + + + + + | WHITE CELL | 11.9 | K/CU MM | | | | COUNT | | | | | + + + + + + | RED CELL | 4.93 | M/CU MM | | | | COUNT | | | | | + + + + + + | HEMOGLOBIN | 14.1 | GM/DL | | | + + + + + + | HEMATOCRIT | 42.4 | % | | | + + + + + + | MCV | 85.9 | FL | | | + + + + + + | MCH | 28.7 | PG | | | + + + + + + | MCHC | 33.4 | GM/DL | | | + + + + + + | RDW | 14.1 | % | | | + + + + + + | PLATELET | 208. (L) | K/CU MM | | | | COUNT | | | | | + + + + + + | MPV | 8.4 | FL | | | + + + + + + | NEUTROPHIL | 88. (H) | % | | | | % | | | | | + + + + + + | NEUTROPHIL | FINAL DIFF, SMEAR | % | | | | % | REVIEWED (H) | | | | + + + + + + | LYMPHOCYTE | 10. (L) | % | | | | % | | | | | + + + + + + | MONOCYTE % | 2. | % | | | + + + + + + | EOS % | 0. | % | | | + + + + + + | BASO % | 0. | % | | | + + + + + + | NEUTROPHIL | 10.5 (H) | K/CU MM | | | | # | | | | | + + + + + + | LYMPHOCYTE | 1.2 (L) | K/CU MM | | | | # | | | | | + + + + + + | MONOCYTE # | 0.2 | K/CU MM | | | + + + + + + | EOS # | 0. (L) | K/CU MM | | | + + + + + + | BASO # | 0. | K/CU MM | | | + + + + + + + + | Specimen | + + | | + + + + + + + | Performing | Address | City/State/Zipcode | Phone Number | | Organization | | | | + + + + + | [facility] | [address] | [place] [address] | | | PATHOLOGY | [address] | | | + + + + + BLOOD GASES, ARTERIAL - LAB (03/12/1995 10:35 PM PDT) + + + + + + | Component | Value | Ref Range | Performed | Pathologist | | | | | At | Signature | + + + + + + | PAT TEMP | 37. | [facility] | | | | ARTERIAL | | | | | + + + + + + | FIO2 | 65% | [facility] | | | | ARTERIAL | | | | | + + + + + + | PH ARTERIAL | 7.34 (L) | [facility] | | | + + + + + + | PCO2 | 43. | MM HG | | | | ARTERIAL | | | | | + + + + + + | PO2 | 263. (H) | MM HG | | | | ARTERIAL | | | | | + + + + + + | BASE EXCESS | -1.8 | MM HG | | | | ARTERIAL | | | | | + + + + + + | HCO3 | 23. | mmol/l | | | | ARTERIAL | | | | | + + + + + + | TOTAL CO2 | 25. | mmol/l | | | | ARTERIAL | | | | | + + + + + + | CALC %O2 | 99.8 | % O2 Sat | | | | SAT ARTER | | | | | + + + + + + + + | Specimen | + + | | + + + + + + + | Performing | Address | City/State/Zipcode | Phone Number | | Organization | | | | + + + + + | [facility] | [address] | [place] [address] | | | PATHOLOGY | [address] | | | + + + + + BLOOD GASES, ARTERIAL - LAB (03/12/1995 9:15 PM PDT) + + + + + + | Component | Value | Ref Range | Performed | Pathologist | | | | | At | Signature | + + + + + + | PAT TEMP | 36.5 | [facility] | | | | ARTERIAL | | | | | + + + + + + | FIO2 | 38% | [facility] | | | | ARTERIAL | | | | | + + + + + + | PH ARTERIAL | 7.36 (L) | [facility] | | | + + + + + + | PCO2 | 43. | MM HG | | | | ARTERIAL | | | | | + + + + + + | PO2 | 101. | MM HG | | | | ARTERIAL | | | | | + + + + + + | BASE EXCESS | -1. | MM HG | | | | ARTERIAL | | | | | + + + + + + | HCO3 | 24. | mmol/l | | | | ARTERIAL | | | | | + + + + + + | TOTAL CO2 | 26. | mmol/l | | | | ARTERIAL | | | | | + + + + + + | CALC %O2 | 97.6 | % O2 Sat | | | | SAT ARTER | | | | | + + + + + + + + | Specimen | + + | | + + + + + + + | Performing | Address | City/State/Zipcode | Phone Number | | Organization | | | | + + + + + | [facility] | [address] | [place] [address] | | | PATHOLOGY | [address] | | | + + + + + CBC TESTS 2 (03/12/1995 8:05 PM PDT) + + + + + + | Component | Value | Ref Range | Performed | Pathologist | | | | | At | Signature | + + + + + + | HEMATOCRIT | 45.6 | % | | | + + + + + + + + | Specimen | + + | | + + + + + + + | Performing | Address | City/State/Zipcode | Phone Number | | Organization | | | | + + + + + | [facility] | [address] | [place] [address] | | | PATHOLOGY | [address] | | | + + + + + CHEMISTRY TESTS 4 (03/12/1995 8:05 PM PDT) + + + + + + | Component | Value | Ref Range | Performed | Pathologist | | | | | At | Signature | + + + + + + | SODIUM,WHOL | 146. | mmol/l | | | | E BLOOD | | | | | + + + + + + | POTASSIUM,W | 4.8 (H) | mmol/l | | | | HOLE BLD | | | | | + + + + + + + + | Specimen | + + | | + + + + + + + | Performing | Address | City/State/Zipcode | Phone Number | | Organization | | | | + + + + + | [facility] | [address] | [place] [address] | | | PATHOLOGY | [address] | | | + + + + + BLOOD GASES, ARTERIAL - LAB (03/12/1995 8:05 PM PDT) + + + + + + | Component | Value | Ref Range | Performed | Pathologist | | | | | At | Signature | + + + + + + | PAT TEMP | 36.4 | [facility] | | | | ARTERIAL | | | | | + + + + + + | FIO2 | 38% | [facility] | | | | ARTERIAL | | | | | + + + + + + | PH ARTERIAL | 7.38 | [facility] | | | + + + + + + | PCO2 | 43. | MM HG | | | | ARTERIAL | | | | | + + + + + + | PO2 | 112. (H) | MM HG | | | | ARTERIAL | | | | | + + + + + + | BASE EXCESS | 0.5 | MM HG | | | | ARTERIAL | | | | | + + + + + + | HCO3 | 26. | mmol/l | | | | ARTERIAL | | | | | + + + + + + | TOTAL CO2 | 27. | mmol/l | | | | ARTERIAL | | | | | + + + + + + | CALC %O2 | 98.3 | % O2 Sat | | | | SAT ARTER | | | | | + + + + + + + + | Specimen | + + | | + + + + + + + | Performing | Address | City/State/Zipcode | Phone Number | | Organization | | | | + + + + + | [facility] | [address] | [place], [place] [address] | | | PATHOLOGY | [address] | | | + + + + + CHEMISTRY TESTS 4 (03/12/1995 6:00 PM PDT) + + + + + + | Component | Value | Ref Range | Performed | Pathologist | | | | | At | Signature | + + + + + + | SODIUM,WHOL | 147. | mmol/l | | | | E BLOOD | | | | | + + + + + + | POTASSIUM,W | 4.2 | mmol/l | | | | HOLE BLD | | | | | + + + + + + + + | Specimen | + + | | + + + + + + + | Performing | Address | City/State/Zipcode | Phone Number | | Organization | | | | + + + + + | [facility] | [address] | [place] [address] | | | PATHOLOGY | [address] | | | + + + + + BLOOD GASES, ARTERIAL - LAB (03/12/1995 6:00 PM PDT) + + + + + + | Component | Value | Ref Range | Performed | Pathologist | | | | | At | Signature | + + + + + + | PAT TEMP | 36.6 | [facility] | | | | ARTERIAL | | | | | + + + + + + | FIO2 | 40% | [facility] | | | | ARTERIAL | | | | | + + + + + + | PH ARTERIAL | 7.39 | [facility] | | | + + + + + + | PCO2 | 40. | MM HG | | | | ARTERIAL | | | | | + + + + + + | PO2 | 127. (H) | MM HG | | | | ARTERIAL | | | | | + + + + + + | BASE EXCESS | 0.2 | MM HG | | | | ARTERIAL | | | | | + + + + + + | HCO3 | 25. | mmol/l | | | | ARTERIAL | | | | | + + + + + + | TOTAL CO2 | 26. | mmol/l | | | | ARTERIAL | | | | | + + + + + + | CALC %O2 | 98.9 | % O2 Sat | | | | SAT ARTER | | | | | + + + + + + + + | Specimen | + + | | + + + + + + + | Performing | Address | City/State/Zipcode | Phone Number | | Organization | | | | + + + + + | [facility] | [address] | [place] [address] | | | PATHOLOGY | [address] | | | + + + + + BLOOD GASES, ARTERIAL - LAB (03/12/1995 4:35 PM PDT) + + + + + + | Component | Value | Ref Range | Performed | Pathologist | | | | | At | Signature | + + + + + + | PAT TEMP | 36.6 | [facility] | | | | ARTERIAL | | | | | + + + + + + | FIO2 | 40% | [facility] | | | | ARTERIAL | | | | | + + + + + + | PH ARTERIAL | 7.37 | [facility] | | | + + + + + + | PCO2 | 43. | MM HG | | | | ARTERIAL | | | | | + + + + + + | PO2 | 125. (H) | MM HG | | | | ARTERIAL | | | | | + + + + + + | BASE EXCESS | -0.4 | MM HG | | | | ARTERIAL | | | | | + + + + + + | HCO3 | 25. | mmol/l | | | | ARTERIAL | | | | | + + + + + + | TOTAL CO2 | 26. | mmol/l | | | | ARTERIAL | | | | | + + + + + + | CALC %O2 | 98.7 | % O2 Sat | | | | SAT ARTER | | | | | + + + + + + + + | Specimen | + + | | + + + + + + + | Performing | Address | City/State/Zipcode | Phone Number | | Organization | | | | + + + + + | [facility] | [address] | [place] [address] | | | PATHOLOGY | [address] | | | + + + + + BLOOD GASES, ARTERIAL - LAB (03/12/1995 3:15 PM PDT) + + + + + + | Component | Value | Ref Range | Performed | Pathologist | | | | | At | Signature | + + + + + + | PAT TEMP | 36.6 | [facility] | | | | ARTERIAL | | | | | + + + + + + | FIO2 | 40% | [facility] | | | | ARTERIAL | | | | | + + + + + + | PH ARTERIAL | 7.41 | [facility] | | | + + + + + + | PCO2 | 36. | MM HG | | | | ARTERIAL | | | | | + + + + + + | PO2 | 132. (H) | MM HG | | | | ARTERIAL | | | | | + + + + + + | BASE EXCESS | -0.8 | MM HG | | | | ARTERIAL | | | | | + + + + + + | HCO3 | 23. | mmol/l | | | | ARTERIAL | | | | | + + + + + + | TOTAL CO2 | 24. | mmol/l | | | | ARTERIAL | | | | | + + + + + + | CALC %O2 | 99.1 | % O2 Sat | | | | SAT ARTER | | | | | + + + + + + + + | Specimen | + + | | + + + + + + + | Performing | Address | City/State/Zipcode | Phone Number | | Organization | | | | + + + + + | [facility] | [address] | [place] [address] | | | PATHOLOGY | [address] | | | + + + + + CHEMISTRY TESTS 4 (03/12/1995 2:00 PM PDT) + + + + + + | Component | Value | Ref Range | Performed | Pathologist | | | | | At | Signature | + + + + + + | SODIUM,WHOL | 147. | mmol/l | | | | E BLOOD | | | | | + + + + + + | POTASSIUM,W | 4.5 | mmol/l | | | | HOLE BLD | | | | | + + + + + + + + | Specimen | + + | | + + + + + + + | Performing | Address | City/State/Zipcode | Phone Number | | Organization | | | | + + + + + | [facility] | [address] | [place] [address] | | | PATHOLOGY | [address] | | | + + + + + BLOOD GASES, ARTERIAL - LAB (03/12/1995 2:00 PM PDT) + + + + + + | Component | Value | Ref Range | Performed | Pathologist | | | | | At | Signature | + + + + + + | PAT TEMP | 36.6 | [facility] | | | | ARTERIAL | | | | | + + + + + + | FIO2 | 40% | [facility] | | | | ARTERIAL | | | | | + + + + + + | PH ARTERIAL | 7.41 | [facility] | | | + + + + + + | PCO2 | 37. | MM HG | | | | ARTERIAL | | | | | + + + + + + | PO2 | 106. | MM HG | | | | ARTERIAL | | | | | + + + + + + | BASE EXCESS | -0.5 | MM HG | | | | ARTERIAL | | | | | + + + + + + | HCO3 | 23. | mmol/l | | | | ARTERIAL | | | | | + + + + + + | TOTAL CO2 | 24. | mmol/l | | | | ARTERIAL | | | | | + + + + + + | CALC %O2 | 98.3 | % O2 Sat | | | | SAT ARTER | | | | | + + + + + + + + | Specimen | + + | | + + + + + + + | Performing | Address | City/State/Zipcode | Phone Number | | Organization | | | | + + + + + | [facility] | [address] | [place] [address] | | | PATHOLOGY | [address] | | | + + + + + BLOOD GASES, ARTERIAL - LAB (03/12/1995 12:15 PM PDT) + + + + + + | Component | Value | Ref Range | Performed | Pathologist | | | | | At | Signature | + + + + + + | PAT TEMP | 36.6 | [facility] | | | | ARTERIAL | | | | | + + + + + + | FIO2 | 40. | [facility] | | | | ARTERIAL | | | | | + + + + + + | PH ARTERIAL | 7.42 | [facility] | | | + + + + + + | PCO2 | 38. | MM HG | | | | ARTERIAL | | | | | + + + + + + | PO2 | 179. (H) | MM HG | | | | ARTERIAL | | | | | + + + + + + | BASE EXCESS | 0.7 | MM HG | | | | ARTERIAL | | | | | + + + + + + | HCO3 | 25. | mmol/l | | | | ARTERIAL | | | | | + + + + + + | TOTAL CO2 | 26. | mmol/l | | | | ARTERIAL | | | | | + + + + + + | CALC %O2 | 99.6 | % O2 Sat | | | | SAT ARTER | | | | | + + + + + + + + | Specimen | + + | | + + + + + + + | Performing | Address | City/State/Zipcode | Phone Number | | Organization | | | | + + + + + | [facility] | [address] | [place] [address] | | | PATHOLOGY | [address] | | | + + + + + CHEMISTRY TESTS 4 (03/12/1995 10:00 AM PDT) + + + + + + | Component | Value | Ref Range | Performed | Pathologist | | | | | At | Signature | + + + + + + | SODIUM,WHOL | 148. | mmol/l | | | | E BLOOD | | | | | + + + + + + | POTASSIUM,W | 3.7 | mmol/l | | | | HOLE BLD | | | | | + + + + + + | GLUCOSE,WHO | 95. (H) | mg/dL | | | | LE BLOOD | | | | | + + + + + + | PH, WHOLE | 7.54 | mg/dL | | | | BLOOD | | | | | + + + + + + | CALC ICA, | 1.29 (H) | mmol/l | | | | WHOLE BLD | | | | | + + + + + + | MAYUR ICA, | 1.2 | mmol/l | | | | WHOLE BLD | | | | | + + + + + + + + | Specimen | + + | | + + + + + + + | Performing | Address | City/State/Zipcode | Phone Number | | Organization | | | | + + + + + | [facility] | [address] | [place] [address] | | | PATHOLOGY | [address] | | | + + + + + BLOOD GASES, ARTERIAL - LAB (03/12/1995 10:00 AM PDT) + + + + + + | Component | Value | Ref Range | Performed | Pathologist | | | | | At | Signature | + + + + + + | PAT TEMP | 36.8 | [facility] | | | | ARTERIAL | | | | | + + + + + + | FIO2 | 40% | [facility] | | | | ARTERIAL | | | | | + + + + + + | PH ARTERIAL | 7.54 (H) | [facility] | | | + + + + + + | PCO2 | 27. (L) | MM HG | | | | ARTERIAL | | | | | + + + + + + | PO2 | 74. (L) | MM HG | | | | ARTERIAL | | | | | + + + + + + | BASE EXCESS | 2.7 | MM HG | | | | ARTERIAL | | | | | + + + + + + | HCO3 | 24. | mmol/l | | | | ARTERIAL | | | | | + + + + + + | TOTAL CO2 | 24. | mmol/l | | | | ARTERIAL | | | | | + + + + + + | CALC %O2 | 96.7 | % O2 Sat | | | | SAT ARTER | | | | | + + + + + + + + | Specimen | + + | | + + + + + + + | Performing | Address | City/State/Zipcode | Phone Number | | Organization | | | | + + + + + | [facility] | [address] | [place] [address] | | | PATHOLOGY | [address] | | | + + + + + CHEMISTRY TESTS 4 (03/12/1995 7:50 AM PDT) + + + + + + | Component | Value | Ref Range | Performed | Pathologist | | | | | At | Signature | + + + + + + | SODIUM,WHOL | 148. | mmol/l | | | | E BLOOD | | | | | + + + + + + | POTASSIUM,W | 4.2 | mmol/l | | | | HOLE BLD | | | | | + + + + + + | GLUCOSE,WHO | 105. (H) | mg/dL | | | | LE BLOOD | | | | | + + + + + + | PH, WHOLE | 7.52 | mg/dL | | | | BLOOD | | | | | + + + + + + | CALC ICA, | 1.36 (H) | mmol/l | | | | WHOLE BLD | | | | | + + + + + + | MAYUR ICA, | 1.28 | mmol/l | | | | WHOLE BLD | | | | | + + + + + + + + | Specimen | + + | | + + + + + + + | Performing | Address | City/State/Zipcode | Phone Number | | Organization | | | | + + + + + | [facility] | [address] | [place] [address] | | | PATHOLOGY | [address] | | | + + + + + BLOOD GASES, ARTERIAL - LAB (03/12/1995 7:50 AM PDT) + + + + + + | Component | Value | Ref Range | Performed | Pathologist | | | | | At | Signature | + + + + + + | PAT TEMP | 36.6 | [facility] | | | | ARTERIAL | | | | | + + + + + + | FIO2 | 40% | [facility] | | | | ARTERIAL | | | | | + + + + + + | PH ARTERIAL | 7.53 (H) | [facility] | | | + + + + + + | PCO2 | 33. | MM HG | | | | ARTERIAL | | | | | + + + + + + | PO2 | 55. (L) | MM HG | | | | ARTERIAL | | | | | + + + + + + | BASE EXCESS | 5.3 | MM HG | | | | ARTERIAL | | | | | + + + + + + | HCO3 | 27. | mmol/l | | | | ARTERIAL | | | | | + + + + + + | TOTAL CO2 | 28. | mmol/l | | | | ARTERIAL | | | | | + + + + + + | CALC %O2 | 92.1 | % O2 Sat | | | | SAT ARTER | | | | | + + + + + + + + | Specimen | + + | | + + + + + + + | Performing | Address | City/State/Zipcode | Phone Number | | Organization | | | | + + + + + | [facility] | [address] | [place] [address] | | | PATHOLOGY | [address] | | | + + + + + CHEMISTRY TESTS 4 (03/12/1995 5:58 AM PDT) + + + + + + | Component | Value | Ref Range | Performed | Pathologist | | | | | At | Signature | + + + + + + | SODIUM,WHOL | 150. (H) | mmol/l | | | | E BLOOD | | | | | + + + + + + | POTASSIUM,W | 5. (H) | mmol/l | | | | HOLE BLD | | | | | + + + + + + + + | Specimen | + + | | + + + + + + + | Performing | Address | City/State/Zipcode | Phone Number | | Organization | | | | + + + + + | [facility] | [address] | [place] [address] | | | PATHOLOGY | [address] | | | + + + + + BLOOD GASES, ARTERIAL - LAB (03/12/1995 5:58 AM PDT) + + + + + + | Component | Value | Ref Range | Performed | Pathologist | | | | | At | Signature | + + + + + + | PAT TEMP | 36.5 | [facility] | | | | ARTERIAL | | | | | + + + + + + | FIO2 | 40. | [facility] | | | | ARTERIAL | | | | | + + + + + + | PH ARTERIAL | 7.35 (L) | [facility] | | | + + + + + + | PCO2 | 54. (H) | MM HG | | | | ARTERIAL | | | | | + + + + + + | PO2 | 77. (L) | MM HG | | | | ARTERIAL | | | | | + + + + + + | BASE EXCESS | 3.7 | MM HG | | | | ARTERIAL | | | | | + + + + + + | HCO3 | 30. (H) | mmol/l | | | | ARTERIAL | | | | | + + + + + + | TOTAL CO2 | 32. (H) | mmol/l | | | | ARTERIAL | | | | | + + + + + + | CALC %O2 | 94.5 | % O2 Sat | | | | SAT ARTER | | | | | + + + + + + + + | Specimen | + + | | + + + + + + + | Performing | Address | City/State/Zipcode | Phone Number | | Organization | | | | + + + + + | [facility] | [address] | [place] [address] | | | PATHOLOGY | [address] | | | + + + + + CHEMISTRY TESTS 4 03/12/1995 4:45 AM PDT) + + + + + + | Component | Value | Ref Range | Performed | Pathologist | | | | | At | Signature | + + + + + + | SODIUM,WHOL | 151. (H) | mmol/l | | | | E BLOOD | | | | | + + + + + + | POTASSIUM,W | 4. | mmol/l | | | | HOLE BLD | | | | | + + + + + + | GLUCOSE,WHO | 104. (H) | mg/dL | | | | LE BLOOD | | | | | + + + + + + | PH, WHOLE | 7.33 | mg/dL | | | | BLOOD | | | | | + + + + + + | CALC ICA, | 1.26 | mmol/l | | | | WHOLE BLD | | | | | + + + + + + | MAYUR ICA, | 1.31 | mmol/l | | | | WHOLE BLD | | | | | + + + + + + + + | Specimen | + + | | + + + + + + + | Performing | Address | City/State/Zipcode | Phone Number | | Organization | | | | + + + + + | [facility] | [address] | [place] [address] | | | PATHOLOGY | [address] | | | + + + + + BLOOD GASES, ARTERIAL - LAB (03/12/1995 4:45 AM PDT) + + + + + + | Component | Value | Ref Range | Performed | Pathologist | | | | | At | Signature | + + + + + + | PAT TEMP | 36.5 | [facility] | | | | ARTERIAL | | | | | + + + + + + | FIO2 | 40. | [facility] | | | | ARTERIAL | | | | | + + + + + + | PH ARTERIAL | 7.34 (L) | [facility] | | | + + + + + + | PCO2 | 57. (H) | MM HG | | | | ARTERIAL | | | | | + + + + + + | PO2 | 71. (L) | MM HG | | | | ARTERIAL | | | | | + + + + + + | BASE EXCESS | 3.7 | MM HG | | | | ARTERIAL | | | | | + + + + + + | HCO3 | 31. (H) | mmol/l | | | | ARTERIAL | | | | | + + + + + + | TOTAL CO2 | 32. (H) | mmol/l | | | | ARTERIAL | | | | | + + + + + + | CALC %O2 | 92.8 | % O2 Sat | | | | SAT ARTER | | | | | + + + + + + + + | Specimen | + + | | + + + + + + + | Performing | Address | City/State/Zipcode | Phone Number | | Organization | | | | + + + + + | [facility] | [address] | [place] [address] | | | PATHOLOGY | [address] | | | + + + + + CBC TESTS 2 (03/12/1995 4:30 AM PDT) + + + + + + | Component | Value | Ref Range | Performed | Pathologist | | | | | At | Signature | + + + + + + | WHITE CELL | 14.5 | K/CU MM | | | | COUNT | | | | | + + + + + + | RED CELL | 5.28 | M/CU MM | | | | COUNT | | | | | + + + + + + | HEMOGLOBIN | 15.4 | GM/DL | | | + + + + + + | HEMATOCRIT | 45. | % | | | + + + + + + | MCV | 85.2 | FL | | | + + + + + + | MCH | 29.1 | PG | | | + + + + + + | MCHC | 34.2 | GM/DL | | | + + + + + + | RDW | 14. | % | | | + + + + + + | PLATELET | 233. (L) | K/CU MM | | | | COUNT | | | | | + + + + + + | MPV | 8.4 | FL | | | + + + + + + | NEUTROPHIL | DIFFERENTIAL REPORT TO | % | | | | % | FOLLOW | | | | + + + + + + | BANDS % | 8. (H) | % | | | + + + + + + | LYMPHOCYTES | 22. (L) | % | | | + + + + + + | DIFFERENTIA | 100. | Cells Counted | | | | L, FINAL | | | | | + + + + + + | SEGMENTED | 58. | % | | | | NEUTROPHIL | | | | | + + + + + + | MONOCYTES | 12. (H) | % | | | + + + + + + | PLATELET | LOW | % | | | | ESTIMATE | | | | | + + + + + + | ANISOCYTOSI | SLIGHT | % | | | | S | | | | | + + + + + + + + | Specimen | + + | | + + + + + + + | Performing | Address | City/State/Zipcode | Phone Number | | Organization | | | | + + + + + | [facility] | [address] | [place] [address] | | | PATHOLOGY | [address] | | | + + + + + CHEMISTRY TESTS 4 (03/12/1995 4:30 AM PDT) + + + + + + | Component | Value | Ref Range | Performed | Pathologist | | | | | At | Signature | + + + + + + | BUN, PLASMA | 15. | mg/dL | | | | (LAB) | | | | | + + + + + + | CREATININE | 0.3 | mg/dL | | | | PLASMA | | | | | | (LAB) | | | | | + + + + + + + + | Specimen | + + | | + + + + + + + | Performing | Address | City/State/Zipcode | Phone Number | | Organization | | | | + + + + + | [facility] | [address] | [place], [place] [address] | | | PATHOLOGY | [address] | | | + + + + + BLOOD GASES, ARTERIAL - LAB (03/12/1995 2:51 AM PDT) + + + + + + | Component | Value | Ref Range | Performed | Pathologist | | | | | At | Signature | + + + + + + | PAT TEMP | 37. | [facility] | | | | ARTERIAL | | | | | + + + + + + | FIO2 | 40. | [facility] | | | | ARTERIAL | | | | | + + + + + + | PH ARTERIAL | 7.35 (L) | [facility] | | | + + + + + + | PCO2 | 53. (H) | MM HG | | | | ARTERIAL | | | | | + + + + + + | PO2 | 65. (L) | MM HG | | | | ARTERIAL | | | | | + + + + + + | BASE EXCESS | 2.9 | [facility] | | | | ARTERIAL | | | | | + + + + + + | HCO3 | 29. (H) | mmol/l | | | | ARTERIAL | | | | | + + + + + + | TOTAL CO2 | 31. (H) | mmol/l | | | | ARTERIAL | | | | | + + + + + + | CALC %O2 | 90.9 | % O2 Sat | | | | SAT ARTER | | | | | + + + + + + + + | Specimen | + + | | + + + + + + + | Performing | Address | City/State/Zipcode | Phone Number | | Organization | | | | + + + + + | [facility] | [id number] | [place] [address] | | | PATHOLOGY | [address] | | | + + + + + BLOOD GASES, ARTERIAL - LAB (03/12/1995 1:40 AM PDT) + + + + + + | Component | Value | Ref Range | Performed | Pathologist | | | | | At | Signature | + + + + + + | PAT TEMP | 38. | [facility] | | | | ARTERIAL | | | | | + + + + + + | FIO2 | 40. | [facility] | | | | ARTERIAL | | | | | + + + + + + | PH ARTERIAL | 7.38 | [facility] | | | + + + + + + | PCO2 | 43. | [facility] | | | | ARTERIAL | | | | | + + + + + + | PO2 | 94. | [facility] | | | | ARTERIAL | | | | | + + + + + + | BASE EXCESS | 0.9 | [facility] | | | | ARTERIAL | | | | | + + + + + + | HCO3 | 26. | mmol/l | | | | ARTERIAL | | | | | + + + + + + | TOTAL CO2 | 27. | mmol/l | | | | ARTERIAL | | | | | + + + + + + | CALC %O2 | 97.1 | % O2 Sat | | | | SAT ARTER | | | | | + + + + + + + + | Specimen | + + | | + + + + + + + | Performing | Address | City/State/Zipcode | Phone Number | | Organization | | | | + + + + + | [facility] | [address] | [place] [address] | | | PATHOLOGY | [address] | | | + + + + + CHEMISTRY TESTS 4 (03/11/1995 11:47 PM PDT) + + + + + + | Component | Value | Ref Range | Performed | Pathologist | | | | | At | Signature | + + + + + + | SODIUM,WHOL | 149. (H) | mmol/l | | | | E BLOOD | | | | | + + + + + + | POTASSIUM,W | 4.6 | mmol/l | | | | HOLE BLD | | | | | + + + + + + | GLUCOSE,WHO | 113. (H) | mg/dL | | | | LE BLOOD | | | | | + + + + + + | PH, WHOLE | 7.47 | mg/dL | | | | BLOOD | | | | | + + + + + + | CALC ICA, | 1.25 | mmol/l | | | | WHOLE BLD | | | | | + + + + + + | MAYUR ICA, | 1.21 | mmol/l | | | | WHOLE BLD | | | | | + + + + + + + + | Specimen | + + | | + + + + + + + | Performing | Address | City/State/Zipcode | Phone Number | | Organization | | | | + + + + + | [facility] | [phone] | [place] [address] | | | PATHOLOGY | [address] | | | + + + + + BLOOD GASES, ARTERIAL - LAB (03/11/1995 11:47 PM PDT) + + + + + + | Component | Value | Ref Range | Performed | Pathologist | | | | | At | Signature | + + + + + + | PAT TEMP | 37.6 | [facility] | | | | ARTERIAL | | | | | + + + + + + | FIO2 | 40. | [facility] | | | | ARTERIAL | | | | | + + + + + + | PH ARTERIAL | 7.46 (H) | [facility] | | | + + + + + + | PCO2 | 38. | [facility] | | | | ARTERIAL | | | | | + + + + + + | PO2 | 89. | [facility] | | | | ARTERIAL | | | | | + + + + + + | BASE EXCESS | 4. | [facility] | | | | ARTERIAL | | | | | + + + + + + | HCO3 | 27. | mmol/l | | | | ARTERIAL | | | | | + + + + + + | TOTAL CO2 | 28. | mmol/l | | | | ARTERIAL | | | | | + + + + + + | CALC %O2 | 97.1 | % O2 Sat | | | | SAT ARTER | | | | | + + + + + + + + | Specimen | + + | | + + + + + + + | Performing | Address | City/State/Zipcode | Phone Number | | Organization | | | | + + + + + | [facility] | [address] | [place] [address] | | | PATHOLOGY | [address] | | | + + + + + CHEMISTRY TESTS 4 (03/11/1995 5:50 PM PDT) + + + + + + | Component | Value | Ref Range | Performed | Pathologist | | | | | At | Signature | + + + + + + | SODIUM,WHOL | 153. (H) | mmol/l | | | | E BLOOD | | | | | + + + + + + | POTASSIUM,W | 4.9 (H) | mmol/l | | | | HOLE BLD | | | | | + + + + + + | GLUCOSE,WHO | 112. (H) | mg/dL | | | | LE BLOOD | | | | | + + + + + + | PH, WHOLE | 7.4 | mg/dL | | | | BLOOD | | | | | + + + + + + | CALC ICA, | 1.24 | mmol/l | | | | WHOLE BLD | | | | | + + + + + + | MAYUR ICA, | 1.25 | mmol/l | | | | WHOLE BLD | | | | | + + + + + + + + | Specimen | + + | | + + + + + + + | Performing | Address | City/State/Zipcode | Phone Number | | Organization | | | | + + + + + | [facility] | [phone] | [place] [address] | | | PATHOLOGY | [address] | | | + + + + + BLOOD GASES, VENOUS - LAB (03/11/1995 5:50 PM PDT) + + + + + + | Component | Value | Ref Range | Performed | Pathologist | | | | | At | Signature | + + + + + + | PAT TEMP | 36.6 | [facility] | | | | VENOUS | | | | | + + + + + + | FIO2 VENOUS | 40% | [facility] | | | + + + + + + | PH VENOUS | 7.4 | [facility] | | | + + + + + + | PCO2 VENOUS | 45. | [facility] | | | + + + + + + | PO2 VENOUS | 68. (H) | [facility] | | | + + + + + + | BASE EXCESS | 3.2 | [facility] | | | | VENOUS | | | | | + + + + + + | HCO3 VENOUS | 28. | mmol/l | | | + + + + + + | TOTAL CO2 | 30. (H) | mmol/l | | | | VENOUS | | | | | + + + + + + | CALC %O2 | 93.5 | % O2 Sat | | | | SAT VENOUS | | | | | + + + + + + + + | Specimen | + + | | + + + + + + + | Performing | Address | City/State/Zipcode | Phone Number | | Organization | | | | + + + + + | [facility] | [address] | [place] [address] | | | PATHOLOGY | [address] | | | + + + + + CBC TESTS 2 (03/11/1995 5:00 PM PDT) + + + + + + | Component | Value | Ref Range | Performed | Pathologist | | | | | At | Signature | + + + + + + | HEMATOCRIT | 46.4 | % | | | + + + + + + + + | Specimen | + + | | + + + + + + + | Performing | Address | City/State/Zipcode | Phone Number | | Organization | | | | + + + + + | [facility] | [address] | [place] [address] | | | PATHOLOGY | [address] | | | + + + + + CHEMISTRY TESTS 4 (03/11/1995 5:00 PM PDT) + + + + + + | Component | Value | Ref Range | Performed | Pathologist | | | | | At | Signature | + + + + + + | SODIUM,WHOL | 153. (H) | mmol/l | | | | E BLOOD | | | | | + + + + + + | POTASSIUM,W | 7.1 (*) | mmol/l | | | | HOLE BLD | | | | | + + + + + + | POTASSIUM,W | PHONED (*) | mmol/l | | | | HOLE BLD | | | | | + + + + + + | GLUCOSE,WHO | 114. (H) | mg/dL | | | | LE BLOOD | | | | | + + + + + + | PH, WHOLE | 7.33 | mg/dL | | | | BLOOD | | | | | + + + + + + | CALC ICA, | 1.21 | mmol/l | | | | WHOLE BLD | | | | | + + + + + + | MAYUR ICA, | 1.25 | mmol/l | | | | WHOLE BLD | | | | | + + + + + + + + | Specimen | + + | | + + + + + + + | Performing | Address | City/State/Zipcode | Phone Number | | Organization | | | | + + + + + | [facility] | [address] | [place] [address] | | | PATHOLOGY | [address] | | | + + + + + BLOOD GASES, VENOUS - LAB (03/11/1995 5:00 PM PDT) + + + + + + | Component | Value | Ref Range | Performed | Pathologist | | | | | At | Signature | + + + + + + | PAT TEMP | 36.6 | [facility]. | | | | VENOUS | | | | | + + + + + + | FIO2 VENOUS | 40% | [facility] | | | + + + + + + | PH VENOUS | 7.34 (L) | [facility] | | | + + + + + + | PCO2 VENOUS | 62. (H) | MM HG | | | + + + + + + | PO2 VENOUS | 29. (L) | MM HG | | | + + + + + + | BASE EXCESS | 6. | MM HG | | | | VENOUS | | | | | + + + + + + | HCO3 VENOUS | 34. (H) | mmol/l | | | + + + + + + | TOTAL CO2 | 35. (H) | mmol/l | | | | VENOUS | | | | | + + + + + + | CALC %O2 | 50.2 | % O2 Sat | | | | SAT VENOUS | | | | | + + + + + + + + | Specimen | + + | | + + + + + + + | Performing | Address | City/State/Zipcode | Phone Number | | Organization | | | | + + + + + | [facility] | [address] | [place] [address] | | | PATHOLOGY | [address] | | | + + + + + BLOOD GASES, ARTERIAL - LAB (03/11/1995 3:45 PM PDT) + + + + + + | Component | Value | Ref Range | Performed | Pathologist | | | | | At | Signature | + + + + + + | PAT TEMP | 36.6 | [facility] | | | | ARTERIAL | | | | | + + + + + + | FIO2 | 30% | [facility] | | | | ARTERIAL | | | | | + + + + + + | PH ARTERIAL | 7.52 (H) | [facility] | | | + + + + + + | PCO2 | 32. | MM HG | | | | ARTERIAL | | | | | + + + + + + | PO2 | 148. (H) | MM HG | | | | ARTERIAL | | | | | + + + + + + | BASE EXCESS | 3.8 | MM HG | | | | ARTERIAL | | | | | + + + + + + | HCO3 | 26. | mmol/l | | | | ARTERIAL | | | | | + + + + + + | TOTAL CO2 | 27. | mmol/l | | | | ARTERIAL | | | | | + + + + + + | CALC %O2 | 99.5 | % O2 Sat | | | | SAT ARTER | | | | | + + + + + + + + | Specimen | + + | | + + + + + + + | Performing | Address | City/State/Zipcode | Phone Number | | Organization | | | | + + + + + | [facility] | [address] | [place] [address] | | | PATHOLOGY | [address] | | | + + + + + CHEMISTRY TESTS 4 (03/11/1995 2:00 PM PDT) + + + + + + | Component | Value | Ref Range | Performed | Pathologist | | | | | At | Signature | + + + + + + | BUN, PLASMA | 9. | mg/dL | | | | (LAB) | | | | | + + + + + + | CREATININE | 0.4 | mg/dL | | | | PLASMA | | | | | | (LAB) | | | | | + + + + + + + + | Specimen | + + | | + + + + + + + | Performing | Address | City/State/Zipcode | Phone Number | | Organization | | | | + + + + + | [facility] | [address] | [place] [address] | | | PATHOLOGY | [address] | | | + + + + + CHEMISTRY TESTS 4 (03/11/1995 2:00 PM PDT) + + + + + + | Component | Value | Ref Range | Performed | Pathologist | | | | | At | Signature | + + + + + + | SODIUM,WHOL | 152. (H) | mmol/l | | | | E BLOOD | | | | | + + + + + + | POTASSIUM,W | 3.5 | mmol/l | | | | HOLE BLD | | | | | + + + + + + | GLUCOSE,WHO | 120. (H) | mg/dL | | | | LE BLOOD | | | | | + + + + + + | PH, WHOLE | 7.52 | mg/dL | | | | BLOOD | | | | | + + + + + + | CALC ICA, | 1.22 | mmol/l | | | | WHOLE BLD | | | | | + + + + + + | MAYUR ICA, | 1.15 | mmol/l | | | | WHOLE BLD | | | | | + + + + + + + + | Specimen | + + | | + + + + + + + | Performing | Address | City/State/Zipcode | Phone Number | | Organization | | | | + + + + + | [facility] | [address] | [place] [address] | | | PATHOLOGY | [address] | | | + + + + + BLOOD GASES, ARTERIAL - LAB (03/11/1995 2:00 PM PDT) + + + + + + | Component | Value | Ref Range | Performed | Pathologist | | | | | At | Signature | + + + + + + | PAT TEMP | 36.4 | [facility] | | | | ARTERIAL | | | | | + + + + + + | FIO2 | 60% | [facility]. | | | | ARTERIAL | | | | | + + + + + + | PH ARTERIAL | 7.53 (H) | [facility]. | | | + + + + + + | PCO2 | 33. | MM HG | | | | ARTERIAL | | | | | + + + + + + | PO2 | 194. (H) | MM HG | | | | ARTERIAL | | | | | + + + + + + | BASE EXCESS | 5.7 | MM HG | | | | ARTERIAL | | | | | + + + + + + | HCO3 | 28. (H) | mmol/l | | | | ARTERIAL | | | | | + + + + + + | TOTAL CO2 | 29. (H) | mmol/l | | | | ARTERIAL | | | | | + + + + + + | CALC %O2 | 99.8 | % O2 Sat | | | | SAT ARTER | | | | | + + + + + + + + | Specimen | + + | | + + + + + + + | Performing | Address | City/State/Zipcode | Phone Number | | Organization | | | | + + + + + | [facility] | [address] | [place] [address] | | | PATHOLOGY | [address] | | | + + + + + CBC TESTS 2 (03/11/1995 2:00 PM PDT) + + + + + + | Component | Value | Ref Range | Performed | Pathologist | | | | | At | Signature | + + + + + + | WHITE CELL | 7.3 | K/CU MM | | | | COUNT | | | | | + + + + + + | RED CELL | 4.39 | M/CU MM | | | | COUNT | | | | | + + + + + + | HEMOGLOBIN | 12.5 | GM/DL | | | + + + + + + | HEMATOCRIT | 37.5 | % | | | + + + + + + | MCV | 85.4 | FL | | | + + + + + + | MCH | 28.5 | PG | | | + + + + + + | MCHC | 33.3 | GM/DL | | | + + + + + + | RDW | 13.5 | % | | | + + + + + + | PLATELET | 248. (L) | K/CU MM | | | | COUNT | | | | | + + + + + + | MPV | 8. | FL | | | + + + + + + + + | Specimen | + + | | + + + + + + + | Performing | Address | City/State/Zipcode | Phone Number | | Organization | | | | + + + + + | [facility] | [address] | [place] [address] | | | PATHOLOGY | [address] | | | + + + + + TRANSFUSION MEDICINE TESTS (03/10/1995 8:00 PM PDT) + + + + + + | Component | Value | Ref Range | Performed | Pathologist | | | | | At | Signature | + + + + + + | ABO GROUP | O | | | | + + + + + + | RH TYPE | POS | | | | + + + + + + | ANTIBODY | NEGATIVE | | | | | SCREEN | | | | | + + + + + + + + | Specimen | + + | | + + + + + + + | Performing | Address | City/State/Zipcode | Phone Number | | Organization | | | | + + + + + | [facility] | [address] | [place] [address] | | | PATHOLOGY | [address] | | | + + + + + CHEMISTRY TESTS 4 (03/10/1995 8:00 PM PDT) + + + + + + | Component | Value | Ref Range | Performed | Pathologist | | | | | At | Signature | + + + + + + | SODIUM, | 136. | mmol/l | | | | PLASMA | | | | | | (LAB) | | | | | + + + + + + | POTASSIUM, | 5.6 (H) | mmol/l | | | | PLASMA | | | | | | (LAB) | | | | | + + + + + + | CHLORIDE, | 106. | mmol/l | | | | PLASMA | | | | | | (LAB) | | | | | + + + + + + | TOTAL CO2, | 21. (L) | mmol/l | | | | PLASMA | | | | | | (LAB) | | | | | + + + + + + | BUN, PLASMA | 9. | mg/dL | | | | (LAB) | | | | | + + + + + + | CREATININE | 0.3 | mg/dL | | | | PLASMA | | | | | | (LAB) | | | | | + + + + + + | GLUCOSE, | 89. (H) | mg/dL | | | | PLASMA | | | | | | (LAB) | | | | | + + + + + + + + | Specimen | + + | | + + + + + + + | Performing | Address | City/State/Zipcode | Phone Number | | Organization | | | | + + + + + | [facility] | [address] | [place] [address] | | | PATHOLOGY | [address] | | | + + + + + COAGULATION TESTS 2 (03/10/1995 8:00 PM PDT) + + + + + + | Component | Value | Ref Range | Performed | Pathologist | | | | | At | Signature | + + + + + + | PROTHROMBIN | 12.5 | SECONDS | | | | TIME | | | | | + + + + + + | PROTIME | 1.1 | SECONDS | | | | RATIO | | | | | + + + + + + | PROTHROMBIN | 1.12 | INR | | | | INR | | | | | + + + + + + | APTT | 30.3 | SECONDS | | | + + + + + + + + | Specimen | + + | | + + + + + + + | Performing | Address | City/State/Zipcode | Phone Number | | Organization | | | | + + + + + | [facility] | [address] | [place] [address] | | | PATHOLOGY | [address] | | | + + + + + CBC TESTS 2 (03/10/1995 8:00 PM PDT) + + + + + + | Component | Value | Ref Range | Performed | Pathologist | | | | | At | Signature | + + + + + + | WHITE CELL | 8.4 | K/CU MM | | | | COUNT | | | | | + + + + + + | RED CELL | 5.16 | M/CU MM | | | | COUNT | | | | | + + + + + + | HEMOGLOBIN | 13.8 | GM/DL | | | + + + + + + | HEMATOCRIT | 41.3 | % | | | + + + + + + | MCV | 80.1 (L) | FL | | | + + + + + + | MCH | 26.8 (L) | PG | | | + + + + + + | MCHC | 33.5 | GM/DL | | | + + + + + + | RDW | 13.1 | % | | | + + + + + + | PLATELET | 365. | K/CU MM | | | | COUNT | | | | | + + + + + + | MPV | 7.8 | FL | | | + + + + + + | NEUTROPHIL | DIFFERENTIAL REPORT TO | % | | | | % | FOLLOW | | | | + + + + + + | BANDS % | 2. | % | | | + + + + + + | ATYPICAL | 1. | % | | | | LYMPHS | | | | | + + + + + + | LYMPHOCYTES | 60. (H) | % | | | + + + + + + | DIFFERENTIA | 100. | Cells Counted | | | | L, FINAL | | | | | + + + + + + | SEGMENTED | 20. (L) | % | | | | NEUTROPHIL | | | | | + + + + + + | EOSINOPHILS | 5. | % | | | + + + + + + | BASOPHILS | 1. | % | | | + + + + + + | MONOCYTES | 11. (H) | % | | | + + + + + + | PLATELET | NORMAL | % | | | | ESTIMATE | | | | | + + + + + + | MICROCYTOSI | SLIGHT | % | | | | S | | | | | + + + + + + + + | Specimen | + + | | + + + + + + + | Performing | Address | City/State/Zipcode | Phone Number | | Organization | | | | + + + + + | [facility] | [address] | [place] [address] | | | PATHOLOGY | [address] | | | + + + + + documented in this encounter Visit Diagnoses Not on filedocumented in this encounter"
--- OUTSIDE RECORDS SUMMARY | ~2020-04-29 | XMS | Encounter Summary ---
Demographics + + + | Address | [address] | | | [place] [address] | + + + | Home Phone | | + + + | Preferred Language | Unknown | + + + | Marital Status | Single | + + + | Confucianism Affiliation | 1013 | + + + | Race | Unknown | + + + | Ethnic Group | Unknown | + + + Author + + + | Author | [facility] | | | and [place] | + + + | Organization | [facility] | | | and [...] [place] | | | | | [address] | | + + + + + Care Team Providers + +------+ + | Care Cad Engineer Name | Role | Phone | + +------+ + | Missy Gaston | PCP | | + +------+ + Reason for Visit +--------+--------+ + | Reason | Onset | Comments | | | Date | | +--------+--------+ + | Other | 01/16/ | | | | 2015 | | +--------+--------+ + Encounter Details +--------+ + + + + | Date | Type | Department | Care Team | Description | +--------+ + + + + | 01/16/ | Telephone | [facility] | Tessa Dominguez, | Other | | 2016 | | [facility] | MD [address] | | | | | [address] | [address] [place], | | | | | [address] | [place] [address] | | | | | [address] | [phone] | | | | | [phone] | | | +--------+ + + + [...] documented as of this encounter Miscellaneous Notes Addendum Note - Marley Palmer RN - 01/17/2016 1:29 PM PDT Addended by: Cecily PALMER on: 01/17/2016 13:29 Modules accepted: Orders, Medications elephone Enco unter - Marley Palmer RN - 01/17/2016 1:28 PM PDTI called and let mom know. A Rx wa s sent in for more 100 mg size pills.Electronically signed by Marley Palmer RN at 1:28 PM PDTTelephone Encounter - Marley Palmer RN - 01/17/2016 1:25 PM PDT MD Marley Calderon RN (You) 5 minutes ago (13:19) Ok to stay at this dose (Routing comment)Electronically signed by MARIANA Hanna t 01/17/2016 1:25 PM PDTTelephone Encounter - Ginger Lagos CMA - 01/17/2016 11:08 AM PDTMom called stating that he needs more of the lamotrigine 100 mg to complete his titration . He is at 300 mg bid right now and is feeling good on this dose. She wonders if its fine to stay at this dose for now increased of increasing to the 400 mg in the am and 500 mg at nig ht. They use the [facility]. 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
--- OUTSIDE RECORDS SUMMARY | ~2020-04-29 | XMS | Encounter Summary ---
Demographics + + + | Address | [address] | | | [place] [address] | + + + | Home Phone | | + + + | Preferred Language | Unknown | + + + | Marital Status | Single | + + + | Mosque Affiliation | CHR | + + + | Race | White | + + + | Ethnic Group | Not or | + + + Author + + + | Author | [facility] | + + + | Organization | [facility] | + + + | Address | Unknown | + + + | Phone | Unavailable | + + + Support + + + + + | Name | Relationship | Address | Phone | + + + + + | Mandy Willett | ECON | [address] | | | | | [place] | | | | | [address] | | + + + + + Care Team Providers + +------+ + | Care Campus Monitor Name | Role | Phone | + +------+ + PCP | Unavailable | + +------+ + Encounter Details +--------+ + + + + | Date | Type | Department | Care Team | Description | +--------+ + + + + | 03/11/ | Procedure - | [facility] | Record, Operation | Operative Report | | 1994 | | [place] [address] | | | | | Transcribed | [facility] | | | | | | [facility] | | | | | | [facility], [address] | | | | | | [place], [place] | | | | | | [address] | | | | | | [phone] | | | +--------+ + + + [...] | + +--------+ + + + | OPERATION RECORD | | 03/11/1995 | | Results for this | | | | 12:00 AM | | procedure are in the | | | | PDT | | results section. | + +--------+ + + + documented in this encounter Results OPERATION RECORD (03/11/1995 12:00 AM PDT) + + | Procedure Note | + + | 03/11/1995 12:00 AM PDT [place] | | [facility] | | [address], [place] [address] | | [facility] | | | | OPERATION RECORD | | | | Med Rec No.: [id number] Date: 03/11/95 | | | | Name: Rene Willett | | | | | | ATTENDING SURGEON: Alex Valenzuela M.D. | | Professor, Surgery | | Chief, Division of Cardiopulmonary Surgery | | | | RIGGING ENGINEER(S): Nayely Vizcarra M.D. | | Instructor, Cardiopulmonary Surgery | | | | Bassem Medina M.D. 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 | | | | POSTOPERATIVE DIAGNOSIS(ES): Same. | | | | OPERATION(S) PERFORMED: Intracardiac repair of the total anomalous | | pulmonary venous return. | | | | SPECIMEN(S) REMOVED: Not dictated. | | | | INDICATIONS: The patient was a young child diagnosed to | | have total anomalous pulmonary venous | | connection on echocardio | | gram, was mildly cyanotic on exercise; however, growth was normal for age. | | | | PROCEDURE: After the patient was properly identified, | | consent from the parents checked, the | | patient was brought into the Operating | | Room. General anesthesia was induced with endotracheal intubation. A | | central line was placed in the right subclavian vein. Cutdowns were | | performed on the right radial artery and the left saphenous vein. After all | | the lines and monitoring lines were in place, the patient was prepped and | | draped in the routine sterile fashion. Median sternotomy was performed | | extending from the suprasternal notch to a few cm below the xiphoid process. | | The skin and subcutaneous tissue were cut along the length of the incision | | with the Bovie cautery. Hemostasis was achieved. The sternum was split | | with an oscillating saw. Hemostasis was achieved. Isolation towels were | | placed, and then the sternal warrant server was applied. Hemostasis was | | confirmed. The thymus was then subsequently dissected from the anterior | | mediastinum and the lobes reflected away. The innominate vein was properly | | identified and was traced laterally to its junction with the vertical vein. | | The vertical vein was then dissected carefully identifying the phrenic nerve | | properly and taking extra precautions to avoid injury to the same. | | | | The left vertical vein was then looped and put on a snugger and then the | | pericardium was opened in the midline. A pericardial well was created by | | opening up the edges of the pericardium to the skin towels. The patient was | | then heparinized after confirming the SET was above the desired limits. The | | ascending aorta was cannulated after placing a partial clamp and a | | pursestring suture with #4-0 Austin-Sammy, and the cannula was inserted and | | secured in place. A single venous cannula was then used to cannulate the | | right atrial appendage which was also placed through a pursestring of #4-0 | | Austin-Sammy placed at the right atrial appendage. | | | | Once readiness of cardiopulmonary bypass was achieved, cardiopulmonary | | bypass was instituted and the patient was cooled to 17 degrees Centigrade. | | Once the patient was cooled to 17 degrees Centigrade, a crossclamp was | | applied and cardioplegia was given. Topical cooling was achieved with ice | | cold saline. Total circulatory arrest was achieved. The venous cannula was | | removed from the right atrium. The heart was lifted up and opened up and | | the posteriorly situated common chamber was then identified and dissected | | out. The common open chamber was then opened up transversely to about one | | inch in length. A similar incision was placed from the base of the left | | atrial appendage to its body, opened the appropriate length, and the | | anastomosis was completed with #5-0 Polypropylene sutures using continuous | | sutures. | | | | After the anastomosis of the common chamber with the left atrium was | | completed, the heart was dropped down. The right atrium was then opened and | | the atrial septal defect which was present was closed using continuous | | sutures of #5-0 Polypropylene. After this was completed the right atrium | | was then closed with continuous sutures of #5-0 Polypropylene. After the | | right atrium was closed, the venous cannula was put into the right atrium | | and the cardiopulmonary bypass was reinstituted. After cardiopulmonary | | bypass was reinstituted, the patient was also rewarmed from this phase | | onwards. Simultaneously, as rewarming was in progress the pulmonary artery | | was opened with a small incision and the pulmonary valve was inspected, | | which revealed no abnormality and was calibrated to be of adequate size for | | the child. The pulmonary arteriotomy was subsequently closed with #5-0 | | Polypropylene using continuous sutures. | | | | Once rewarming was complete and the heart had regained normal cardiac | | function and rewarming was complete, the patient was gradually weaned off | | cardiopulmonary bypass with good hemodynamics. Before weaning the patient | | off cardiopulmonary bypass the left vertical vein which had been looped and | | secured was ligated down and was also additionally clipped and its | | continuity with the innominate vein hence was discontinued. After weaning | | the patient off cardiopulmonary bypass and stable hemodynamics maintained | | for some period of time, hemostasis was confirmed, and the Heparin was | | reversed with Protamine. The chest was then closed over two chest tubes in | | | | the routine fashion. The pericardium was approximated with #2-0 black silk | | sutures. The sternum was approximated with 2# Tevdek sutures. The | | subcutaneous tissue was closed with #3-0 Vicryl, and the skin was closed | | edges were approximated using #4-0 subcuticular sutures. | | | | The patient was then shifted to the Intensive Care Unit in stable condition. | | | | | | | | Nayely Vizcarra M.D. | | Instructor, Cardiopulmonary | | Surgery | | Alex Valenzuela M.D. | | Professor, Surgery | | Chief, Division of Cardiopulmonary Surgery | | FARZANAT/danielle | | | | P | | C: 03/29/95 rajendra | | | | cc: | | | + + documented in this encounter Visit Diagnoses Not on filedocumented in this encounter"
--- OUTSIDE RECORDS SUMMARY | ~2020-04-29 | XMS | Encounter Summary ---
Demographics + + + | Address | [address] | | | [place] [address] | + + + | Home Phone | | + + + | Preferred Language | Unknown | + + + | Marital Status | Single | + + + | Orthodoxy Affiliation | CHR | + + + [...] [id number] | | | | | [address] | | + + + + + Care Team Providers + +------+ + | Care Assistant Professor Of Biology Name | Role | Phone | + +------+ + PCP | Unavailable | + +------+ + Encounter Details +--------+ + + + + | Date | Type | Department | Care Team | Description | +--------+ + + + + | 02/04/ | Results | | Other, Faculty | | | 1994 | Only | | [phone] | | +--------+ + + + + [...] | | + +---------+ + + | [facility] DEPARTMENT OF | | | [...] of | | | | | | [facility] dated March 11, | | | | [...] | | | | | | ANDERS IVDAL | | | | | | | [...] | | + +---------+ + + | [facility] DEPARTMENT OF | | | | | RADIOLOGY | | | | + +---------+ + + documented in this encounter Visit Diagnoses Not on filedocumented in this encounter"
--- OUTSIDE RECORDS SUMMARY | ~2020-04-29 | XMS | Encounter Summary ---
Demographics + + + | Address | [address] | | | [place] [address] | + + + | Home Phone [...] Author + + + | Author | [facility] | + + + | Organization | [facility] | + + + | Address | Unknown | + + + | Phone | Unavailable | + + + Support + + + + + | Name | Relationship | Address | Phone | + + + + + | Mandy Willett | ECON | [address] | | | | | [place] | | | | | [address] | | + + + + + Care Team Providers + +------+ + | Care Outside Sales Representative Insurance Name | Role | Phone | + +------+ + | Missy Gaston | PCP | | + +------+ + Reason for Visit Benefits Check (Routine) +--------+--------+ + + + + | Status | Reason | Specialty | Diagnoses / | Referred By | Referred To | | | | | Procedures | Contact | Contact | +--------+--------+ + + + + | Closed | | Oral & | | Hds Oral | Hds Oral | | | | Maxillofacial | | Surgery | Surgery [address] | | | | Surgery | | [address] | [address] | | | | | | [address] | | | | | | [address] | [facility] | | | | | | [place] | Research | | | | | | Research | Center, 7th | | | | | | Center, 7th | floor | | | | | | floor | [place], [place] | | | | | | [facility] [place] | [address] | | | | | | [address] | Phone: | | | | | | Phone: | [phone] | | | | | | [phone] | Fax: | | | | | | Fax: | [phone] | | | | | | [phone] | | +--------+--------+ + + + + Encounter Details +--------+ + + + + | Date | Type | Department | Care Team | Description | +--------+ + + + + | 10/12/ | Hospital [facility] | Luigi Abarca, | No Show | | 2017 | Encounter | [facility] [address] | ,DMD [address] | | | | | [address] | [facility] | | | | | [place] [facility] | [place], [place] | | | | | [place], 7th floor | [address] | | | | | [place], [place] | [phone] | | | | | [address] | | | | | | [phone] | | | +--------+ + + + [...]
--- OUTSIDE RECORDS SUMMARY | ~2020-04-29 | XMS | Clinical Summary ---
Demographics + + + | Address | [address] | | | [place] [address] | + + + | Home Phone | | + + + | Preferred Language | Unknown | + + + | Marital Status | Single | + + + | Yarsanism Affiliation | 1013 | + + + | Race | Unknown | + + + | Ethnic Group | Unknown | + + + Author + + + | Author | [facility] | | | and [place] | + + + | Organization | [facility] | | | and [place] | + + + | Address | Unknown | + + + | Phone | Unavailable | + + + Support + + + + + | Name | Relationship | Address | Phone | + + + + + | Mandy Newton | ECON | [address] | | | | | [place] | | | | | [address] | | + + + + + Care Team Providers + +------+ + | Care Food Taster Name | Role | Phone | + +------+ + | Missy Gaston | PCP | | + +------+ + Allergies + + + + + + | Active Allergy | Reactions | Severity | Noted | Comments | | | | | Date | | + + + + + + | Penicillins | Other (See Comments) | | 07/10/20 | Possible allergy | | | | | 11 | | + + + + + + Medications + + + +---------+------+------+-------+ | Medication | Sig | Dispensed | Refills | Star | End | Statu | | | | | | t | Date | s | | | | | | Date | | | + + + +---------+------+------+-------+ | midazolam (VERSED) | Dispense 10mg | 2.1 mL | 2 | 02/ | | Activ | | 5 mg/mL | intranasally | | | | | e | | injectionIndications | (5mg/1ml in each | | | 16 | | | | : Generalized | nostril) with MAD | | | | | | | [...] in between. | | | | | | + + + +---------+------+------+-------+ +---+ + | | Additional | | | InformationPatient | | | not taking. Reason: | | | Not Available, | | | Reported on | | | 12/04/2018 9:29 PM | +---+ + + + +--------+----+------+---+-------+ | lamoTRIgine | TAKE 2 TABS BY MOUTH | 120 | 11 | 05/0 | | Activ | | (LAMICTAL) 150 MG | TWICE DAILY | tablet | | 05/16 | | e | | tablet | | | | 18 | | | + + +--------+----+------+---+-------+ | levETIRAcetam | Take 500 mg by mouth | | 0 | | | Activ | | (KEPPRA) 500 mg | 2 times daily. 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 | + + + | Nocturnal enuresis | | + + + | Viral warts, unspecified | | + + + + + | Overview: ICD-10 Record update | + + + +---+ | Migraine without aura, without mention of intractable migraine | | | without mention of status migrainosus | | + +---+ + + | Overview: ICD-10 Record update | + + Resolved Problems + +--------+ + | Problem | Noted | Resolved | | | Date | Date | + +--------+ + | Viral warts, unspecified | | | | | | 4 | + +--------+ + + + | Overview: ICD-10 Record update | + + Social History + +-------+ +--------+------+ [...] on file | | + + + Last Filed Vital Signs + + + [...] | | + + + + + Plan of Treatment + + + + + | Health Maintenance | Due Date | Last | Comments | | | | Done | | + + + + + | Hepatitis C | | | | | Screening | 5 | | | + + + + + | Medication | | | | | Management | 5 | | | + + + + + | Vaccine: | | | | | Dtap/Tdap/Td (1 - | 4 | | | | Tdap) | | | | + + + + + | Med Mgmt: Cr | | 10/28/19 | | | | 0 | 19, | | | | | 10/09/19 | | | | | 15 | | + + + + + | Med Mgmt: eGFR | | 10/28/19 | | | | 0 | 19, | | | | | 10/09/19 | | | | | 15 | | + + + + + | Vaccine: Influenza | | | | | (#1) | 0 | | | + + + + + Results Not on filefrom Last 3 Months Insurance +-------+--------+ +--------+-------+---------+------+ | Payer | Benefi | Subscriber | Effect | Phone | Address | Type | | | t Plan | ID | chris | | | | | | / | | Dates | | | | | | Group | | | | | | +-------+--------+ +--------+-------+---------+------+ | BCBS | BCBS | [id number] | 09/27/19 | | | PPO | | | OOS | 2 | 14-Pre | | | | | | PPO | | sent | | | | +-------+--------+ +--------+-------+---------+------+ + +--------+ +--------+ + + | Guarantor Name | Accoun | Relation to | Date | Phone | Billing Address | | | t Type | Patient | of | | | | | | | | | | + +--------+ +--------+ + + | Rene Willett | Person | Self [birth year] | [address] | | [place] | al/Fam | | 1996 | [phone] | [place] [address] | | | [place] | | | 8 (Home) | | + +--------+ +--------+ + + Advance Directives + + + + + | Type | Date Recorded | Patient | Explanation | | | | Telesales Specialist | | + + + + + | Power of | | | | | Boatbuilder Supervisor | | | | + + + + + | Advance | 10/28/2018 12:45 | | | | Directive | PM | | | + + + + +
--- OUTSIDE RECORDS SUMMARY | ~2020-04-29 | XMS | Encounter Summary ---
Demographics + + + | Address | [address] | | | [place] [address] | + + + | Home Phone | | + + + | Preferred Language | Unknown | + + + | Marital Status | Single | + + + | Caodaism Affiliation | 1013 | + + + | Race | Unknown | + + + | Ethnic Group | Unknown | + + + Author + + + | Author | [facility] | | | and [place] | + + + | Organization | [facility] | | | and [place]in[place] [...] [place] | | | | | [address] | | + + + + + Care Team Providers + +------+ + | Care Clinical Lab Assistant Name | Role | Phone | + +------+ + | Missy Gaston | PCP | | + +------+ + Reason for Visit + + + | Reason | Comments | + + + | New Patient | | + + + Evaluate & Treat (Routine) +--------+--------+ + + + + | Status | Reason | Specialty | Diagnoses / | Referred By | Referred To | | | | | Procedures | Contact | Contact | +--------+--------+ + + + + | Closed | | Neurology | Diagnoses | Marilin, | Angelica, | | | | | ZOHRA | Missy | MD Tessa | | | | | Procedures | [place] [address] | [address] | | | | | NEW PATIENT | [address] | [address] | | | | | | [facility] [place] | [place] | | | | | | [address] | [address] Phone: | | | | | | Phone: | [phone] | | | | | | [phone] | Fax: | | | | | | Fax: | [phone] | | | | | | [phone] | | +--------+--------+ + + + + Encounter Details +--------+---------+ + + + | Date | Type | Department | Care Team | Description | +--------+---------+ + + + | 12/01/ | Office | [facility] | Tessa Dominguez, | Generalized | | 2013 | Visit | [facility] | MD [address] | nonconvulsive | | | | [address] | [address] [place], | epilepsy without | | | | [address] [place], [place] | [place] [address] | mention of | | | | [address] | [phone] | intractable epilepsy | | | | [phone] | | ([facility]) (Primary Dx); | | | | | | Attention deficit | | | | | | disorder without | | | | | | mention of | | | | | | hyperactivity | +--------+---------+ + + + Social History [...] + + + | Blood Pressure | 118/68 | 12/01/2013 8:14 AM | | | | | PST | | + + + + + | Pulse | 68 | 12/01/2013 8:14 AM | | | | | PST | | + + + + + | Temperature | - | - | | + + + + + | Respiratory Rate | 16 | 12/01/2013 8:14 AM | | | | | PST | | + + + + + | Oxygen Saturation | - | - | | + + + + + | Inhaled Oxygen | - | - | | | Concentration | | | | + + + + + | Weight | 67.9 kg (149 lb 12.8 | 12/01/2013 8:14 AM | | | | oz) | PST | | + + + + + | Height | 180.3 cm (5' 11") | 12/01/2013 8:14 AM | | | | | PST | | + + + + + | Body Mass Index | 20.89 | 12/01/2013 8:14 AM | | | | | PST | | + + + + + documented in this encounter Progress Tessa Palacio MD - 12/01/2013 8:21 AM PSTFormatting of this note might be different fro m the original. Chief complaint: Primary generalized epilepsy History of Present Illness: Mr. 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 His first seizure was a generalized tonic-clonic seizure. He is referred t o our clinic for consultation by JUAN García for continuity of care that he jonh es closer to [place] and then to [place] and he is becoming an adult. His last seizure occu rred on November 18. He was brushing his teeth when his mother heard a crash in the [facility]. He had generalized tonic-clonic seizure that lasted about a minute. Afterwards he was q uite postictal period and then he had another generalized tonic-clonic seizure. The only pr ovoking factors that he is been working a pretty chaotic schedule. 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 His mother has also noticed that he stays up late talking on the phone in bed. 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 He also has myoclonic jerks that are wors e in the morning. He has no family history of epilepsy. He had open-heart surgery as an in [place] and he also had meningitis when he was 8 months old. In terms of his development he is only is been somewhat delayed because a learning disorder. He also has attention deficit d isorder. They had him on 5 aunts but he didn't like the way it made him feel. He didn't fe el like it made him concentrate better though his mother says without he probably would not have finished high school. He says it made him feel quite tired. He no longer takes it no longer wants to take it. It did not effect his seizures. He did have his first seizure abo ut 10 days after he started taking the medication. But even when he's not taking the medica tion he cannot seizures. On November 18 they increased his medications. He's currently salma ing lamotrigine. After his last seizure his dose was increased to Lamictal extended release 200 mg in the morning and 300 mg in the evening. Since the increase in the medication he h as not had any further seizures. He has been tried on Keppra as well as zonisamide and etho suximide in the past. His bike compliance on the medication he will continue to have seizur es. He denies any alcohol use. He's not currently driving. Since the increase in his medi cation he denies any staring spells. There has been no episodes of loss of time. There's n o side effects to his antiepileptic medication. There is no mood changes. There is no suic ten or homicidal thoughts. He's had one seizure provoked by a video game but denies any rel ationship of his seizures to the looking plate. His mother thinks that his seizures are rel ated to sleep deprivation. Past Medical History: Attention deficit disorder, primary generalized epilepsy, meningitis Past Surgical History: Open-heart surgery in 1994 Current Medications: Current Outpatient Prescriptions Medication Sig Dispense Refill LAMICTAL XR 100 MG TB24 100 mg. He takes 400mg in morning and 500mg at night LAMICTAL XR 200 MG TB24 He take 400mg in morning and 500mg at night Family History: No family history of epilepsy Social History: History Social History Marital Status: Single Spouse Name: N/A Number of Children: N/A Years of Education: N/A Occupational History Not on file. Social History Main Topics Smoking status: Never Smoker Smokeless tobacco: Never Used Alcohol Use: No Drug Use: No Sexually Active: No Other Topics Concern Not on file Social History Narrative No narrative on file He does not smoke, no alcohol, no drugs. 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 He lives with his parents. Allergies: No Known Allergies Vital Signs: Filed Vitals: 12/01/13 0814 BP: 118/68 Pulse: 68 Resp: 16 Physical Exam: General: well nourished patient sitting in NAD HEENT: Atraumatic, normocephalic, conjunctivae are intact, no rhinnorhea present, no gingiv al hyperplasia, Neck: neck supple, no carotid bruits, no lymphadenopathy Ext: no cyanosis or edema Neuro: MS: Alert and oriented to person, place, time. Able to name 3/3 objects after 5 min utes, can follow 3 step commands without difficulty, can spell the color "black" forward and backward, able to name and repeat, no signs of aphasia, judgement intact, conversation is a ppropriate. CN: PERRL, VA 20/20 bilaterally, funduscopic exam [...] good tone and bulk. No adventitious movements see n. Sensory: Intact to light touch throughout. No signs of neglect. Coordination: intact to finger to nose and heel to andres without signs of dysmetria or dysdi dokinesia with rapidly alternating movements. DTR: 2+ throughout all extremities, with toes downgoing bilaterally, no signs of clonus Assessment & Plan: Mr. Willett is an 17-year-old gentleman with a history of primary generalized epilepsy th at does sound somewhat medically refractory in nature. He's been tried on Keppra, zonisamid e, ethosuximide and now Lamictal and continues to have seizures. He however is not avoiding certain triggers that are notorious to make his type of epilepsy worse. 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 This type a seizure disorder is highly provoked by sleep deprivation as well as alcohol. He is not currently drinking but he is currently w orking 2 jobs and is oftentimes sleep deprived. His most recent seizures most likely been p rovoked by sleep deprivation. He was reminded to avoid these triggers. Since the increase in his seizure medicines he has not had any further seizures. We'll continue him on Lamicta l extended release 200 mg in the morning and 300 mg at night. We will check his Lamictal le vels today to get a good baseline level that he remains seizure-free at. He is to follow se izure precautions which includes not driving, not operating heavy machinery, not working wit h hazardous substances, not swimming or taking baths unattended, or climbing tall heights un til he seizure free for at least 6 months from any seizures that result in loss of awareness . He will followup in clinic with me in 6 months. We will also check a CBC and conference a metabolic profile to make absolute sure the Lamictal is not affecting these levels. This report was transcribed using voice recognition software. Every effort was made to ensu re accuracy; however, inadvertent computerized deaf/hard of hearing specialist errors may be present. Updated Medication List: Current Outpatient Prescriptions Medication Sig Dispense Refill LAMICTAL XR 100 MG TB24 100 mg. He takes 400mg in morning and 500mg at night LAMICTAL XR 200 MG TB24 He take 400mg in morning and 500mg at night Review of Systems Pertinent positives include. General: [...] Negative for seasonal allergies and medication allergies. Cc:Missy Gaston documented in this en counter Miscellaneous Notes Miscellaneous - JADYN ASHRAF - 12/01/2013 12:00 AM PST documented in this encounter Plan of Treatment + +------+--------+ + + | Name | Type | Priori | Associated Diagnoses | Order Schedule | | | | ty | | | + +------+--------+ + + | Lamotrigine Level | Lab | Routin | Generalized | 1 Occurrences | | | | e | nonconvulsive | starting 12/01/2013 | | | | | epilepsy without | until 12/01/2014 | | | | | mention of | | | | | | intractable epilepsy | | | | | | (HCC) | | + +------+--------+ + + | CBC with | Lab | Routin | Generalized | 1 Occurrences | | Differential | | e | nonconvulsive | starting 12/01/2013 | | | | | epilepsy without | until 12/01/2014 | | | | | mention of | | | | | | intractable epilepsy | | | | | | (HCC) | | + +------+--------+ + + | Comprehensive | Lab | Routin | Generalized | 1 Occurrences | | Metabolic Panel | | e | nonconvulsive | starting 12/01/2013 | | | | | epilepsy without | until 12/01/2014 | | | | | mention of | | | | | | intractable epilepsy | | | | | | (HCC) | | + +------+--------+ + + documented as of this encounter Visit Diagnoses + + | Diagnosis | + + | Generalized nonconvulsive epilepsy without mention of intractable epilepsy - Primary | + + | Attention deficit disorder without mention of hyperactivity | + + documented in this encounter
--- OUTSIDE RECORDS SUMMARY | ~2020-04-29 | XMS | Encounter Summary ---
Demographics + + + | Address | [address] | | | [place] [address] | + + + | Home Phone | | + + + | Preferred Language | Unknown | + + + | Marital Status | Single | + + + | Moravian Affiliation | 1013 | + + + | Race | Unknown | + + + | Ethnic Group | Unknown | + + + Author + + + | Author | [facility] | | | and [place] | + + + | Organization | [facility] | | | and [...] [place] | | | | | [address] | | + + + + + Care Team Providers + +------+ + | Care Assistant Manager Pt Name | Role | Phone | + +------+ + | Missy Gaston | PCP | | + +------+ + Reason for Visit + +--------+ + | Reason | Onset | Comments | | | Date | | + +--------+ + | Seizures | 01/21/ | | | | 2014 | | + +--------+ + Encounter Details +--------+ + + + + | Date | Type | Department | Care Team | Description | +--------+ + + + + | 01/21/ | Telephone | [facility] | Tessa Dominguez, | Seizures | | 2015 | | [facility] | MD [address] | | | | | [address] | [address] [place], | | | | | [address] [place] | [place] [address] | | | | | [address] | [phone] | | | | | [phone] | | | +--------+ + + + [...] this encounter Miscellaneous Notes Telephone Encounter - Marley Chopra RN - 01/21/2015 11:22 AM PDTI called and let mo m know. The RX has been sent in. elephone Encounter - Tessa Dominguez MD - 01/21/2015 11:02 AM PDTYep lets s ee if the combo is enough to control his seizures. I think he may need 2 antiseizure meds.E lectronically signed by Tessa Dominguez MD at 01/21/2015 11:02 AM PDTTelephone Encounter - Marley Brown RN - 01/21/2015 10:40 AM [facility]TI called and spoke to mom and she said that he has been on Keppra before. She believes he was taken off of it because he was still havi ng seizures but he wasn't on anything else with it. She doesn't recall him being on anything else besides the Keppra. Do you still want to add the Keppra?Electronically signed by Marley Chopra RN at 10:42 AM PDTTelephone Encounter - Tessa Dominguez MD - 01/21/2015 10:29 AM PDTHi Hialy tiwari, Unless he was staying up all night, I would want to add something onto his Lamictal. We ca n't increase his lamictal dose any further, his last level was high. Find out if he has tri ed anything else but if not, we will start him on Keppra 500 mg BID in addition to his lamic verna. He will need a new Rx. elephone Encounter - Av Galvez CMA - 01/21/2015 8:25 AM PDTRene had a seizure on Wednesday that last ed one min, he came out of it and went into another one that lasted a little longer then the first. His dad said it lasted about two min. He was in a car when the seizures happened so he did not get hurt or injured. Rene told his parents that he has not skipped any medication however he said that he has not been getting his eight hours of sleep every night. They would like to know if Rene will need a increase of his medication or if they should wait and see if getting the proper amount of sleep will help. Fransico Galvan: [phone] documented in this encounter Plan of Treatment Not on filedocumented as of this encounter Visit Diagnoses + + | Diagnosis | + + | Generalized nonconvulsive epilepsy (HCC) - Primary Generalized nonconvulsive epilepsy | | without mention of intractable epilepsy | + + documented in this encounter"
--- OUTSIDE RECORDS SUMMARY | ~2020-04-29 | XMS | Encounter Summary ---
Demographics + + + | Address | [address] | | | [place] [address] | + + + | Home Phone | | + + + | Preferred Language | Unknown | + + + | Marital Status | Single | + + + | Denominational Affiliation | CHR | + + + | Race | White | + + + | Ethnic Group | Not or | + + + Author + + + | Author | [facility] | + + + | Organization | [facility] | + + + | Address | Unknown | + + + | Phone | Unavailable | + + + Support + + + + + | Name | Relationship | Address | Phone | + + + + + | Mandy Willett | ECON | [address] | | | | | [place] | | | | | [address] | | + + + + + Care Team Providers + +------+ + | Care Call Center Consultant Name | Role | Phone | + +------+ + PCP | Unavailable | + +------+ + Encounter Details +--------+ + + + + | Date | Type | Department | Care Team | Description | +--------+ + + + + | 02/23/ | Office | General Internal | Note, Outpatient | Progress Note | | 1996 | Visit-Trans | Medicine [address] | Clinic | | | | gladys | [facility] | | | | | | Mailcode: [id number] | | | | | | Outpatient Clinic | | | | | | [facility], [address] | | | | | | [place], [place] | | | | | | [address] | | | | | | [phone] | | | +--------+ + + + [...] documented as of this encounter Progress Notes Interface, Senior Software Manager In - 12/22/2006 1:01 AM PDT CLINIC DATE: 02/24/[birth year] CLINIC SITE: MIKE López is a [id number] child who is 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 I saw him last a year ago in March and since that time, he has gotten along well with regard to his heart. However, he has had some infections that have been quite disturbing and serious. He had meningitis and then has had many episodes of otitis for which they are considering tubes at this time. His cardiac examination today is entirely normal. He weighs 23.5 pounds. He is 32 inches tall. Head circumference is 47 cm. Blood pressure by palpation is 94 systolic. His heart rate is 140 and regular. I heard no heart murmurs when I listened to him. He has a quiet precordium. Abdominal exam is negative. Essentially, he has no heart disease at this time. He has had an excellent repair of his cardiac anomaly. For purposes of follow-up, I asked to see him again in three years' time. I expect to have no cardiac difficulties in the interim. Indio Thompson M.D. Professor of Pediatrics Division of Pediatric Cardiology HERMILA/breanne P cc: ERIC CRUZ MD documented in this encounter Plan of Treatment Not on filedocumented as of this encounter Visit Diagnoses Not on filedocumented in this encounter"
--- OUTSIDE RECORDS SUMMARY | ~2020-04-29 | XMS | Encounter Summary ---
Demographics + + + | Address | [address] | | | [place] [address] | + + + | Home Phone | | + + + | Preferred Language | Unknown | + + + | Marital Status | Single | + + + | Pentecostal Affiliation | CHR | + + + | Race | White | + + + | Ethnic Group | Not or | + + + Author + + + | Author | [facility] | + + + | Organization | [facility] | + + + | Address | Unknown | + + + | Phone | Unavailable | + + + Support + + + + + | Name | Relationship | Address | Phone | + + + + + | Mandy Mcnamara | ECON | [address] | | | | | [place] | | | | | [address] | | + + + + + Care Team Providers + +------+ + | Care Medical Physics Teacher Name | Role | Phone | + +------+ + PCP | Unavailable | + +------+ + Encounter Details +--------+ + + + + | Date | Type | Department | Care Team | Description | +--------+ + + + + | 02/04/ | Transcribed | UNKNOWN DEPARTMENT | Dictation, Other | Transcribed | | 1994 | | [address] | | | | | | [address] | | | | | | [place], [place] | | | | | | [address] | | | +--------+ + + + [...] as of this encounter Progress Notes Interface, Market Intelligence Consultant In - 01/14/2007 5:03 AM PDT [address] [address] [facility] Phone #: , , Fax #: February 05, 1995 CARDIAC SURGERY CONFERENCE NOTE RE:Spring Mcnamara MR#:[id number] :[birth year] Spring is a [id number] who recently presented as an outpatient to our institution for evaluation of a cardiac murmur. At the time of that evaluation by Doctor Thomas Diaz, he had a Grade III/, harsh in quality, systolic ejection murmur along the upper left sternal border. In addition, he was noted to be desaturated with an oximetry saturation of 86%. 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 In addition, there is a question of possible pulmonary valve stenosis with accelerated flow velocity in the main pulmonary artery. It was discussed as whether this represents increased flow secondary to the cardiac defect versus true pulmonary valve stenosis. Following discussion, it was felt that Spring should be scheduled for surgical repair in February of 1995. At the time of repair of the total anomalous pulmonary venous connection, Doctor Valenzuela will evaluate the pulmonary valve and annulus to assess for stenosis. Phil Atkins M.D. Order Processing Specialist of Pediatrics Department of Pediatric Cardiology MR:chc February 06, 1995 nterface, Market Intelligence Consultant In - 01/14/2007 5:03 AM PDT [address] [address] [facility] Phone #: , , Fax #: February 04, 1995 LISA SALAS MD [address] [address] RE:SPRING MCNAMARA MR:[id number] Salas: It was a pleasure meeting Spring Mcnamara, and his parents. As you know, Spring was born after a 37-week . Labor was induced because of preeclampsia. The child's weight was 6 pounds 13 ounces, and there were no problems in the period. His mother mentioned that he was in the hospital for a couple of days, and his cardiovascular examination remained normal during that time. She mentioned that at his six-week check recently, you heard a heart murmur and were concerned that the child may have congenital heart disease, and felt that he should be evaluated here. He has been taking formula well, he is not having any diaphoresis or shortness of breath when feeding. He takes two to three ounces very two to three hours. He is not spitting up. His bowel movements are normal, and he is urinating well. He has good color all of the time. His color remains non-cyanotic, even when he is crying, according to his parents. He does have good wake periods now, and is getting more active daily. He has a little bit of nasal congestion over the past several days. There is no family history known of congenital heart disease, although a maternal aunt apparently had episodes of SVT as a child, with recurrences during pregnancies. On physical examination his weight is 4.4 kilograms, height is 56.0 centimeters, and his head circumference is 38.0. His blood pressure is 90/70, and his heart rate is 180. His saturation is 86 percent on room air. On examination he appears to be a very vigorous child, with just minimal cyanosis evident. Head: The anterior fontanel is normal. Lungs: Clear to auscultation. Cardiac: Peripheral perfusion is normal, the femoral pulses are normal, and other peripheral pulses are normal. Precordial activity is slightly increased. S1 is normal. There is a grade III/ systolic ejection murmur heard at the mid upper left sternal border. No diastolic murmur could be heard. No gallop rhythm was heard. Abdomen: The bowel sounds were normal. The liver edge is 1.0 cm below the right costal margin, and the edge is sharp. On ECG, there is minimal right axis deviation, otherwise this is a normal ECG. On chest x-ray his heart size is mildly increased, with a wide mediastinum. There is increased pulmonary vascularity in the lung gilbert. Echocardiogram study demonstrated total anomalous pulmonary vein return, with the pulmonary vein confluence connecting to a vertical vein, which connects to the SVC. An atrial septal defect is evident, with no evidence of restriction. The flow is right to left. There is an increased velocity across the pulmonary valve. The pulmonary valve looks just slightly thickened. The rest of the echocardiogram was essentially normal. 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 The connection is via a vertical vein to the SVC. His ASD is not restrictive. He is thriving in spite of his heart problem, with good weight gain and normal activity. He will, however, need to have this surgically corrected sometime in the next several weeks. Since he is doing well, it is no emergency, but it needs to be done before too long. We sat down with the parents and explained the anatomy and physiology of his heart problem, and I think they had a very good understanding of the defect and what needs to be done for it. They were reassured that the outcome is usually extremely good, and that Spring should have a very normal childhood and adult life. It was very astute of you to picker box operator the fact that this child had congenital heart disease. The parents are, of course, very pleased with you as their physician. When surgery is scheduled we will let you know that date, and will remain in touch with you throughout this period. If any questions should arise at any time, please do not hesitate to give us a call. Sincerely, Thomas Diaz M.D. Fellow, Pediatric Cardiology Kinga Rodgers M.D. Order Processing Specialist, Pediatrics Pediatric Cardiology BH:lakia February 05, 1995 documented in this encounter Plan of Treatment Not on filedocumented as of this encounter Visit Diagnoses Not on filedocumented in this encounter"
--- OUTSIDE RECORDS SUMMARY | ~2020-04-29 | XMS | Clinical Summary ---
Demographics + + + | Address | [address] | | | [place] [address] | + + + | Home Phone | | + + + | Preferred Language | Unknown | + + + | Marital Status | Single | + + + | Alevism Affiliation | CHR | + + + | Race | White | + + + | Ethnic Group | Not or | + + + Author + + + | Author | [facility] | + + + | Organization | [facility] | + + + | Address | Unknown | + + + | Phone | Unavailable | + + + Support + + + + + | Name | Relationship | Address | Phone | + + + + + | Mandy Willett | ECON | [address] | | | | | [place] | | | | | [address] | | + + + + + Care Team Providers + +------+ + | Care Steel Die Printer Name | Role | Phone | + +------+ + | Missy Gaston | PCP | | + +------+ + Source Comments [facility] is fully live on both [facility] and [facility] Allergies No Known Allergies Medications + + + +---------+------+------+-------+ | Medication | Sig | Dispensed | Refills | Star | End | Statu | | | | | | t | Date | s | | | | | | Date | | | + + + +---------+------+------+-------+ | lamoTRIgine 150 mg | Take 300 mg by mouth | | 0 | | | Activ | | oral tablet | two times daily. | | | | | e | + + + +---------+------+------+-------+ | ondansetron ODT | Dissolve 1 tablet in | 30 | 0 | 07/2 | | Activ | | (ZOFRAN ODT) 4 mg | mouth every twelve | tablet | | 6/20 | | e | | oral | hours as needed for | | | 17 | | | | tablet,disintegratin | nausea/vomiting. | | | | | | | g | | | | | | | + + + +---------+------+------+-------+ | oxyCODONE | Take 5-10 mL by | 240 mL | 0 | 07/2 | | Activ | | (immediate release) | mouth every six | | | 6/20 | | e | | 5 mg/5 mL oral | hours as needed for | | | 17 | | | | solutionIndications: | moderate pain. | | | | | | | pain | Indications: Pain | | | | | | + + + +---------+------+------+-------+ | acetaminophen 325 | Take 3 tablets by | | 0 | 07/2 | | Activ | | mg oral tablet | mouth three times | | | 6/20 | | e | | | daily. | | | 17 | | | + + + +---------+------+------+-------+ | chlorhexidine 0.12 | Take 15 mL by mouth | 473 mL | 1 | 03/28 | | Activ | | % mucous membrane | two times daily. | | | 03/16 | | e | | mouthwash | After meals Swish | | | 17 | | | | | undiluted oral rinse | | | | | | | | around in mouth for | | | | | | | | 30 seconds, then | | | | | | | | spit. Do not | | | | | | | | swallow. | | | | | | + + + +---------+------+------+-------+ Active Problems + + + | Problem | Noted Date | + + + | Subcondylar fracture of right side of mandible | 04/19/2017 | + + + | Fracture of left side of body of mandible | 04/19/2017 | + + + | Closed fracture of left side of mandibular body, initial | 04/19/2017 | | encounter | | + + + | Closed subcondylar fracture of right side of mandible, initial | 04/19/2017 | | encounter | | + + + Social History + +-------+ [...] recent travel history available. | + + Last Filed Vital Signs + [...] Health Maintenance | Due Date | Last Done | Comments | + + + + + | Influenza (Flu) | | | | | vaccination (#1) | 9 | | | + + + + + | Pneumococcal | Aged Out | | No longer eligible | | vaccination | | | based on patient's | | | | | age to complete this | | | | | topic | + + + + + Results Not on filefrom Last 3 Months Insurance + +--------+ +--------+ + +--------+ | Payer | Benefi | Subscriber | Effect | Phone | Address | Type | | | t Plan | ID | chris | | | | | | / | | Dates | | | | | | Group | | | | | | + +--------+ +--------+ + +--------+ | BLUE CROSS BLUE | REGENC | xxxxxxxxxxx | 09/27/19 | [phone] | [address] | PPO | | SHIELD | E BCBS | x | 17-Pre | 8 | [address] | | | | | | sent | | [place], | | | | | | | | [place] | | | | | | | | [address] | | + +--------+ +--------+ + +--------+ | [place]ICAID [place] | OHP | xxxxxxxx | 11/26/19 | [phone] | [address] | Medica | | | PLUS | | 17-Pre | 6 | [id number] | id | | | OPEN | | sent | | [place], [place] | | | | CARD | | | | [phone] | | + +--------+ +--------+ + +--------+ + +--------+ +--------+ + + | Guarantor Name | Accoun | Relation to | Date | Phone | Billing Address | | | t Type | Patient | of | | | | | | | | | | + +--------+ +--------+ + + | Rene Willett | Person | Self [birth year] | [address] | | | al/Fam | | 1996 | [phone] | [place] [address] | | | [place] | | | 8 (Home) | | + +--------+ +--------+ + + Advance Directives + + + + + | Code Status | Date | Date | Comments | | | Activated | Inactivated | | + + + + + | Full Code | 04/19/2017 | 04/22/2017 | | | | 9:08 PM | 4:50 PM | | + + + + +
--- OUTSIDE RECORDS SUMMARY | ~2020-04-29 | XMS | Encounter Summary ---
Demographics + + + | Address | [address] | | | [place] [address] | + + + | Home Phone | | + + + | Preferred Language | Unknown | + + + | Marital Status | Single | + + + | Cheondoism Affiliation | CHR | + + + [...] [place] | | | | | [address] | | + + + + + Care Team Providers + +------+ + | Care Police Captain Precinct Name | Role | Phone | + +------+ + PCP | Unavailable | + +------+ + Encounter Details +--------+ + + + + | Date | Type | Department | Care Team | Description | +--------+ + + + + | 03/10/ | Results | | Zurdo, | | | 1994 | Only | | MD [address] | | | | | | [address] | | | | | | [place] [address] | | | | | | [phone] | | | | | | | | +--------+ + + + [...] | CHEST, 1 VIEW, | Routin | 03/13/1995 | | Results for this | | PORTABLE | e | 7:13 AM | | procedure are in the | | | | PDT | | results section. | + +--------+ + + + | X-RAY CHEST 2 VIEW | Routin | 03/10/1995 | | Results for this | | | e | 7:10 PM | | procedure are in the | | | | PDT | | results section. | + +--------+ + + + documented in this encounter Results CHEST, 1 VIEW, PORTABLE (03/13/1995 7:13 AM PDT) + + + + + + | Component | Value | Ref Range | Performed | Pathologist | | | | | At | Signature | + + + + + + | CHEST, 1 | Radiologist 1: TONI, | | | | | VIEW, | NATALIE Padgett, | | | | | PORTABLE | M.D.-Radiologist 2: | | | | | | JAM KHAN, | | | | | | M.DSPRING RANDHAWA | | | | | | R. | | | | | | | | | | | | [phone] SINGLE | | | | | | PORTABLE VIEW OF THE | | | | | | CHEST: 03/13/95 at 0530 | | | | | | hrs Dictated: | | | | | | 03/13/95 Comparison is | | | | | | made to examination | | | | | | 03/12/95. FINDINGS: | | | | | | There has been removal | | | | | | of the endotracheal | | | | | | tube andnasogastric | | | | | | tube. The right | | | | | | central venous catheter | | | | | | and mediastinalchest | | | | | | drains are unaltered in | | | | | | position. The cardiac | | | | | | silhouette isunchanged. | | | | | | No pneumothorax or | | | | | | effusion is identified. | | | | | | The lungs areclear | | | | | | bilaterally. IMPRESSION: | | | | | | Removal of endotracheal | | | | | | tube and nasogastric | | | | | | tube. The lungs | | | | | | areclear. END OF | | | | | | IMPRESSION: | | | | + + + + + + + + | Specimen | + + | | + + + +---------+ + + | Performing | Address | City/State/Zipcode | Phone Number | | Organization | | | | + +---------+ + + | [facility] DEPARTMENT OF | | | | | RADIOLOGY | | | | + +---------+ + + CHEST 2 VIEW (03/10/1995 7:10 PM PDT) + + + + + + | Component | Value | Ref Range | Performed | Pathologist | | | | | At | Signature | + + + + + + | CHEST, 2 | Radiologist 1: LEIF, | | | | | [place] | JOSE J | | | | | CRISTY | Suzette.-Radiologist 2: | | | | | | CECILIA ANN | | | | | | SPRING ABBASI | | | | | | | | | | | | | | | | | | [birth year] UPRIGHT | | | | | | CHEST PA AND LATERAL, | | | | | | 03/10/95 AT 1910: | | | | | | Dictated: 03/12/95 | | | | | | Comparison is made to an | | | | | | upright AP view of the | | | | | | chest dated January. | | | | | | There are no equivalent | | | | | | comparison studies for | | | | | | the lateral. FINDINGS: | | | | | | The cardiac size is | | | | | | again noted to be at the | | | | | | upper limits of | | | | | | normal.Central pulmonary | | | | | | vasculature pattern | | | | | | appears prominent as | | | | | | before.The arch appears | | | | | | to be left-sided. The | | | | | | stomach bubble appears | | | | | | on theleft side as well. | | | | | | The lungs are grossly | | | | | | clear. No pleural | | | | | | effusionor pneumothorax | | | | | | is evident. The bones | | | | | | and soft tissues | | | | | | otherwiseappear grossly | | | | | | normal. IMPRESSION: 1. | | | | | | Persistent borderline | | | | | | enlarged heart size. 2. | | | | | | Central pulmonary | | | | | | vascular prominence | | | | | | suggesting shunt | | | | | | vascularitywhich may be | | | | | | to a ventricular septal | | | | | | defect, atrial septal | | | | | | defect orpatent ductus | | | | | | arteriosus. END OF | | | | | | IMPRESSION: | | | | + + + + + + + + | Specimen | + + | | + + + +---------+ + + | Performing | Address | City/State/Zipcode | Phone Number | | Organization | | | | + +---------+ + + | [facility] DEPARTMENT OF | | | | | RADIOLOGY | | | | + +---------+ + + documented in this encounter Visit Diagnoses Not on filedocumented in this encounter"
--- OUTSIDE RECORDS SUMMARY | ~2020-04-29 | XMS | Encounter Summary ---
Demographics + + + | Address | [address] | | | [place] [address] | + + + | Home Phone | | + + + | Preferred Language | Unknown | + + + | Marital Status | Single | + + + | Episcopal Affiliation | 1013 | + + + | Race | Unknown | + + + | Ethnic Group | Unknown | + + + Author + + + | Author | [facility] | | | and [place] | + + + | Organization | [facility] | | | and [...] [place] | | | | | [address] | | + + + + + Care Team Providers + +------+ + | Care Swimming Professor Name | Role | Phone | + +------+ + | Missy Gaston | PCP | | + +------+ + Reason for Visit +--------+--------+ + | Reason | Onset | Comments | | | Date | | +--------+--------+ + | Other | 11/19/ | | | | 2015 | | +--------+--------+ + Encounter Details +--------+ + + + + | Date | Type | Department | Care Team | Description | +--------+ + + + + | 11/19/ | Telephone | [place] | Tessa Dominguez, | Other | | 2016 | | [facility] | MD [address] | | | | | [address] | [address] [place], | | | | | [address] | [place] [address] | | | | | [address] | [phone] | | | | | [phone] | | | +--------+ + + + [...] Telephone Encounter - Tessa Dominguez MD - 11/19/2015 3:37 PM PSTThanks for the info Robin marks, but if he's continuing to feel bad, his family should take him to the hospital because rogelio howell knows what he's been doing with his meds. Electronically signed by MD nathen Calderon 11/19/2015 3:38 PM PSTTelephone Encounter - Av Galvez CMA - 11/19/2015 2:42 PM PSTRene's grandpa called because Rene has been feeling dizzy, off balance, he has been slurring his speech and his eyes have been rolling back into his head. Apparently his has not been following the instructions you for the titration off of his kep pra and onto depakote. His grandpa said he didn't want to take them because of the defects; I told him that only aplys to women when. He is now willing to start the depakote. I read the titration directions to to his grand father several times and asked him to repea t then, I also am going to fax the info to his mom. It was hard to understand his grandfather. I think that I figered out the he is still takin g keppra 500 mg bid and lamictal 400/500. [phone] signed by Av Galvez CMA at 11/19/2015 3:16 PM PSTdocume nted in this encounter Plan of Treatment Not on filedocumented as of this encounter Visit Diagnoses Not on filedocumented in this encounter"
--- OUTSIDE RECORDS SUMMARY | ~2020-04-29 | XMS | Encounter Summary ---
Demographics + + + | Address | [address] | | | [place] [address] | + + + | Home Phone | | + + + | Preferred Language | Unknown | + + + | Marital Status | Single | + + + | Lutheran Affiliation | 1013 | + + + | Race | Unknown | + + + | Ethnic Group | Unknown | + + + Author + + + | Author | [facility] | | | and [place] | + + + | Organization | [facility] | | | and [place] | + + + | Address | Unknown | + + + | Phone | Unavailable | + + + Support + + + + + | Name | Relationship | Address | Phone | + + + + + | Madny Newton | ECON | [address] | | | | | [place] | | | | | [address] | | + + + + + Care Team Providers + +------+ + | Care Banking Pin Adjuster Name | Role | Phone | + [...] + + | 12/23/ | Refill | [place] | Tessa Dominguez, | Medication Refill | | 2017 | | [facility] | MD [address] | | | | | [address] | [address] [place], | | | | | [address] | [place] [address] | | | | | [address] | [phone] | | | | | [phone] | | | +--------+--------+ + + + [...] Telephone Encounter - Av Galvez CMA - 12/23/2016 11:25 AM PDTLast filled on 09/13 and her next appt is on 01/26/17. 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
--- OUTSIDE RECORDS SUMMARY | ~2020-04-29 | XMS | Encounter Summary ---
Demographics + + + | Address | [address] | | | [place] [address] | + + + | Home Phone | | + + + | Preferred Language | Unknown | + + + | Marital Status | Single | + + + | Adventism Affiliation | CHR | + + + | Race | White | + + + | Ethnic Group | Not or | + + + Author + + + | Author | [facility] | + + + | Organization | [facility] | + + + | Address | Unknown | + + + | Phone | Unavailable | + + + Support + + + + + | Name | Relationship | Address | Phone | + + + + + | Mandy Willett | ECON | [address] | | | | | [place] | | | | | [address] | | + + + + + Care Team Providers + +------+ + | Care Parish Visitor Name | Role | Phone | + +------+ + | Missy Gaston | PCP | | + +------+ + Encounter Details +--------+ + + + + | Date | Type | Department | Care Team | Description | +--------+ + + + + | 04/21/ | Procedure | [id number] | | | | 2017 | Pass | [address] | | | | | | [facility] | | | | | | Hospital Admitting | | | | | | Desk Located on the | | | | | | 9th floor | | | | | | [place], [place] | | | | | | [address] | | | +--------+ + + + [...]
--- OUTSIDE RECORDS SUMMARY | ~2020-04-29 | XMS | Encounter Summary ---
Demographics + + + | Address | [address] | | | [place] [address] | + + + | Home Phone | | + + + | Preferred Language | Unknown | + + + | Marital Status | Single | + + + | Confucianist Affiliation | CHR | + + + | Race | White | + + + | Ethnic Group | Not or | + + + Author + + + | Author | [facility] | + + + | Organization | [facility] | + + + | Address | Unknown | + + + | Phone | Unavailable | + + + Support + + + + + | Name | Relationship | Address | Phone | + + + + + | Mandy Willett | ECON | [address] | | | | | [place] | | | | | [address] | | + + + + + Care Team Providers + +------+ + | Care Toolmaker Grade Three Name | Role | Phone | + [...] | | | | | | [facility] | | | | | | Hospital Admitting | | | | | | Desk Located on the | | | | | | 9th floor | | | | | | [place], [place] | | | | | | [address] | | | +--------+ + + + [...]
--- OUTSIDE RECORDS SUMMARY | ~2020-04-29 | XMS | Encounter Summary ---
Demographics + + + | Address | [address] | | | [place] [address] | + + + | Home Phone | | + + + | Preferred Language | Unknown | + + + | Marital Status | Single | + + + | Hindu Affiliation | CHR | + + + | Race | White | + + + | Ethnic Group | Not or | + + + Author + + + | Author | [facility] | + + + | Organization | [facility] | + + + | Address | Unknown | + + + | Phone | Unavailable | + + + Support + + + + + | Name | Relationship | Address | Phone | + + + + + | Mandy Willett | ECON | [address] | | | | | [place] | | | | | [address] | | + + + + + Care Team Providers + +------+ + | Care Shoe Sprayer Name | Role | Phone | + +------+ + PCP | Unavailable | + +------+ + Encounter Details +--------+ + + + + | Date | Type | Department | Care Team | Description | +--------+ + + + + | 04/17/ | Office | [facility] | Note, Outpatient | Progress Note | | 1998 | Visit-Trans | MEDICINE | Clinic | | | | cribed | | | | +--------+ + + [...] as of this encounter Progress Notes Interface, Product Expert In - 09/11/2006 3:10 AM PSTCLINIC DATE: 04/17/1999 [facility] SUBJECTIVE: Rene is a [age] year-old child who is 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 We have not seen him for three years. In the interim he had been getting along very well. However, earlier this month he had an episode of chest pain, which lasted no more than ten minutes but did make him go to bed. He was crying for a short time. He was seen in the Emergency Room and at that time a chest x-ray and electrocardiogram were done and by report these were normal. He has not had any recurrence of this episode. He has otherwise been a very well child and has never had any significant problems. OBJECTIVE: GENERAL: He is alert and in no distress without cyanosis. VITAL SIGNS: Weight 35.75 pounds. Height 41.5 inches. Blood pressure 90/58. Heart rate 74/minute. Arterial saturation by pulse oximeter at room air is 100%. Palpation of the precordium reveals no overactivity or thrill. His midline sternotomy scar is well healed. ABDOMEN: Negative, without hepatosplenomegaly, masses or tenderness. EXTREMITIES: He has good pulses in both and upper extremities. His pulses are synchronous. No edema is noted. No (methane) distention is noted. LUNGS: Clear to auscultation. CARDIAC: Auscultation revealed no heart murmurs. Normal heart sounds. No S-3 or S-4. ASSESSMENT/PLAN: This boy has had an excellent result from his surgery for total anomalous pulmonary venous drainage. At this time, he has no residual heart disease. I feel that he is doing very well and there is no need for any close follow-up. I therefore discharged him, telling the mother that if there were any questions certainly we would be most happy to see him again. She is responding to our biannual questionnaire and I encouraged this. This boy needs no restriction of his activities. No special precautions are necessary. Indio Hagen M.D. Tutu cc: LISA REDDY MD [address] [id number] signed by Interface, Product Expert In at 09/11/2006 3:10 AM PSTdocumented in this encounter Plan of Treatment Not on filedocumented as of this encounter Visit Diagnoses Not on filedocumented in this encounter"
--- OUTSIDE RECORDS SUMMARY | ~2020-04-29 | XMS | Encounter Summary ---
Demographics + + + | Address | [address] | | | [place] [address] | + + + | Home Phone | | + + + | Preferred Language | Unknown | + + + | Marital Status | Single | + + + | Rastafari Affiliation | CHR | + + + | Race | White | + + + | Ethnic Group | Not or | + + + Author + + + | Author | [facility] | + + + | Organization | [facility] | + + + | Address | Unknown | + + + | Phone | Unavailable | + + + Support + + + + + | Name | Relationship | Address | Phone | + + + + + | Mandy Mcnamara | ECON | [address] | | | | | [place] | | | | | [address] | | + + + + + Care Team Providers + +------+ + | Care Wall Insulation Sprayer Name | Role | Phone | [...] [address] | | | | | | [place], [place] | | | | | | [address] | | | +--------+ + + + [...] as of this encounter Progress Notes Interface, Mantel Craftsman In - 01/14/2007 5:03 AM PDT [address] [address] [facility] Phone #: , , Fax #: February 05, 1995 CARDIAC SURGERY CONFERENCE NOTE RE:Spring Mcnamara MR#:[id number] :[birth year] Spring is a [id number] who recently presented as an outpatient to [...] to assess for stenosis. Phil Atkins M.D. Frit Maker of Pediatrics Department of Pediatric Cardiology MR:chc February 06, 1995 nterface, Mantel Craftsman In - 01/14/2007 5:03 AM PDT [address] [address] [facility] Phone #: , , Fax #: February 04, 1995 LISA SALAS MD [address] [address] RE:SPRING MCNAMARA MR:[id number] Salas: It [...] It was very astute of you to picket labor union the fact that this child had congenital heart disease. The parents are, of course, very pleased with you as their physician. When surgery is scheduled we will let you know that date, and will remain in touch with you throughout this period. If any questions should arise at any time, please do not hesitate to give us a call. Sincerely, Tohmas Diaz M.D. Fellow, Pediatric Cardiology Kinga Rodgers M.D. Frit Maker, Pediatrics Pediatric Cardiology BH:lakia February 05, 1995 documented in this encounter Plan of Treatment Not on filedocumented as of this encounter Visit Diagnoses Not on filedocumented in this encounter"
--- OUTSIDE RECORDS SUMMARY | ~2020-04-29 | XMS | Encounter Summary ---
Demographics + + + | Address | [address] | | | [place] [address] | + + + | Home Phone | | + + + | Preferred Language | Unknown | + + + | Marital Status | Single | + + + | Mandaen Affiliation | CHR | + + + | Race | White | + + + | Ethnic Group | Not or | + + + Author + + + | Author | [facility] | + + + | Organization | [facility] | + + + | Address | Unknown | + + + | Phone | Unavailable | + + + Support + + + + + | Name | Relationship | Address | Phone | + + + + + | Mandy Willett | ECON | [address] | | | | | [place] | | | | | [address] | | + + + + + Care Team Providers + +------+ + | Care Math And Physics Instructor Name | Role | Phone | + +------+ + PCP | Unavailable | + +------+ + Encounter Details +--------+ + + + + | Date | Type | Department | Care Team | Description | +--------+ + + + + | 03/17/ | Discharge | Allergy Clinic at | Summary, Discharge | D/C Summary ODDS | | 1994 | Summary-Tra | [address] | | | | | nscribed | [address] | | | | | | Krunal [address] | | | | | | [facility], [facility] floor | | | | | | [place], [place] | | | | | | [address] | | | | | | [phone] | | | +--------+ + + + [...] + + documented as of this encounter Discharge Summaries Interface, Strategy Lead In - 01/06/2007 6:13 AM PDT [address] [address] [facility] MEDICAL SUMMARY OF HOSPITALIZATION Med Rec No.: [id number] Admission Date: 03/10/95 Name: Rene Willett Discharge Date: 03/17/95 STAFF PHYSICIAN: Alex Valenzuela M.D. 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 PRINCIPAL PROCEDURE: Correction of total anomalous pulmonary venous connection. REASON FOR ADMISSION: The patient is a hfz-byonz-dba male born at age 37 weeks' by induced labor for pre-eclampsia. The patient had no problems in the period, however, at six weeks during a routine checkup, the patient was found to have a heart murmur which, upon evaluation by echocardiogram was proved to be secondary to a total anomalous pulmonary venous return. The patient remained asymptomatic with this, without evidence of cyanosis, coughing or retractions. His 02 saturation on room air, however, was found to be 86%, therefore, he was referred to the cardiothoracic surgeons for further evaluation. PHYSICAL EXAMINATION: VITAL SIGNS: Temperature 37 , pulse 160, respiratory rate 60. LUNGS: Clear to auscultation. CARDIOVASCULAR: Regular rate and rhythm. EXTREMITIES: No clubbing, cyanosis or edema. ELECTROCARDIOGRAM: Right ventricular hypertrophy. Right heart volume overload with total anomalous pulmonary venous return connection to left vertical vein (standard supracardiac connection) with question of pulmonic valve stenosis with increased velocity in the PA seen. LABORATORY DATA: Sodium 136, potassium 5.6, chloride 106, C02 21, BUN 9, creatinine 0.3, glucose 89. White blood cell count 8400, hematocrit 41.3, platelet count 365,000. Prothrombin time 12.5, partial thromboplastin time 30.3. HOSPITAL COURSE: The patient was admitted on 03/10/95 at which time he underwent extensive evaluation to undergo surgery which failed to show any contraindication to proceed. Therefore, the patient was taken to the Operating Room on 03/11/95 at which time he underwent total anomalous pulmonary venous connection repair. Please see the operative report summary for details. The patient was transferred to section 3 Intensive Care Unit for postoperative management, where the patient was slowly weaned from Isuprel support and was extubated on postoperative day one. Dopamine was weaned, and chest tubes were removed on postoperative day two. By postoperative day three, the patient was deemed ready for transport to the [facility] where he was continued on oral Lasix. The patient soon received postoperative echocardiogram which demonstrated widely patent left atrial anastomosis with mild residual right ventricular enlargement. Dr. Atkins assessed the echocardiogram as demonstrating normal ventricular function. In light of the patient's excellent progress, he was deemed ready for discharge home on postoperative day six, with follow up in the Pediatric Cardiology Clinic. All stitches were removed including pacer wires, there were no complications. CONDITION ON DISCHARGE: Stable. DISCHARGE INSTRUCTION(S): Discharge Medications: Lasix, 5 mg p.o. q. day. Tylenol, 75 mg p.o. q. 4 p.r.n. Follow-up Recommendations: Follow up in the Pediatric Cardiology Clinic in one month. Discharge Activity: Normal. Discharge Diet: Normal. Kristi Renner M.D. Resident, Surgery Alex Valenzuela M.D. Professor, Surgery Chief, Division of Cardiopulmonary Surgery ANNA/juana A cc: LISA REDDY MD [address] [place] [address] documented in this encounter Plan of Treatment Not on filedocumented as of this encounter Visit Diagnoses Not on filedocumented in this encounter"
--- OUTSIDE RECORDS SUMMARY | ~2020-04-29 | XMS | Encounter Summary ---
Demographics + + + | Address | [address] | | | [place] [address] | + + + | Home Phone | | + + + | Preferred Language | Unknown | + + + | Marital Status | Single | + + + | Hindu Affiliation | 1013 | + + + | Race | Unknown | + + + | Ethnic Group | Unknown | + + + Author + + + | Author | [facility] | | | and [place] | + + + | Organization | [facility] | | | and [...] TH | | | | | [place] | | | | | [address] | | + + + + + Care Team Providers + +------+ + | Care Hand Upper And Bottom Lacer Name | Role | Phone | + +------+ + | Missy Gaston | PCP | | + +------+ + Reason for Referral Evaluate & Treat (Elective) +--------+ + + + + + | Status | Reason | Specialty | Diagnoses / | Referred By | Referred To | | | | | Procedures | Contact | Contact | +--------+ + + + + + | Closed | Patient | Neurology | Diagnoses | Angelica, | | | | Preference | | | MD Tessa | | | | | | Nonintractab | [address] | | | | | | [address] | [address] [place] | | | | | | generalized | [address] | | | | | | idiopathic | [place] | | | | | | epilepsy | [address] | | | | | | with status | Phone: | | | | | | epilepticus | [phone] | | | | | | ([facility]) | Fax: | | | | | | | [phone] | | +--------+ + + + + + Reason for Visit +--------+--------+ + | Reason | Onset | Comments | | | Date | | +--------+--------+ + | Other | 04/19/ | | | | 2017 | | +--------+--------+ + Encounter Details +--------+ + + + + | Date | Type | Department | Care Team | Description | +--------+ + + + + | 07/24/ | Telephone | [place] | Tessa Dominguez, | Other | | 2018 | | [facility] | MD [address] | | | | | [address] | [address] [place], | | | | | [address] [place], [place] | [place] [address] | | | | | [address] | [phone] | | | | | [phone] | | | +--------+ + + + [...] encounter Miscellaneous Notes Telephone Encounter - Erasmo Wu Piped Pocket Machine Operator - 04/19/2018 2:20 PM PDTCalled a nd let Jayden know we are setting up a referral to [facility] Fernando, with Dr. Meade. If he has any questions, is to call back elephone Encounter - Erasmo Wu Piped Pocket Machine Operator - 03/28 12:03 PM PDTRene's grandfather called to get a referral to a Neurologist closer to where they live, preferably in the [facility]. 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
--- OUTSIDE RECORDS SUMMARY | ~2020-04-29 | XMS | Clinical Summary ---
Demographics + + + | Address | [address] | | | [place] [address] | + + + | Home Phone | | + + + | Preferred Language | Unknown | + + + | Marital Status | Single | + + + | Mormon Affiliation | CHR | + + + [...] [place] | | | | | [address] | | + + + + + Care Team Providers + +------+ + | Care Solar Energy Sales Specialist Name | Role | Phone | + +------+ + | Missy Gaston | PCP | | + +------+ + Source Comments RAAD is fully live on both [facility] and [facility] InPatient.[facility] Allergies No Known Allergies Medications + + [...] | | | | | | | [address] | | + +--------+ +--------+ + +--------+ | MEDICAID [place] | OHP | xxxxxxxx | 11/26/19 | [phone] | [address] | [address] | | | PLUS | | [address] | [address] | [address] | id | | | OPEN | | sent | | [place], [place] | | | | CARD | | | | [address] | | + +--------+ +--------+ + +--------+ [...] | 1996 | [phone] | [place] [address] | | | [address] | | | [...]
--- OUTSIDE RECORDS SUMMARY | ~2020-04-29 | XMS | Encounter Summary ---
Demographics + + + | Address | [address] | | | [place] [address] | + + + | Home Phone | | + + + | Preferred Language | Unknown | + + + | Marital Status | Single | + + + | Oriental Orthodox Affiliation | 1013 | + + + | Race | Unknown | + + + | Ethnic Group | Unknown | + + + Author + + + | Author | [facility] | | | and [place] | + + + | Organization | [facility] | | | and [...] [place] | | | | | [address] | | + + + + + Care Team Providers + +------+ + | Care Implementation Technician Name | Role | Phone | + +------+ + | Missy Gaston | PCP | | + +------+ + Reason for Visit + +--------+ + | Reason | Onset | Comments | | | Date | | + +--------+ + | Seizures | 11/24/ | | | | 2018 | | + +--------+ + Encounter Details +--------+ + + + + | Date | Type | Department | Care Team | Description | +--------+ + + + + | 11/24/ | Telephone | [place] | Tessa Dominguez, | Seizures | | 2018 | | [facility] | MD [address] | | | | | [address] | [address] [place], | | | | | [address] [place] | [place] [address] | | | | | [address] | [phone] | | | | | [phone] | | | +--------+ + + + [...] Telephone Encounter - Marley Chopra RN - 11/24/2017 2:51 PM PSTI called and explai yarelis this to Mr. Mendez. Trough level explained. Order faxed to [facility] in [facility]. Previous order was still good. elephone Encounter - Tessa Dominguez MD - 11/24/2017 2:40 PM PS TPlease have him check his levels of his anticonvulsants. I think he's suppose to be on art ictal 300 mg twice daily but make sure what he's taking. He has had a history of noncomplia nce in the past. He was suppose to get his lamictal checked previously and I don't see if h e ever did so. emarciaphon e Encounter - Erasmo Wu, Research Interviewer - 11/24/2017 1:34 PM PSTPt has had 2 seiz ures today, with no provoking factors. He's been current on his meds and hasn't added any ne w ones. No alcohol/drugs, good sleep, and no stress. Pt wondering if it could be med problem . yajairam ented in this encounter Plan of Treatment Not on filedocumented as of this encounter Visit Diagnoses Not on filedocumented in this encounter"
--- OUTSIDE RECORDS SUMMARY | ~2020-04-29 | XMS | Encounter Summary ---
Demographics + + + | Address | [address] | | | [place] [address] | + + + | Home Phone | | + + + | Preferred Language | Unknown | + + + | Marital Status | Single | + + + | Adventism Affiliation | 1013 | + + + | Race | Unknown | + + + | Ethnic Group | Unknown | + + + Author + + + | Author | Located Within [facility] | | | and [place] | + + + | Organization | Located Within [facility] | | | and [...] [place] | | | | | [address] | | + + + + + Care Team Providers + +------+ + | Care Freight Manager Name | Role | Phone | + +------+ + PCP | Unavailable | + +------+ + Encounter Details +--------+ + + + + | Date | Type | Department | Care Team | Description | +--------+ + + + + | 04/07/ | Hospital | [facility] | Conversion | Total Anomalous | | 2009 | Encounter | ECHO [address] | Transaction, | Pulmonary Venous | | | | [place], [place] | Provider Unknown | Connection (TAPVC), | | | | [address] | [phone] | Supracardiac | | | | [phone] | | | +--------+ + + + [...] | + +--------+ + + + | ECHO CONGENITAL | Routin | 04/07/2010 | | Results for this | | ABNORMALITY | e | 9:48 AM | | procedure are in the | | | | PDT | | results section. | + +--------+ + + + documented in this encounter Results ECHO Congenital Abnormality (04/07/2010 9:48 AM PDT) + + | Specimen | + + | | + + + + + | Impressions | Performed At | + + + | | | + + + + + + | Narrative | Performed At | + + + | [address] [address] Phone: | | | Pediatric Transthoracic | | | Echocardiogram Patient Name: SPRING MCNAMARA / Age: | | | 1995 / 14 years Pt. | | | Gender: M Height: | | | 167.90 cm Exam Date: 04/07/2010 Weight: | | | 51.90 kg BSA: | | | 1.55 m2 Location: Outpatient BP: | | | 119 / 66 mmHg EKG: Sinus rhythm HR: | | | 72 bpm. Primary Environmental Quality Analyst: Inderjit House MD Referring | | | Physician: Jhoan Washington MD Indications: TAPVR Study Details: | | | Complete Congenital Echo - 30838 RAD#[id number], Cardiac Doppler - 78853, | | | and Color Flow Imaging - [id number] The images are of adequate diagnostic | | | quality The patient is awake. Summary: 1. 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 2. No evidence of residual shunt, | | | venous obstruction, or pulmonary hypertension. 3. Normal cardiac | | | anatomy and function. 4. Trace tricuspid regurgitation. 5. | | | Trace mitral regurgitation. Situs: Viscero-atrial situs is | | | normal. Systemic Veins: The IVC is right-sided, entering the | | | atrium in a normal fashion. The SVC is not well-visualized. There | | | appears to be a normal innominate vein. Pulmonary Veins: The | | | pulmonary venous return is normal. There does not appear to be any | | | obstruction of flow from the pulmonary venous chamber to the LA. | | | Atria: Left atrial size is normal. Right atrial size is normal. There | | | is no atrial septal defect detected. No evidence of a patent | | | foramen ovale. Atrioventricular Connections: The atrioventricular | | | connections are concordant. Mitral Valve: The mitral valve | | | leaflets are normal in appearance. Trace mitral regurgitation is | | | present. Left Ventricle: Left ventricular size is normal. There | | | is no evidence of left ventricular hypertrophy. Left ventricular | | | systolic function is normal. The left ventricular diastolic function | | | appears normal, as indicated by the Doppler filling signal. Left | | | Ventricular Outflow Tract: There is no evidence of left ventricular | | | outflow tract obstruction. Tricuspid Valve: The tricuspid valve | | | leaflets are normal (with good mobility and coaptation) in | | | appearance. Trace tricuspid regurgitation is present. The TR velocity | | | is not fully interrogated, but the record we have is less than 2 | | | m/sec. This is consistent with normal RV and PA pressure. Right | | | Ventricle: The right ventricular chamber is of normal size. There is | | | no evidence of right ventricular hypertrophy. Right ventricular | | | systolic function appears normal. The right ventricular diastolic | | | function appears normal,as indicated by the Doppler filling signal. | | | Aortic Valve: The aortic valve is composed of three leaflets, | | | which appear normally formed. No degree of aortic regurgitation is | | | present. Aorta: The aortic root, sinuses and ascending aorta | | | appear normal. The aorta forms a left aortic arch. The Doppler flow | | | profile in the aortic arch and abdominal aorta shows systolic flow, | | | consistent with no significant obstruction. Pulmonic Valve: The | | | pulmonic valve is normal. No significant pulmonary regurgitation is | | | seen. Pulmonary Arteries: The main, right and left pulmonary | | | arteries appear all normal. Coronary Arteries: The origins of the | | | left and right coronary arteries are normal. | | | Inderjit House MD Electronically | | | signed on 04/07/2010 at 10:11:07 AM. Study has been marked as read: | | | true. Journeyman Level Acoustic Analyst: Laina Ojeda RDCS | | | | | | ----- - 2D / M-Mode Measurements RVAW mm RVd | | | mm AOd 23.80 mm IVSd 8.39 mm LAs-2D | | | mm LVED 47.10 mm LAs-M-Mode 26.60 mm LVES 28.90 mm ACS | | | mm LVPWd 9.32 mm EPSS mm | | | FS 38.6 % LVOT mm EF 69.0 % | | | | | | ----- - Sedation: Location: Right Ventricle Outflow Tract: | | | Single Ventricle: Ventricular Septum: Patent Ductus Arteriosus: | | | Pericardium: Interventional / Surgical Procedures: Surgical | | | Shunts/Conduits: Comparisons: cc: cc: cc: | | + + + + + | Procedure Note | + + | Ry, Rad Conversion - 07/14/2019 6:50 PM PDT | | [facility] | | | | [address] [place] [address] | | [place] [address] | | | | | | | | Pediatric Transthoracic Echocardiogram | | | | Patient Name: SPRING MCNAMARA / Age: 2 1995 / years | | Pt. Gender: M | | Height: 167.90 cm | | Exam Date: 04/07/2010 Weight: 51.90 kg | | BSA: 1.55 m2 | | Location: Outpatient BP: 119 / 66 mmHg | | EKG: Sinus rhythm HR: 72 bpm. | | | | Primary Environmental Quality Analyst: Inderjit House MD | | | | Referring Physician: Jhoan Washington MD | | | | Indications: TAPVR | | | | Study Details: Complete Congenital Echo - 24512 RAD#[id number], Cardiac Doppler | | - 00214, and Color Flow Imaging - [id number] The images are of adequate | | diagnostic quality The patient is awake. | | | | Summary: | | 1. 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 | | | | 2. No evidence of residual shunt, venous obstruction, or pulmonary | | hypertension. | | | | 3. Normal cardiac anatomy and function. | | | | 4. Trace tricuspid regurgitation. | | | | 5. Trace mitral regurgitation. | | | | Situs: | | Viscero-atrial situs is normal. | | | | Systemic Veins: | | The IVC is right-sided, entering the atrium in a normal fashion. The SVC is | | not well-visualized. There appears to be a normal innominate vein. | | | | Pulmonary Veins: | | The pulmonary venous return is normal. There does not appear to be any | | obstruction of flow from the pulmonary venous chamber to the LA. | | | | Atria: | | Left atrial size is normal. Right atrial size is normal. There is no atrial | | septal defect detected. No evidence of a patent foramen ovale. | | | | Atrioventricular Connections: | | The atrioventricular connections are concordant. | | | | Mitral Valve: | | The mitral valve leaflets are normal in appearance. Trace mitral | | regurgitation is present. | | | | Left Ventricle: | | Left ventricular size is normal. There is no evidence of left ventricular | | hypertrophy. Left ventricular systolic function is normal. The left | | ventricular diastolic function appears normal, as indicated by the Doppler | | filling signal. | | | | Left Ventricular Outflow Tract: | | There is no evidence of left ventricular outflow tract obstruction. | | | | Tricuspid Valve: | | The tricuspid valve leaflets are normal (with good mobility and coaptation) | | in appearance. Trace tricuspid regurgitation is present. The TR velocity | | is not fully interrogated, but the record we have is less than 2 m/sec. | | This is consistent with normal RV and PA pressure. | | | | Right Ventricle: | | The right ventricular chamber is of normal size. There is no evidence of | | right ventricular hypertrophy. Right ventricular systolic function appears | | normal. The right ventricular diastolic function appears normal,as | | indicated by the Doppler filling signal. | | | | Aortic Valve: | | The aortic valve is composed of three leaflets, which appear normally | | formed. No degree of aortic regurgitation is present. | | | | Aorta: | | The aortic root, sinuses and ascending aorta appear normal. The aorta forms | | a left aortic arch. The Doppler flow profile in the aortic arch and | | abdominal aorta shows systolic flow, consistent with no significant | | obstruction. | | | | Pulmonic Valve: | | The pulmonic valve is normal. No significant pulmonary regurgitation is | | seen. | | | | Pulmonary Arteries: | | The main, right and left pulmonary arteries appear all normal. | | | | Coronary Arteries: | | The origins of the left and right coronary arteries are normal. | | | | | | Inderjit House MD | | Electronically signed on 04/07/2010 at 10:11:07 AM. Study has been marked | | as read: true. | | | | Journeyman Level Acoustic Analyst: Laina Ojeda RDCS | | | | | | - | | 2D / M-Mode Measurements | | RVAW mm | | RVd mm AOd 23.80 mm | | IVSd 8.39 mm LAs-2D mm | | LVED 47.10 mm LAs-M-Mode 26.60 mm | | LVES 28.90 mm ACS mm | | LVPWd 9.32 mm EPSS mm | | FS 38.6 % LVOT mm | | EF 69.0 % | | | | | | - | | Sedation: | | | | Location: | | | | Right Ventricle Outflow Tract: | | Single Ventricle: | | Ventricular Septum: | | Patent Ductus Arteriosus: | | Pericardium: | | Interventional / Surgical Procedures: | | Surgical Shunts/Conduits: | | Comparisons: | | | | cc: cc: cc: | | | | | | IMPRESSION: | | | + + documented in this encounter Visit Diagnoses + + | Diagnosis | + + | Total anomalous pulmonary venous connection (TAPVC), 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
--- OUTSIDE RECORDS SUMMARY | ~2020-04-29 | XMS | Encounter Summary ---
Demographics + + + | Address | [address] | | | [place] [address] | + + + | Home Phone [...] [place] | | | | | [address] | | + + + + + Care Team Providers + +------+ + | Care Senior Energy Market Coordinator Name | Role | Phone | + +------+ + | Missy Gaston | PCP | | + +------+ + Reason for Visit AUTH/CERT +--------+--------+ + + + + | [...] + + + + | 04/21/ | Anesthesia | 6A Intra Op [id number] | Duncan Leon, | | | 2017 | Event | JAE [place] | MD [address] | | | | | [facility] | [address] | | | | | Hospital Admitting | [place], [place] | | | | | Desk Located on the | [address] | | | | | 9th floor | [phone] | | | | | [place], [place] | | | | | | [address] | Akbar Montoya CRNA | | | | | | [address] | | | | | | Latonia Rizvi [facility] | | | | | [place] [address] | | | | | | [phone] | | | | | | | | +--------+ + + + + Anesthesia Record + + + + + | Procedure Name | Responsible | Anesthesia Start | Anesthesia Stop Time | | | Anesthesiologist | Time | | + + + + + | BILATERAL ARCH BAR | Duncan Leon MD | 04/21/17 1026 | 04/21/17 1304 | | PLACEMENT; REDUCTION | | | | | OF RIGHT CONDYLAR | | | | | AND LEFT MANDIBULAR | | | | | FRACTURES (Bilateral | | | | | Mouth) | | | | + + + + + +----+---+ + + | Da | T | Event | Comment | | te | i | | | | | m | | | | | e | | | +----+---+ + + | 07 | 0 | Eq Check | Anesthesia machine checked Equipment verified | | /2 | 9 | | | | 6/ | 5 | | | | 20 | 5 | | | | 17 | | | | +----+---+ + + | | 1 | | | | | 0 | | | | | 2 | | | | | 6 | | | +----+---+ + + | | 1 | Pt. Check | Prior to anesthesia start, pt. Identified, examined, chart | | | 0 | | reviewed, PARQ held, anesthetic plan made or approved by | | | 2 | | attending anesthesiologist. NPO status confirmed as appropriate | | | 6 | | for procedure Preoperative evaluation: unchanged | +----+---+ + + | | 1 | An Start | | | | 0 | | | | | 2 | | | | | 6 | | | +----+---+ + + | | 1 | An Start | | | | 0 | Data | | | | 3 | | | | | 1 | | | +----+---+ + + | | 1 | An Start | | | | 0 | Data | | | | 3 | | | | | 2 | | | +----+---+ + + | | 1 | Vitals | Monitors applied Vital signs checked Patient ready for anesthesia | | | 0 | Checked | | | | 3 | | | | | 7 | | | +----+---+ + + | | 1 | Quick Note | After induction of anesthesia, left nares was sprayed with Afrin | | | 0 | | and subsequently dilated with nasal trumpets X 3 times | | | 4 | | (progressively sizing up to dilate for nasal intubation) Easy | | | 4 | | nasal intubation using glidescope | +----+---+ + + | | 1 | ETT | | | | 0 | | | | | 4 | | | | | 5 | | | +----+---+ + + | | 1 | Ready | | | | 0 | | | | | 4 | | | | | 5 | | | +----+---+ + + | | 1 | Abx | | | | 1 | Administere | | | | 0 | d | | | | 5 | | | +----+---+ + + | | 1 | Incision | | | | 1 | | | | | 1 | | | | | 3 | | | +----+---+ + + | | 1 | Surgery end | | | | 2 | | | | | 3 | | | | | 0 | | | +----+---+ + + | | 1 | An Extubate | Neuromuscular function Intact. Pharynx suctioned. Patient obeys | | | 2 | | commands. Adequate pulmonary mechanics. | | | 5 | | | | | 6 | | | +----+---+ + + | | 1 | an stop | | | | 3 | data | | | | 0 | | | | | 0 | | | +----+---+ + + | | 1 | PACU Rpt | | | | 3 | Given | | | | 0 | | | | | 4 | | | +----+---+ + + | | 1 | Anesthesia | | | | 3 | End | | | | 0 | | | | | 4 | | | +----+---+ + + +------+ | Meds | +------+ + + + | Name | Total | + + + | midazolam | 2 mg | + + + | fentaNYL | 300 mcg | + + + | lidocaine 2% | 80 mg | + + + | propofol | 250 mg | + + + | rocuronium | 50 mg | + + + | glycopyrrolate | 0.6 mg | + + + | ceFAZolin | 2,000 mg | + + + | PHENYLEPHrine | 200 mcg | + + + | custom medication (see comments) | 1 g | + + + | dexamethasone | 10 mg | + + + | ondansetron | 4 mg | + + + | esmolol | 20 mg | + + + | HYDROmorphone | 2 mg | + + + | neostigmine | 3 mg | + + + | lactated Ringers IV | 1,700 mL | + + + + + | Name | + + | O2 FR Avance (Total Liters) | + + | Air FR Avance (l/min) | + + | Insp Sevo | + + | Et Sevo | + + | EtN2O % | + + | Insp N2O % | + + + + | No blood administrations on file. | + + +--------+ + + + | Type | Details | Placement | Removal | +--------+ + + + | Incisi | 04/21/17; 1120; MD; jaw | 04/21/17 1120 by | | | on | | Tierra Dean RN | | +--------+ + + + | Periph | 04/21/17; 0443; Right; Medial; | 04/21/17 0443 by | 04/22/17 09 by | | tio | Forearm; 22 g; Lidocaine; No; | Brayan Bueno RN | Kasia Storey | | IV | Positive; 04/22/17; 0909 | | MARIANA Dickens | +--------+ + + + documented in this encounter Social History + +-------+ +--------+------+ | Tobacco [...] | + +--------+ + + + | ANA MARIA ETT | Routin | 04/21/2017 | | Results for this | | | e | 1:20 PM | | procedure are in the | | | | PDT | | results section. | + +--------+ + + + documented in this encounter Results ANA MARIA ETT (04/21/2017 1:20 PM PDT) + + + | Narrative | Performed At | + + + | David Taylor CRNA 04/21/2017 11:39 AM Procedure Reason | | | for Intubation: For surgical procedure, Location Performed: [place] , | | | Patient was preoxygenated Mask Ventilation Grade 1 - Ventilated by | | | mask Intubation Atraumatic laryngoscopy: Atraumatic Laryngoscopy, | | | Laryngoscopic view: Grade I, Fiberoptics used: Glidescope , Number | | | of Attempts: 1, Positive for EtCO2: Yes, Breath sounds: Bilateral | | | and equal ETT Ett Adult: SORAYA, Nasal cuffed ETT Size: 7.5 | | | ETT secured with: adhesive tape Depth at Nares: 26 Cm Airway | | | leak: No Narrative Attending physically present Atraumatic | | | intubation Left nares Teeth, lips, gums, tongue all in preop | | | condition following intubation | | + + + documented in this encounter Visit Diagnoses Not on filedocumented in this encounter Administered Medications + +--------+ + +------+------+ | Medication Order | MAR | Action | Dose | Rate | Site | | | Action | Date | | | | + +--------+ + +------+------+ | ceFAZolin (ANCEF) injection | Given | 04/21/20 | 2,000 mg | | | | intravenous, INTRAPROCEDURE PRN, | | 17 11:05 | | | | | Starting Wed04/21/17 at 1105, | | AM PDT | | | | | Until Wed04/21/17 at 1259 | | | | | | + +--------+ + +------+------+ +---+---+ | | | +---+---+ + +-------+ +-------+---+---+ | dexamethasone (DECADRON) | Given | 04/21/20 | 10 mg | | | | injection INTRAPROCEDURE PRN, | | 17 11:00 | | | | | Starting Wed04/21/17 at 1100, | | AM PDT | | | | | Until Wed04/21/17 at 1259 | | | | | | + +-------+ +-------+---+---+ +---+---+ | | | +---+---+ + +-------+ +-------+---+---+ | esmolol (BREVIBLOC) injection | Given | 04/21/20 | 20 mg | | | | intravenous, INTRAPROCEDURE PRN, | | 17 12:09 | | | | | Starting Wed04/21/17 at 1209, | | PM PDT | | | | | Until Wed04/21/17 at 1259 | | | | | | + +-------+ +-------+---+---+ +---+---+ | | | +---+---+ + +-------+ +--------+---+---+ | fentaNYL citrate (PF) | Given | 04/21/20 | 50 mcg | | | | (SUBLIMAZE) injection | | 17 12:00 | | | | | INTRAPROCEDURE PRN, Starting Wed | | PM PDT | | | | | 04/21/17 at 1032, Until Wed | | | | | | | 04/21/17 at 1259 | | | | | | + +-------+ +--------+---+---+ +-------+ +---------+---+---+ | Given | 04/21/20 | 50 mcg | | | | | 17 11:42 | | | | | | AM PDT | | | | +-------+ +---------+---+---+ | Given | 04/21/20 | 200 mcg | | | | | 17 10:32 | | | | | | AM PDT | | | | +-------+ +---------+---+---+ +---+---+ | | | +---+---+ + +-------+ +--------+---+---+ | glycopyrrolate (VAL) | Given | 04/21/20 | 0.4 mg | | | | injection INTRAPROCEDURE PRN, | | 17 12:20 | | | | | Starting Wed04/21/17 at 1105, | | PM PDT | | | | | Until Wed04/21/17 at 1259 | | | | | | + +-------+ +--------+---+---+ +-------+ +--------+---+---+ | Given | 04/21/20 | 0.2 mg | | | | | 17 11:05 | | | | | | AM PDT | | | | +-------+ +--------+---+---+ +---+---+ | | | +---+---+ + +-------+ +------+---+---+ | HYDROmorphone (DILAUDID) | Given | 04/21/20 | 1 mg | | | | injection INTRAPROCEDURE PRN, | | 17 12:09 | | | | | Starting Wed04/21/17 at 1209, | | PM PDT | | | | | Until Wed04/21/17 at 1259 | | | | | | + +-------+ +------+---+---+ +-------+ +------+---+---+ | Given | 04/21/20 | 1 mg | | | | | 17 10:32 | | | | | | AM PDT | | | | +-------+ +------+---+---+ +---+---+ | | | +---+---+ + + [...] | | +---+---+ + +-------+ +-------+---+---+ | lidocaine (XYLOCAINE MPF) 2 % | Given | 04/21/20 | 80 mg | | | | (20 mg/mL) injection | | 17 10:39 | | | | | INTRAPROCEDURE PRN, Starting Wed | | AM PDT | | | | | 04/21/17 at 1039, Until Wed | | | | | | | 04/21/17 at 1259 | | | | | | + +-------+ +-------+---+---+ +---+---+ | | | +---+---+ + +-------+ +------+---+---+ | midazolam (VERSED) injection | Given | 04/21/20 | 2 mg | | | | INTRAPROCEDURE PRN, Starting Wed | | 17 10:26 | | | | | 04/21/17 at 1026, Until Wed | | AM PDT | | | | | 04/21/17 at 1259 | | | | | | + +-------+ +------+---+---+ +---+---+ | | | +---+---+ + +-------+ +------+---+---+ | neostigmine (PROSTIGMIN) | Given | 04/21/20 | 3 mg | | | | injection intravenous, | | 17 12:20 | | | | | INTRAPROCEDURE PRN, Starting Wed | | PM PDT | | | | | 04/21/17 at 1220, Until Wed | | | | | | | 04/21/17 at 1259 | | | | | | + +-------+ +------+---+---+ +---+---+ | | | +---+---+ + +-------+ +------+---+---+ | ondansetron (ZOFRAN) injection | Given | 04/21/20 | 4 mg | | | | INTRAPROCEDURE PRN, Starting Wed | | 17 11:00 | | | | | 04/21/17 at 1100, Until Wed | | AM PDT | | | | | 04/21/17 at 1259 | | | | | | + +-------+ +------+---+---+ +---+---+ | | | +---+---+ + +-------+ +-----+---+---+ | OPTIME - CUSTOM INTRAPROCEDURE | Given | 04/21/20 | 1 g | | | | PRN, Starting 04/21/17 at | | 17 11:34 | | | | | 1134, Until 04/21/17 at 1259 | | AM PDT | | | | + +-------+ +-----+---+---+ +---+---+ | | | +---+---+ + +-------+ +---------+---+---+ | PHENYLEPHrine 100 mcg/mL IV | Given | 04/21/20 | 100 mcg | | | | syringe INTRAPROCEDURE PRN, | | 17 11:18 | | | | | Starting Wed04/21/17 at 1109, | | AM PDT | | | | | Until Wed04/21/17 at 1259 | | | | | | + +-------+ +---------+---+---+ +-------+ +---------+---+---+ | Given | 04/21/20 | 100 mcg | | | | | 17 11:09 | | | | | | AM PDT | | | | +-------+ +---------+---+---+ +---+---+ | | | +---+---+ + +-------+ +-------+---+---+ | propofol INTRAPROCEDURE PRN, | Given | 04/21/20 | 50 mg | | | | Starting Wed04/21/17 at 1040, | | 17 10:43 | | | | | Until Wed04/21/17 at 1259 | | AM PDT | | | | + +-------+ +-------+---+---+ +-------+ +--------+---+---+ | Given | 04/21/20 | 200 mg | | | | | 17 10:40 | | | | | | AM PDT | | | | +-------+ +--------+---+---+ +---+---+ | | | +---+---+ + +-------+ +-------+---+---+ | rocuronium (ZEMURON) injection | Given | 04/21/20 | 50 mg | | | | INTRAPROCEDURE PRN, Starting Wed | | 17 10:41 | | | | | 04/21/17 at 1041, Until Wed | | AM PDT | | | | | 04/21/17 at 1259 | | | | | | + +-------+ +-------+---+---+ +---+---+ | | | +---+---+ documented in this encounter"
--- OUTSIDE RECORDS SUMMARY | ~2020-04-29 | XMS | Encounter Summary ---
Demographics + + + | Address | [address] | | | [place] [address] | + + + | Home Phone | | + + + | Preferred Language | Unknown | + + + | Marital Status | Single | + + + | Tenriism Affiliation | 1013 | + + + | Race | Unknown | + + + | Ethnic Group | Unknown | + + + Author + + + | Author | [facility] | | | and Augustinana | + + + | Organization | [facility] | | | and Augustinana [...] [place], [place] | | | | | [address] | | + + + + + Care Team Providers + +------+ + | Care Account Strategist Name | Role | Phone | + [...] | | | | disorder | [place] [address] | [address] | | | | | Procedures | [address] | [address] | | | | | Follow UP | [place] | [place] | | | | | | [address] | [address] Phone: | | | | | | Phone: | [phone] | | | | | | [phone] | Fax: | | | | | | Fax: | [phone] | | | | | | [phone] | | +--------+--------+ + + + + Encounter Details +--------+---------+ + + + | Date | Type | Department | Care Team | Description | +--------+---------+ + + + | 01/25/ | Office | [facility] | Tessa Dominguez, | Nonintractable | | 2017 | Visit | [facility] | [address] | generalized | | | | [address] | [address] [place], | idiopathic epilepsy | | | | [address] [place] [address] | [place] [address] | without status | | | | [address] | [phone] | epilepticus (HCC) | | | | [phone] | | (Primary Dx) | +--------+---------+ + [...] + + + | Blood Pressure | 130/70 | 01/25/2017 10:24 AM | | | | | PDT | | + + + + + | Pulse | 64 | 01/25/2017 10:24 AM | | | | | PDT [...] Weight | 70.8 kg (156 lb) | 01/25/2017 10:24 AM | | | | | PDT | | + + + + + | Height | 186 cm (6' 1.23") | 01/25/2017 10:24 AM | | | | | PDT | | + + + + + | Body Mass Index | 20.45 | 01/25/2017 10:24 AM | | | | | PDT | | + + + + + documented in this encounter Progress Notes Tessa Dominguez MD - 01/25/2017 10:25 AM PDTFormatting of this note might be different fro m the original. Date of Service: 01/25/2017 Chief complaint: Primary generalized epilepsy with noncompliance History of Present Illness: Rene presents for follow up evaluation regarding epilepsy. 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 He had a repeat EEG in 2009 while he was taking ethosuximide which was normal. He mainly has seizures now secondary to noncompliance with his medication. He had been previously tried on Keppra and Depakote when these medica tions were started when he would report to the ER with breakthrough seizures secondary to no ncompliance with his Lamictal. It appears from his pediatric neurology notes as a child jose t as long as he was compliant on his Lamictal he states seizure-free. For some reason he is taking the extended release formulation. He takes 300 mg twice daily. He denies any side effects from the medication. His last seizure was 2 months ago and during the seizure was a convulsion and he broke his front tooth as well as sustained a cut on his right latissimus dorsi muscle. This is secondary to noncompliance with this medication. Also he is had seiz ures secondary to flashing lights when he was playing video games. He also smokes a lot of marijuana and he forgets to take his medications because he's high. He also drinks alcohol and sometimes he drinks a lot according to his grandfather who is accompanying him to clinic today. Current Medications: Current Outpatient Prescriptions Medication Sig Dispense Refill divalproex (DEPAKOTE ER) 250 mg 24 hr tablet Week 1 - Take 1 tablet by mouth daily, Wee k 2-Take 1 tab twice daily, Week 3 - Take 1 tab in the morning and 2 tabs nightly, Week 4 - Take 2 tabs twice daily and stay at this dose 120 tablet 11 lamoTRIgine (LAMICTAL) 100 MG TB24 Take one tab twice daily 60 each 11 LamoTRIgine 200 MG TB24 TAKE TWO TABLETS BY MOUTH TWICE DAILY 124 each 1 levETIRAcetam (KEPPRA) 500 mg tablet Take 1 pill twice daily 60 tablet 8 midazolam (VERSED) 5 mg/mL injection Dispense 10mg intranasally (5mg/1ml in each nostri l) with MAD device as needed for a seizure lasting longer than 5 minutes or two occurring ba ck to back without recovery in between. 2.1 mL 2 No current facility-administered medications for this visit. Allergies: No Known Allergies Vital Signs: BP 130/70 mmHg | Pulse 64 | Ht 1.86 m (6' 1.23") | Wt 70.761 kg (156 lb) | BMI 20.45 kg/m2 Physical Exam: General: well nourished patient [...] or dysdi dokinesia with rapidly alternating movements. Review of his diagnostic data: I personally reviewed his most recent ER records. He was se en at a hospital in [facility] in October 2015 when the ER physician question whether or not he had a pseudoseizure. I also reviewed his records from his pediatric neurologist as a child and it was clear that he suffers from primary generalized epilepsy. I also revie wed his most recent EEG. Assessment & Plan: Mr. Willett is a 21-year-old gentleman with a history of primary generalized epilepsy as confirmed by his pediatric neurologist who continues to have seizure activity secondary to n oncompliance with his anticonvulsant therapy as well as continued alcohol use. He was remin ded that his type of epilepsy can be provoked by alcohol use and he should avoid and all cos ts. He was also reminded that he needs to be compliant on his anticonvulsant medication for it to work for him. There is no need for him to be on extended release formulation if he's taking the medication twice a day. We will switch his prescription to Lamictal 300 mg twic e daily which will help him in terms of cost and availability at his pharmacy. He is to fol low seizure precautions which includes not driving, not operating heavy machinery, not worki ng with hazardous substances, not swimming or taking baths unattended, or climbing tall heig hts until he is free of any seizures that result in loss of awareness for at least 6 months. I'm not even sure whether or not he needs to be on this high of a dose of Lamictal. I thi nk his prescription has to just been increased due to him being noncompliant on his medicati ons. When he has been compliant on his anticonvulsant for one week he will go and get his L amictal level checked to make absolute sure its within therapeutic range. I have explained to him that if he remains seizure-free for a prolonged period of time we'll reassess whether or not he needs to be on such a high dose of medication. He'll follow-up in clinic in 6 mo nths. At that time if he is remaining seizure-free to reschedule for a year out. More than 40 minutes was spent with patient over half this time spent counseling regarding his epilepsy. (10:19-11:07 am). This report was transcribed using voice recognition software. Every effort was made to ensu re accuracy; however, inadvertent computerized process mold technician errors may be present. Updated Medications: Current Outpatient Prescriptions Medication Sig Dispense Refill lamoTRIgine (LAMICTAL) 150 MG tablet Take 2 tabs by mouth twice daily 120 tablet 11 midazolam (VERSED) 5 mg/mL injection Dispense 10mg intranasally (5mg/1ml in each nostri l) with MAD device as needed for a seizure lasting longer than 5 minutes or two occurring ba ck to back without recovery in between. 2.1 mL 2 No current facility-administered medications for this visit. documented in this en counter Plan of Treatment + +------+--------+ + + | Name | Type | Priori | Associated Diagnoses | Order Schedule | | | | ty | | | + +------+--------+ + + | Lamotrigine Level | Lab | Routin | Nonintractable | 1 Occurrences | | | | e | Generalized | starting 01/25/2017 | | | | | Idiopathic Epilepsy | until 01/25/2018 | | | | | Without Status | | | | | | Epilepticus (Hcc) | | + +------+--------+ + + documented as of this encounter Visit Diagnoses + + | Diagnosis | + + | Nonintractable generalized idiopathic epilepsy without status epilepticus (HCC) - | | Primary | + + documented in this encounter
--- OUTSIDE RECORDS SUMMARY | ~2020-04-29 | XMS | Encounter Summary ---
Demographics + + + | Address | [address] | | | [place] [address] | + + + | Home Phone | | + + + | Preferred Language | Unknown | + + + | Marital Status | Single | + + + | Religion Affiliation | CHR | + + + | Race | White | + + + | Ethnic Group | Not or | + + + Author + + + | Author | [facility] | + + + | Organization | [facility] | + + + | Address | Unknown | + + + | Phone | Unavailable | + + + Support + + + + + | Name | Relationship | Address | Phone | + + + + + | Mandy Willett | ECON | [address] | | | | | [place] | | | | | [address] | | + + + + + Care Team Providers + +------+ + | Care Major Case Detective Name | Role | Phone | + [...] | Event | [address] [place] | MD [address] | | | | | [facility] | [address] | | | | | Hospital Admitting | [place], [place] | | | | | Desk Located on the | [address] | | | | | 9th floor | [phone] | | | | | [place], [place] | | | | | | [address] | Akbar Montoya CRNA | | | | | | [address] | | | | | | [place] [facility] | | | | | [place] [address] | | | | | | [phone] | | | | | | | [...]
--- OUTSIDE RECORDS SUMMARY | ~2020-04-29 | XMS | Encounter Summary ---
Demographics + + + | Address | [address] | | | [place] [address] | + + + | Home Phone | | + + + | Preferred Language | Unknown | + + + | Marital Status | Single | + + + | Taoism Affiliation | 1013 | + + + | Race | Unknown | + + + | Ethnic Group | Unknown | + + + Author + + + | Author | [facility] | | | and Augustinana | + + + | Organization | [facility] | | | and [place]inana | + + + | Address | Unknown | + + + | Phone | Unavailable | + + + Support + + + + + | Name | Relationship | Address | Phone | + + + + + | Mandy Newton | ECON | [address] | | | | | [place] | | | | | [address] | | + + + + + Care Team Providers + +------+ + | Care Ignition Specialist Name | Role | Phone | + +------+ + | Missy Gaston | PCP | | + +------+ + Reason for Visit + +--------+ + | Reason | Onset | Comments | | | Date | | + +--------+ + | Medication Refill | 11/06/ | | | | 2016 | | + +--------+ + Encounter Details +--------+--------+ + + + | Date | Type | Department | Care Team | Description | +--------+--------+ + + + | 11/06/ | Refill | [place] | Tessa Dominguez, | Medication Refill | | 2015 | | [facility] | MD [address] | | | | | [address] | [address] [place], | | | | | [address] | [place] [address] | | | | | [address] | [phone] | | | | | [phone] | | | +--------+--------+ + + + [...] Telephone Encounter - Marley Chopra RN - 11/06/2015 1:08 PM PSTMidazolam RX ready for you to sign. 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
--- OUTSIDE RECORDS SUMMARY | ~2020-04-29 | XMS | Encounter Summary ---
Demographics + + + | Address | [address] | | | [place] [address] | + + + | Home Phone [...] Author + + + | Author | [facility] | + + + | Organization | [facility] | + + + | Address | Unknown | + + + | Phone | Unavailable | + + + Support + + + + + | Name | Relationship | Address | Phone | + + + + + | Mandy Willett | ECON | [address] | | | | | [place] | | | | | [address] | | + + + + + Care Team Providers + +------+ + | Care Customer Care Consultant Name | Role | Phone | + +------+ + | Missy Gaston | PCP | | + +------+ + Encounter Details +--------+ + + + + | Date | Type | Department | Care Team | Description | +--------+ + + + + | 02/26/ | Document-Sc | UNKNOWN DEPARTMENT | Jeffry Kiran | | | 2009 | anned | [address] | [phone] | | | | | [address] | | | | | | [place], [place] | | | | | | [address] | | | +--------+ + + + [...]
--- OUTSIDE RECORDS SUMMARY | ~2020-04-29 | XMS | Encounter Summary ---
Demographics + + + | Address | [address] | | | [place] [address] | + + + | Home Phone | | + + + | Preferred Language | Unknown | + + + | Marital Status | Single | + + + | Synagogue Affiliation | CHR | + + + | Race | White | + + + | Ethnic Group | Not or | + + + Author + + + | Author | [facility] | + + + | Organization | [facility] | + + + | Address | Unknown | + + + | Phone | Unavailable | + + + Support + + + + + | Name | Relationship | Address | Phone | + + + + + | Mandy Willett | ECON | [address] | | | | | [place] | | | | | [address] | | + + + + + Care Team Providers + +------+ + | Care Program Development Manager Name | Role | Phone | + +------+ + | Missy Gaston | PCP | | + +------+ + Reason for Referral Consultation (Routine) +--------+--------+ + + + + | Status | Reason | Specialty | Diagnoses / | Referred By | Referred To | | | | | Procedures | Contact | Contact | +--------+--------+ + + + + | Closed | | Nutrition | Diagnoses | Nilson, | Fn Adult | | | | | Closed | Alisha | [facility] [address] | | | | | fracture of | MD BAILEY [address] | | | | | left side of | [address] | [address] | | | | | mandibular | [address] | [address], | | | | | body, | Rd | 1st Floor | | | | | initial | [facility] [place] | [place], [place] | | | | | encounter | [address] | [address] | | | | | (HCC) | Phone: | Phone: | | | | | Closed | [phone] | [phone] | | | | | subcondylar | Fax: | Fax: | | | | | fracture of | [phone] | [phone] | | | | | right side | | | | | | | of mandible, | | | | | | | initial | | | | | | | encounter | | | | | | | (HCC) | | | | | | | Procedures | | | | | | | CONSULT TO | | | | | | | ADULT | | | | | | | MEDICAL | | | | | | | NUTRITIONAL | | | | | | | THERAPY | | | +--------+--------+ + + + + Reason for Visit + + + [...] | +--------+ + + + + | 04/19/ | Emergency | [facility] [address] | [place], | | | 2017 - | | [place] | MD Duncan [address] | | | | | [id number] [facility] | [address] | | | 04/22/ | | [facility], | [place], [place] | | | 2017 | | [place] [address] | [address] | | | | | [phone] | [phone] | | | | | | | | | | | | Luigi Abarca, | | | | | | ,DMD [address] [facility] | | | | | | [address] | | | | | | [place], [place] | | | | | | [address] | | | | | | [phone] | | | | | | | [...] DMD, MD - 04/21/2017 7:54 AM PDT [facility] Discharge Summary Discharging Provider: Alisha Devine MD, DMD Discharging Attending Physician: Luigi Abarca MD, DMD Hospital Stay: 3 day(s) PCP: JUAN García [...] bar placement Hospital Course: Patient presented to [facility] ED on 04/19/17. On 04/11 he [...] bearing down Other Discharge Orders and Instructions senior designer/art director After Surgery Instructions DIET RESTRICTIONS You should eat pureed foods only (anything that is the consistency of a milkshake) [facility] [place] your teeth as you would normally. It [...] evening or on the weekend. Call the case operator clay pigeon loader at for any of the f ollowing [...] Phone Center 05/12/2017 9:00 AM Luigi Abarca [facility] at [facility] [phone] [facility] [place] Schedule the following appointment(s) when you get home Follow up with LUIGI ABARCA MD,DMD In 2 weeks. Specialty: Oral & Maxillofacial Surgery Why: Fracture check Contact information [address] [place] [address] Discharge Physical Exam: Last 24 [...] DMD, MD - 04/22/2017 7:18 AM PDT senior designer/art director Service Daily Inpatient Progress Note Attending Physician: [...] 19.11 kg/(m^2) Vitals trends reviewed independently in [facility] I/Os reviewed independently in [facility] LABS Reviewed independently in [facility] BMP pending IMAGING Radiographic Imaging Type(s): CT [...] PLAN D/c home today Alisha Devine MD, BAILEY OMFS PGY-3 This patient's working diagnosis and treatment considerations were discussed and formulated in coordination with the resident team and attending staff. Alisha Diop DMD, MD - 04/21/2017 7:44 AM PDT . senior designer/art director Service Daily Inpatient Progress Note Attending Physician: [...] 19.11 kg/(m^2) Vitals trends reviewed independently in [facility] I/Os reviewed independently in [facility] LABS Reviewed independently in [facility] BMP pending IMAGING Radiographic Imaging Type(s): CT [...] on RA ASSESSMENT 21 y.o. Rene Serna Brennon, hospital day 2 with right medial displaced subcondylar fractur e and left body mandibular fracture who will require closed reduction of the fractures in [place] today. Currently his occlusion is stable and reproducible. PLAN -NPO until surgery -Continue maintenance fluids - BMP pending. Will replete electrolytes as needed -Closed reduction of mandibular fractures today in [place] Alisha Devine DMD senior designer/art director This patient's working diagnosis and treatment considerations were discussed and formulated in coordination with the resident team and attending staff. Alisha Diop DMD, MD - 04/20/2017 8:04 AM PDT . senior designer/art director Service Daily Inpatient Progress Note Attending Physician: [...] 19.11 kg/(m^2) Vitals trends reviewed independently in [employer] I/Os reviewed independently in [employer] LABS Reviewed independently in [employer] K 3.2 IMAGING Radiographic Imaging Type(s): CT [...] breathing on RA ASSESSMENT 21 y.o. Rene R Brennon, hospital day 1 with right medial displaced subcondylar fractur e and left body mandibular fracture who will require closed reduction of the fractures in e [place] today. Currently his occlusion is stable and reproducible. PLAN -NPO until surgery -Continue maintenance fluids -Repleted K will trend tomorrow with BMP -Closed reduction of mandibular fractures today in [place] Alisha Devine DMD senior designer/art director This patient's working diagnosis and treatment considerations were discussed and formulated in coordination with the resident team and attending staff. documented in is encounter Plan of Treatment Not on [...] seizure on 04/11/17. He subsequently presented to [facility] for further | | | management [...] | | MD BAILEY PGY - 4 [id number] I was present for the entire procedure | | | as described in the note for this encounter. Luigi Abarca, | | | MD BAILEY, FACS | | + + + BASIC [...] | | | LABORATORY | | | [facility] | | | SERVICES, | | | [...] | Adult glucose reference range change effective 7-17. GFR is | [facility] | | estimated [...] | + + + + + | [facility] | [address] | [place] [address] | | | WIL, DIGNA | [address] | | | + [...] [facility] | [address] | [place] [address] | | | SERVICES, CORE | [address]ARK [...] | | | LABORATORY | | | [facility] | | | SERVICES, | | | [...] | Adult glucose reference range change effective 712-17. GFR is | [facility] | | estimated [...] | + + + + + | [facility] | [address] | [place] [address] | | | SERVICES, [facility] | [address] | | | + [...] | + + + + + | [facility] | [address] | [place] [address] | | | SERVICES, | [address] [...] [facility] | [address] | [place] [address] | | | SERVICES, | [address] [...] | included in the neutrophil count. | SERVICES, CORE | + + + + + + + + | Performing | Address | City/State/Zipcode | Phone Number | | Organization | | | | + + + + + | [facility] | [address] | [place] [address] | | | SERVICES, CORE | PARK [...] | + + + + + | [facility] | [address] | [place] [address] | | | SERVICES, CORE | [address] [...] | | | LABORATORY | | | [facility] | | | SERVICES, | | | [...] | Adult glucose reference range change effective 04-07-17. GFR is | [facility] | | estimated [...] | + + + + + | [facility] | [address] | [place] [address] | | | SERVICES, CORE | [address] [...] | + + + + + | [facility] [facility] | [address] | [place] [address] | | | SERVICES, | [address] | | | | [facility] | | | | + + + + + documented in this encounter Visit Diagnoses + + | Diagnosis | + + | Closed fracture of left side of mandibular body, initial encounter (HCC) - Primary | + + | Closed subcondylar fracture of right side of mandible, initial encounter (HCC) | + + | Subcondylar fracture of right side of mandible (HCC) | + + | Fracture of left side of body of mandible (HCC) | + + documented in this encounter [...] | | | | | NEEDED, Starting 04/21/17 at | | | | | | | 1814, Until Kanika 04/22/17 at 1645, | | | | | [...] +-------+---+---+ +---+---+ | | | +---+---+ + + [...] | | | | ONCE, 1 dose, Wed04/19/17 at | | PM PDT | | [...] Wed04/21/17 at | | | 1815, Until Kanika 04/22/17 at 1645, | | | nausea/vomiting, first [...]
--- OUTSIDE RECORDS SUMMARY | ~2020-04-29 | XMS | Encounter Summary ---
Demographics + + + | Address | [address] | | | [place] [address] | + + + | Home Phone | | + + + | Preferred Language | Unknown | + + + | Marital Status | Single | + + + | Tenriism Affiliation | CHR | + + + | Race | White | + + + | Ethnic Group | Not or | + + + Author + + + | Author | [facility] | + + + | Organization | [facility] | + + + | Address | Unknown | + + + | Phone | Unavailable | + + + Support + + + + + | Name | Relationship | Address | Phone | + + + + + | Mandy Willett | ECON | [address] | | | | | [place] | | | | | [address] | | + + + + + Care Team Providers + +------+ + | Care Asbestos Brake Lining Finisher Helper Name | Role | Phone | [...] | | | Closed | Alisha | [facility] [address] | | | | | fracture of | MD [address] | [address] | | | | | left side of | [address] | [address] | | | | | mandibular | [address] | [address], | | | | | body, | Rd | 1st Floor | | | | | initial | [facility], [place] | [place], [place] | | | | | encounter | [address] | [address] | | | | | (HCC) | Phone: | Phone: | | | | | Closed | [phone] | [phone] | | | | | subcondylar | Fax: | Fax: | | | | | fracture of | [phone] | [phone] | | | | | right side [...] | | | 2017 - | | Ophiem | MD Duncan [address] | | | | | [id number] [facility] | [address] | | | 04/22/ | | [facility], | [place], [place] | | | 2017 | | [place] [address] | [address] | | | | | [phone] | [phone] | | | | | | | | | | | | Luigi Abarca, | | | | | | ,DMD [address] [facility] | | | | | | [address] | | | | | | [place], [place] | | | | | | [address] | | | | | | [phone] | | | | | | | [...] DMD, MD - 04/21/2017 7:54 AM PDT [facility] Discharge Summary Discharging Provider: Alisha Devine [...] bar placement Hospital Course: Patient presented to [facility] ED on 04/19/17. 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 It [...] evening or on the weekend. Call the motion study technician interventional sale consultant at for any of the f ollowing [...] Phone Center 05/12/2017 9:00 AM Luigi Abarca [facility] at [facility] [phone] [facility] Schedule the following appointment(s) when you get home Follow up with LUIGI ABARCA MD,DMD In 2 weeks. Specialty: Oral & Maxillofacial Surgery Why: Fracture check Contact information [address] [place] [address] Discharge Physical Exam: Last [...] DMD, MD - 04/22/2017 7:18 AM PDT real estate office manager Service Daily Inpatient Progress Note Attending Physician: [...] 19.11 kg/(m^2) Vitals trends reviewed independently in [facility] I/Os reviewed independently in [facility] LABS Reviewed independently in [facility] BMP pending IMAGING Radiographic Imaging Type(s): [...] MD - 04/21/2017 7:44 AM PDT . real estate office manager Service Daily Inpatient Progress Note Attending Physician: [...] 19.11 kg/(m^2) Vitals trends reviewed independently in [facility] I/Os reviewed independently in [facility] LABS Reviewed independently in [facility] BMP pending IMAGING Radiographic Imaging Type(s): [...] fractures today in [place] Alisha Devine DMD real estate office manager This patient's working diagnosis and treatment considerations were discussed and formulated in coordination with the resident team and attending staff. Alisha Diop DMD, MD - 04/20/2017 8:04 AM PDT . real estate office manager Service Daily Inpatient Progress Note Attending Physician: [...] 19.11 kg/(m^2) Vitals trends reviewed independently in [facility] I/Os reviewed independently in [facility] [employer] [facility] LABS Reviewed independently in [employer] K 3.2 IMAGING Radiographic Imaging Type(s): CT [...] fractures today in [place] Alisha Devine DMD real estate office manager This patient's working diagnosis and treatment considerations [...] seizure on 04/11/17. He subsequently presented to [facility] for further | | | management [...] | | MD BAILEY PGY - [id number] I was present for the entire procedure [...] | | | LABORATORY | | | ECUADOREAN | | | SERVICES, | | | [...] | + + + + + | [facility] | [address] | [place] [address] | | | WIL, DIGNA | [address] [...] [facility] | [address] | [place] [address] | | | SERVICES, CORE | [address] [...] | | | LABORATORY | | | ECUADOREAN | | | SERVICES, | | | [...] | + + + + + | [facility] | [address] | [place] [address] | | | SERVICES, [facility] | [address] | | | + [...] | + + + + + | [facility] | [address] | [place] [address] | | | SERVICES, | [address] [...] [facility] | [address] | [place] [address] | | | SERVICES, | [address] [...] [facility] | [address] | [place] [address] | | | SERVICES, CORE | [address] [...] | + + + + + | [facility] | [address] [facility] | [place] [address] | | | SERVICES, CORE | [address] [...] | | | LABORATORY | | | ECUADOREAN | | | SERVICES, | | | [...] | + + + + + | [facility] | [address] | [place] [address] | | | SERVICES, CORE | [address] [...] | + + + + + | [facility] | [address] | [place] [address] | | | SERVICES, | [address] [...]
--- OUTSIDE RECORDS SUMMARY | ~2020-04-29 | XMS | Encounter Summary ---
Demographics + + + | Address | [address] | | | [place] [address] | + + + | Home Phone | | + + + | Preferred Language | Unknown | + + + | Marital Status | Single | + + + | Jehovah'S Witness Affiliation | CHR | + + + | Race | White | + + + | Ethnic Group | Not or | + + + Author + + + | Author | [facility] | + + + | Organization | [facility] | + + + | Address | Unknown | + + + | Phone | Unavailable | + + + Support + + + + + | Name | Relationship | Address | Phone | + + + + + | Mandy Willett | ECON | [address] | | | | | [place] | | | | | [address] | | + + + + + Care Team Providers + +------+ + | Care Wheel Aligner Name | Role | Phone | + [...] [id number] | | | | | | [place], [place] | | | | | | [address] | | | | | | [phone] | | | +--------+ + + + [...] | + + + + + | [facility] | [address] | [place] [address] | | | PATHOLOGY | [address] [...] | + + + + + | [facility] | [address] | [place] [address] | | | PATHOLOGY | [address] [...] | + + + + + | [facility] | [address] | [place] [address] | | | PATHOLOGY | [address] [...] | + + + + + | [facility] | [address] | [place] [address] | | | PATHOLOGY | [address] [...] | + + + + + | [facility] | [address] | [place] [address] | | | PATHOLOGY | [address] [...] DEPARTMENT OF | [address] | [place] [address] | | | PATHOLOGY | [address] [...] | + + + + + | [facility] | [address] | [place] [address] | | | PATHOLOGY | [address] [...] | + + + + + | [facility] | [address] | [place] [address] | | | PATHOLOGY | [address] [...] + + + + + | [facility] | [address] | [place] [address] | | | PATHOLOGY | [address] [...] | + + + + + | [facility] | [address] | [place] [address] | | | PATHOLOGY | [address] [...] | + + + + + | [facility] | [address] | [place] [address] | | | PATHOLOGY | [address] [...] | + + + + + | [facility] | [address] | [place] [address] | | | PATHOLOGY | [address] [...] | + + + + + | [facility] | [address] | [place] [address] | | | PATHOLOGY | [address] [...] | + + + + + | [facility] | [address] | [place] [address] | | | PATHOLOGY | [address] [...] | + + + + + | [facility] | [address] | [place] [address] | | | PATHOLOGY | [address] [...] | + + + + + | [facility] | [address] | [place] [address] | | | PATHOLOGY | [address] [...] | + + + + + | [facility] | [address] | [place] [address] | | | PATHOLOGY | [address] [...] | + + + + + | [facility] | [address] | [place] [address] | | | PATHOLOGY | [address] [...] | + + + + + | [facility] | [address] | [place] [address] | | | PATHOLOGY | [address] [...] | + + + + + | [facility] | [address] | [place] [address] | | | PATHOLOGY | [address] [...] | + + + + + | [facility] | [address] | [place] [address] | | | PATHOLOGY | [address] [...] | + + + + + | [facility] | [address] | [place], [place] [address] | | | PATHOLOGY | [address] [...] | + + + + + | [facility] | [address] | [place] [address] | | | PATHOLOGY | [address] [...] | + + + + + | [facility] | [address] | [place] [address] | | | PATHOLOGY | [address] [...] | + + + + + | [facility] | [address] | [place] [address] | | | PATHOLOGY | [address] [...] | + + + + + | [facility] | [address] | [place] [address] | | | PATHOLOGY | [address] [...] | + + + + + | [facility] | [address] | [place] [address] | | | PATHOLOGY | [address] [...] | + + + + + | [facility] | [address] | [place] [address] | | | PATHOLOGY | [address] [...] | + + + + + | [facility] | [address] | [place] [address] | | | PATHOLOGY | [address] [...] | + + + + + | [facility] | [address] | [place] [address] | | | PATHOLOGY | [address] [...] | + + + + + | [facility] | [address] | [place] [address] | | | PATHOLOGY | [address] [...] | + + + + + | [facility] | [address] | [place] [address] | | | PATHOLOGY | [address] [...] | + + + + + | [facility] | [address] | [place] [address] | | | PATHOLOGY | [address] [...] | + + + + + | [facility] | [address] | [place] [address] | | | PATHOLOGY | [address] [...] | + + + + + | [facility] | [address] | [place] [address] | | | PATHOLOGY | [address] [...] | + + + + + | [facility] | [address] | [place] [address] | | | PATHOLOGY | [address] [...] | + + + + + | [facility] | [address] | [place] [address] | | | PATHOLOGY | [address] [...] | + + + + + | [facility] | [address] | [place] [address] | | | PATHOLOGY | [address] [...] | + + + + + | [facility] | [address] | [place], [place] [address] | | | PATHOLOGY | [address] [...] | + + + + + | [facility] | [address] | [place] [address] | | | PATHOLOGY | [address] [...] | + + + + + | [facility] | [address] | [place] [address] | | | PATHOLOGY | [address] [...] | + + + + + | [facility] | [address] | [place] [address] | | | PATHOLOGY | [address] [...] | + + + + + | [facility] | [address] | [place] [address] | | | PATHOLOGY | [address] [...] | + + + + + | [facility] | [address] | [place] [address] | | | PATHOLOGY | [address] [...] | + + + + + | [facility] | [address] | [place] [address] | | | PATHOLOGY | [address] [...] | + + + + + | [facility] | [address] | [place] [address] | | | PATHOLOGY | [address] [...] | + + + + + | [facility] | [address] | [place] [address] | | | PATHOLOGY | [address] [...] | + + + + + | [facility] | [address] | [place] [address] | | | PATHOLOGY | [address] [...] | + + + + + | [facility] | [address] | [place] [address] | | | PATHOLOGY | [address] [...] | + + + + + | [facility] | [address] | [place] [address] | | | PATHOLOGY | [address] [...] | + + + + + | [facility] | [address] | [place] [address] | | | PATHOLOGY | [address] [...] | + + + + + | [facility] | [address] | [place] [address] | | | PATHOLOGY | [address] [...] | + + + + + | [facility] | [address] | [place] [address] | | | PATHOLOGY | [address] [...] | + + + + + | [facility] | [address] | [place] [address] | | | PATHOLOGY | [address] [...] | + + + + + | [facility] | [address] | [place] [address] | | | PATHOLOGY | [address] [...] | + + + + + | [facility] | [address] | [place] [address] | | | PATHOLOGY | [address] [...] | + + + + + | [facility] | [address] | [place] [address] | | | PATHOLOGY | [address] | | | + + + + + documented in this encounter Visit Diagnoses Not on filedocumented in this encounter"
--- OUTSIDE RECORDS SUMMARY | ~2020-04-29 | XMS | Encounter Summary ---
Demographics + + + | Address | [address] | | | [place] [address] | + + + | Home Phone [...] Author + + + | Author | [facility] | + + + | Organization | [facility] | + + + | Address | Unknown | + + + | Phone | Unavailable | + + + Support + + + + + | Name | Relationship | Address | Phone | + + + + + | Mandy Willett | ECON | [address] | | | | | [place] | | | | | [address] | | + + + + + Care Team Providers + +------+ + | Care Technician Anatomic Pathology Name | Role | Phone | + +------+ + | Missy Gaston | PCP | | + +------+ + Reason for Visit + + + | Reason | Comments | + + + | Scheduling | | + + + Encounter Details +--------+ + + + + | Date | Type | Department | Care Team | Description | +--------+ + + + + | 05/06/ | Telephone | [facility] at | Luigi Abarca, | Scheduling | | 2017 | | [facility] [address] | ,DMD [address] | | | | | [address] | [address] | | | | | [facility] | [place], [place] | | | | | [place], 7th floor | [address] | | | | | [place], [place] | [phone] | | | | | [address] | | | | | | [phone] | | | +--------+ + + + [...]
--- OUTSIDE RECORDS SUMMARY | ~2020-04-29 | XMS | Encounter Summary ---
Demographics + + + | Address | [address] | | | [place] [address] | + + + | Home Phone | | + + + | Preferred Language | Unknown | + + + | Marital Status | Single | + + + | Latter Day Affiliation | CHR | + + + [...] [place] | | | | | [address] | | + + + + + Care Team Providers + +------+ + | Care Bdr Name | Role | Phone | + [...] Clinic | | | | | | [facility], [address] | | | | | | [place], [place] | | | | | | [address] | | | | | | [phone] | | | +--------+ + + + [...] as of this encounter Progress Notes Interface, Infection Prevention Coordinator In - 12/22/2006 1:01 AM PDT CLINIC DATE: 02/24/96 CLINIC SITE: MIKE López is a [id number] child who is postoperative repair of total [...]
--- OUTSIDE RECORDS SUMMARY | ~2020-04-29 | XMS | Encounter Summary ---
Demographics + + + | Address | [address] | | | [place] [address] | + + + | Home Phone [...] [place] | | | | | [address] | | + + + + + Care Team Providers + +------+ + | Care Fish Farm Manager Name | Role | Phone | [...] as of this encounter Progress Notes Interface, Pressurizer In - 09/11/2006 3:10 AM PSTCLINIC DATE: 04/17/1999 [facility] SUBJECTIVE: Rene is a [...] M.D. Tutu cc: LISA REDDY MD [address] [id number] signed by Interface, Pressurizer In at 09/11/2006 3:10 AM PSTdocumented in this encounter Plan of Treatment Not on filedocumented as of this encounter Visit Diagnoses Not on filedocumented in this encounter"
--- OUTSIDE RECORDS SUMMARY | ~2020-04-29 | XMS | Encounter Summary ---
Demographics + + + | Address | [address] | | | [place] [address] | + + + | Home Phone | | + + + | Preferred Language | Unknown | + + + | Marital Status | Single | + + + | Restorationist Affiliation | CHR | + + + | Race | White | + + + | Ethnic Group | Not or | + + + Author + + + | Author | [facility] | + + + | Organization | [facility] | + + + | Address | Unknown | + + + | Phone | Unavailable | + + + Support + + + + + | Name | Relationship | Address | Phone | + + + + + | Mandy Willett | ECON | [address] | | | | | [place] | | | | | [address] | | + + + + + Care Team Providers + +------+ + | Care Package Designer Name | Role | Phone | + [...] [address] | | | | | [facility] | [place], [place] | | | | | [place], 7th floor | [address] | | | | | [place], [place] | [phone] | | | | | [address] | | | | | | [phone] | | | +--------+ + + + [...]
--- OUTSIDE RECORDS SUMMARY | ~2020-04-29 | XMS | Encounter Summary ---
Demographics + + + | Address | [address] | | | [place] [address] | + + + | Home Phone [...] Author | [facility] | | | and Augustinana | + + + | Organization | [facility] | | | and [...] [place] | | | | | [address] | | + + + + + Care Team Providers + +------+ + | Care Probate Clerk Name | Role | Phone | [...] Description | +--------+--------+ + + + | 09/03/ | Refill | [facility] | Tessa Dominguez, | Medication Refill | | 2013 | | [facility] | MD [address] | | | | | [address] | [address] [place], | | | | | [address] [place] | [place] [address] | | | | | [address] | [phone] | | | | | [phone] | | | +--------+--------+ + + + [...] this encounter Miscellaneous Notes Telephone Encounter - Ginger Lagos CMA - 09/04/2014 8:12 AM PSTHe has an apt with pavan melchor in September so one time fill only 14 8:13 AM PSTdocumented in this encounter Plan of Treatment Not on filedocumented as of this encounter Visit Diagnoses + + | Diagnosis | + + | 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
--- OUTSIDE RECORDS SUMMARY | ~2020-04-29 | XMS | Encounter Summary ---
Demographics + + + | Address | [address] | | | [place] [address] | + + + | Home Phone | | + + + | Preferred Language | Unknown | + + + | Marital Status | Single | + + + | Sikhism Affiliation | 1013 | + + + | Race | Unknown | + + + | Ethnic Group | Unknown | + + + Author + + + | Author | [facility] | | | and Augustinana | + + + | Organization | [facility] | | | and Augustinana [...] [place] | | | | | [address] | | + + + + + Care Team Providers + +------+ + | Care Director Of Customer Service Name | Role | Phone | + +------+ + | Missy Gaston | PCP | | + +------+ + Reason for Visit +--------+--------+ + | Reason | Onset | Comments | | | Date | | +--------+--------+ + | Other | 12/08/ | | | | 2016 | | +--------+--------+ + | Other | | | +--------+--------+ + Encounter Details +--------+ + + + + | Date | Type | Department | Care Team | Description | +--------+ + + + + | 12/08/ | Telephone | [place] | Tessa Dominguez, | Other; | | 2015 | | [facility] | MD [address] | | | | | [address] | [address] [place], | | | | | [address] [place] | [place] [address] | | | | | [address] | [phone] | | | | | [phone] | | | +--------+ + + + [...] Telephone Encounter - Marley Chopra RN - 12/10/2015 11:07 AM PDTLetter faxed and I left Rene a message informing him.Electronically signed by Marley Chopra RN at 11:09 AM PDTTelephone Encounter - Marley Chopra RN - 12/10/2015 10:01 AM PDT I was able to speak with Rene this morning and explained the EMU to him and he is ok with that. He is asking for a letter for work again. I asked if he has missed any doses or not taking his medications and states that he doesn't miss any of his medications. 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 I started a letter if this is ok.Electronically signed by Marley Chopra RN at 2015 10:03 AM PDTTelephone Encounter - Marley Chopra RN - 12/09/2015 2:42 PM ERICA reyes eft a message for Rene to call back.Electronically signed by Marley Chopra RN at 0 12/09/2015 2:43 PM PDTTelephone Encounter - Marley Chopra RN - 12/09/2015 2:42 PM P DT----- Message from Tessa Dominguez MD sent at 12/09/2015 14:37 PDT ----- Garett Roach, I just received the patient's records from [facility] and apparently the ER doc tor thought he was having pseudoseizures. We need to bring him into the EMU to confirm what he is having before making any further adjustments to his meds. I will place that order. Can you please let him know. elephone Encounter - Tessa Dominguez MD - 12/09/2015 9:24 AM ERICA'm not signin g anything if he's not taking his seizure medication. elephone Encounter - Av Galvez CMA - 12/09/2015 9: 13 AM Nic called and said that he would like a letter stating that he can go back to work. I tried to call him back to get some info regarding his job but the only number we have for him is his mothers and no one answered. This Pts mom and grandpa are always calling stating that he is not taking his medication. documented in this encounter Plan of Treatment Not on filedocumented as of this encounter Visit Diagnoses Not on filedocumented in this encounter"
--- OUTSIDE RECORDS SUMMARY | ~2020-04-29 | XMS | Encounter Summary ---
Demographics + + + | Address | [address] | | | [place] [address] | + + + | Home Phone | | + + + | Preferred Language | Unknown | + + + | Marital Status | Single | + + + | Mandaeism Affiliation | 1013 | + + + | Race | Unknown | + + + | Ethnic Group | Unknown | + + + Author + + + | Author | [facility] | | | and [place] | + + + | Organization | [facility] | | | and [...] [place] | | | | | [address] | | + + + + + Care Team Providers + +------+ + | Care Ranch Hand Supervisor Name | Role | Phone | + +------+ + | Missy Gaston | PCP | | + +------+ + Reason for Visit +--------+--------+ + | Reason | Onset | Comments | | | Date | | +--------+--------+ + | Other | 08/30/ | | | | 2013 | | +--------+--------+ + Encounter Details +--------+ + + + + | Date | Type | Department | Care Team | Description | +--------+ + + + + | 08/30/ | Telephone | [place] | Tessa Dominguez, | Other | | 2013 | | [facility] | MD [address] | | | | | [address] | [place] [address] [place], | | | | | [address] | [place] [address] | | | | | [address] | [phone] | | | | | [phone] | | | +--------+ + + + [...] this encounter Miscellaneous Notes Addendum Note - Tessa Dominguez MD - 09/07/2014 9:54 AM PST Addended by: TESSA DOMINGUEZ on: 09/07/2014 09:54 Modules accepted: Orders ddendum Note - Desi Arevalo CMA - 09/07/2014 8:57 AM PST Addended by: DESI LAGOS on: 09/07/2014 08:57 Modules accepted: Orders elephone Encoun Desi Kapadia CMA - 09/07/2014 8:49 AM PSTMom called back, they best number to r each her on is her work number not the home number. He was ill at the time of this event and had taken over the counter cold medication. I reminded her that illness and most over the c ounter cold meds can lover the sz threshold. He will get a trough level checked of his meds. Orders will need to be faxed to [facility] in [facility] , their ph one number is if we need to call for results. I did direct mom that he needs to go in first thing in the am before taking meds to get the lab draw. I teed yo orders abov e. elephone Tessa Carrillo MD - 09/03/2014 10:52 AM Janelle Roach elephone Encounter - Marley Chopra RN - 09/03/2014 10:12 AM PSTI left another message today. I also mail ed them a letter stating we were trying to reach them. elephone Encounter - Marley Chopra RN - 2013 8:46 AM PSTI left a message for mom to call back. elephone Encounter - Tessa Dominguez MD - 08/31/2014 7:20 AM Mikki Roach, Can you find out if there was any triggers (alcohol, sleep depriva tion). Most of the time his seizures are triggered by sleep deprivation. Have him check hi s lamictal levels to see if there therapeutic please. He needs to follow seizure precaution s. elephone Encounter - Marley Chopra RN - 08/30/2014 3:19 PM PSTMom called to report that Rene may gaston ve had a partial seizure at work today which would be unusual for him. She isn't sure on the exact details but said that he was "somewhat aware" but his eyes rolled back and it lasted 10-15 minutes. She didn't know if there was something they needed to do or any advice. She said that they are scheduled to follow up with you in September. 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
--- OUTSIDE RECORDS SUMMARY | ~2020-04-29 | XMS | Encounter Summary ---
Demographics + + + | Address | [address] | | | [place] [address] | + + + | Home Phone | | + + + | Preferred Language | Unknown | + + + | Marital Status | Single | + + + | Jewish Affiliation | CHR | + + + [...] [id number] [place] | | | | | [address] | | + + + + + Care Team Providers + +------+ + | Care Datastage Consultant Name | Role | Phone | [...] Obrien | | | | | | [place] [address] | | | | | | [phone] | | | | | | | [...] | | + +---------+ + + | [facility] | | | | [...] | | + +---------+ + + | [facility] | | | | [facility]IOLOG[facility] | | | | + +---------+ + + documented in this encounter Visit Diagnoses Not on filedocumented in this encounter"
--- OUTSIDE RECORDS SUMMARY | ~2020-04-29 | XMS | Encounter Summary ---
Demographics + + + | Address | [address] | | | [place] [address] | + + + | Home Phone [...] [place] | | | | | [address] | | + + + + + Care Team Providers + +------+ + | Care Carpenter Inspector Name | Role | Phone | [...] Garcia | | | | | | [facility] floor | | | | | | [place], [place] | | | | | | [address] | | | | | | [phone] | | | +--------+ + + + [...] as of this encounter Discharge Summaries Interface, Lab Aide In - 01/06/2007 6:13 AM PDT [address] [address] [facility] MEDICAL SUMMARY OF HOSPITALIZATION Med Rec No.: [id number] Admission Date: 03/10/95 Name: Rene Willett Discharge Date: 03/17/95 STAFF PHYSICIAN: Alex Valenzuela M.D. 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 PRINCIPAL PROCEDURE: Correction of total anomalous pulmonary venous connection. REASON FOR ADMISSION: The patient is a [id number]-vnx male born at age 37 weeks' by [...] LISA REDDY MD [address] [facility] [address] documented in this encounter Plan of Treatment Not on filedocumented as of this encounter Visit Diagnoses Not on filedocumented in this encounter"
--- OUTSIDE RECORDS SUMMARY | ~2020-04-29 | XMS | Encounter Summary ---
Demographics + + + | Address | [address] | | | [place] [address] | + + + | Home Phone | | + + + | Preferred Language | Unknown | + + + | Marital Status | Single | + + + | Yazidism Affiliation | CHR | + + + | Race | White | + + + | Ethnic Group | Not or | + + + Author + + + | Author | [facility] | + + + | Organization | [facility] | + + + | Address | Unknown | + + + | Phone | Unavailable | + + + Support + + + + + | Name | Relationship | Address | Phone | + + + + + | Mandy Willett | ECON | [address] | | | | | [place] | | | | | [address] | | + + + + + Care Team Providers + +------+ + | Care Security Infrastructure Engineer Name | Role | Phone | + +------+ + PCP | Unavailable | + +------+ + Encounter Details +--------+ + + + + | Date | Type | Department | Care Team | Description | +--------+ + + + + | 03/11/ | Procedure - | [facility] | Record, Operation | Operative Report | | 1994 | | [place] [id number] | | | | | Transcribed | [facility] | | | | | | for Health and | | | | | | Healing, [address] | | | | | | [place], [place] | | | | | | [address] | | | | | | [phone] | | | +--------+ + + + [...] + + | 03/11/1995 12:00 AM PDT [place] | | [facility] | | [address] [place] [address] | | [facility] | | | | OPERATION RECORD | | | | Med Rec No.: [id number] Date: 03/11/95 | | | | Name: Rene Willett | | | | | | ATTENDING SURGEON: Alex Valenzuela M.D. | | Professor, Surgery | | Chief, Division of Cardiopulmonary Surgery | | | | VOCATIONAL TECHNICAL EDUCATION TEACHER(S): Nayely Vizcarra M.D. | | Instructor, Cardiopulmonary [...] | | placed, and then the sternal fish net stringer was applied. Hemostasis was | | confirmed. [...] a | | pursestring suture with #4-0 [place], and the cannula was inserted and | | secured in place. A single venous cannula was then used to cannulate the | | right atrial appendage which was also placed through a pursestring of #4-0 | | [place]-Sammy placed at the right atrial appendage. | [...]
--- OUTSIDE RECORDS SUMMARY | ~2020-04-29 | XMS | Encounter Summary ---
Demographics + + + | Address | [address] | | | [place] [address] | + + + | Home Phone | | + + + | Preferred Language | Unknown | + + + | Marital Status | Single | + + + | Spiritism Affiliation | CHR | + + + | Race | White | + + + | Ethnic Group | Not or | + + + Author + + + | Author | [facility] | + + + | Organization | [facility] | + + + | Address | Unknown | + + + | Phone | Unavailable | + + + Support + + + + + | Name | Relationship | Address | Phone | + + + + + | Mandy Willett | ECON | [address] | | | | | [place] | | | | | [address] | | + + + + + Care Team Providers + +------+ + | Care Supervisor Multifocal Lens Name | Role | Phone | + [...] Maxillofacial | | Epic Dept | [address] | | | | Surgery | | | [address] | | | | | | | [address] | | | | | | | [address] | | | | | | | Research | | | | | | | [place], [address]th | | | | | | | floor | | | | | | | [place], [place] | | | | | | | [address] | | | | | | | Phone: | | | | | | | [phone] | | | | | | | Fax: | | | | | | | [phone] | +--------+--------+ + + + + Encounter [...] [address] | | | | | [address] | [address] | | | | | [place] [facility] | [place], [place] | | | | | [place], [facility] floor | [address] | | | | | [place], [place] | [phone] | | | | | [address] | | | | | | [phone] | | | +--------+ + + + [...]
--- OUTSIDE RECORDS SUMMARY | ~2020-04-29 | XMS | Encounter Summary ---
Demographics + + + | Address | [address] | | | [place] [address] | + + + | Home Phone | | + + + | Preferred Language | Unknown | + + + | Marital Status | Single | + + + | Latter-Day Affiliation | CHR | + + + | Race | White | + + + | Ethnic Group | Not or | + + + Author + + + | Author | [facility] | + + + | Organization | [facility] | + + + | Address | Unknown | + + + | Phone | Unavailable | + + + Support + + + + + | Name | Relationship | Address | Phone | + + + + + | Mandy Willett | ECON | [address] | | | | | [place] | | | | | [address] | | + + + + + Care Team Providers + +------+ + | Care Professor Of Food Biochemistry Name | Role | Phone | + [...] [facility] | | | | | | [place] | Research | | | | | | Research | Center, 7th | | | | | | Center, 7th | floor | | | | | | floor | [employer] [place], [place] | | | | | | [facility] [place] | [address] | | | | | | [address] | Phone: | | | | | | Phone: | [phone] | | | | | | [phone] | Fax: | | | | | | Fax: | [phone] | | | | | | [phone] | | +--------+--------+ + + + + [...] | | | [address] | [address] | | | | | [place] [facility] | [place], [place] | | | | | [place], 7th floor | [address] | | | | | [employer] [place], [place] | [phone] | | | | | [address] | | | | | | [phone] | | | +--------+ + + + [...]
[~2020-04-29 21:51] MED LIST: CLEOCIN HCL300 MG PO; SUBVENITE150 MG PO
--- OUTSIDE RECORDS SUMMARY | 2020-04-29 21:54 | XMS ---
PreManage Notification: SPRING MCNAMARA Security Bacon Skinner Events No recent Security Events currently on file CRITERIA MET - 6 ED Visits in 6 Months - [facility] - 2 Visits in 30 Days CARE PROVIDERS Jose Perez Community Health Worker 06/29/2019-Dionicio Navarro - PHONE: [phone] SOLANGE KRISHNAN [facility] Current PHONE: Unknown Jeanette has no Care Guidelines for this patient. Kostas VISIT COUNT (12 MO.) 6 [facility] [address] TOTAL 10 NOTE: Visits indicate total known visits. ED/UCC VISIT TRACKING (12 MO.) 04/29/2020 21:51 [facility] [place] TYPE: Emergency COMPLAINT: - ALTERED LOC 04/15/2020 23:50 [facility] [place] TYPE: Emergency DIAGNOSES: - Epilepsy, unspecified, not intractable, without status epilep - +SCREENING EPILEPSY 03/25/2020 14:28 [facility] [place] TYPE: Emergency COMPLAINT: - CHIN LAC DIAGNOSES: - Encounter for immunization - Other penitentiary (current) drug therapy - Unspecified convulsions - Nicotine dependence, unspecified, uncomplicated - Laceration without foreign body of other part of head, initia - Exposure to other specified factors, initial encounter 02/24/2020 04:15 [facility] [place] TYPE: Emergency DIAGNOSES: - Unspecified convulsions - siezure 12/19/2019 20:24 Doroteo Wood [facility] TYPE: Emergency DIAGNOSES: - AMB - Seizure (Adult - Prior Hx Of) - Unspecified convulsions 11/27/2019 11:17 [facility] [place] TYPE: Emergency DIAGNOSES: - SEIZURES 09/28/2019 10:12 [facility] [place] [facility]: Emergency DIAGNOSES: - Left Knee Pain - Knee Pain - Unspecified injury of left lower leg, initial encounter 07/19/2019 08:[facility] DIAGNOSES: - siezures - Epilepsy, unspecified, not intractable, without status epilep 07/11/2019 07:43 [facility] [place] TYPE: Emergency DIAGNOSES: - Epilepsy, unspecified, not intractable, without status epilep - SEIZURE - Unspecified convulsions 06/26/2019 08:[facility] DIAGNOSES: - seizure - Unspecified convulsions INPATIENT VISIT TRACKING (12 MO.) 11/27/2019 11:17 [facility] [place] TYPE: Medical Surgical DIAGNOSES: - SEIZURES - Unspecified convulsions [email or web address]
== END 2020-04-30 07:28 | disposition short-term general hospital (02) ==
LOC: ED 21:51
PROC: 0T9B80Z Drainage of Bladder with Drainage Device, Via Natural or Artificial Opening Endoscopic (ICD-10-PCS; principal; 2020-04-30)
DX: G40.409 Other generalized epilepsy and epileptic syndromes, not intractable, without status epilepticus (principal); S02.611A Fracture of condylar process of right mandible, initial encounter for closed fracture; X58.XXXA Exposure to other specified factors, initial encounter
CPT/HCPCS: 51702; 70450; 80053; 81001; 83735; 85025; 99285-25; G0480; J1953; J2060; J7030